=== PATIENT | female | born 1955 | race Two or more races ===

== ENCOUNTER 2019-08-20 03:25 | Emergency (ER) | payer MEDICARE, MEDICAID ==
[~2019-08-20] VITALS: Ht 162.6 cm; Wt 72.6 kg
[2019-08-20] MEDS ORDERED: ONDANSETRON HCL 4 MG/2 ML VIAL IV ONE ×2 (04:15→09:30)
[2019-08-20] MEDS ORDERED: MORPHINE SULFATE 4 MG/ML SYR/VIAL IV ONE ×3 (04:15→09:30)
[2019-08-20] MEDS ORDERED: SODIUM CHLORIDE 0.9% 1,000 ML IV ONE (04:15)
[2019-08-20 04:20] LABS: Basophils # (auto) 0.1 10 ^3/uL (0-0.2); Basophils % (auto) 0.5 % (0.0-2.0); Eosinophils # (auto) 0 10 ^3/uL (0-0.8); Eosinophils % (auto) 0.1 % (0.0-7.0); Hematocrit 42.6 % (36.0-46.0); Hemoglobin 14.3 g/dL (12.2-16.2); Lymphocytes # (auto) 0.2 10 ^3/uL (0.4-5.4); Lymphocytes % (auto) 1.5 % (10.0-50.0); Mean Corpuscular Hemoglobin 30.9 pg (28.0-32.0); Mean Corpuscular Hgb Conc. 33.7 g/dL (32.0-36.0); Mean Corpuscular Volume 91.7 fL (80.0-100.0); Monocytes # (auto) 0.8 10 ^3/uL (0-1.3); Monocytes % (auto) 5.8 % (0.0-12.0); Neutrophils # (auto) 13.1 10 ^3/uL (1.6-8.6); Neutrophils % (auto) 92.1 % (37.0-80.0); Platelet Count (auto) 524 10^3/uL (140-450); Red Blood Cells 4.64 10^6/uL (4.0-5.20); Red Cell Distribution Width 16.7 % (11.8-14.3); White Blood Cell 14.3 10^3/uL (4.4-10.8)
[2019-08-20 04:31] LABS: Albumin 3.9 g/dL (3.4-5.0); BUN/Creatinine Ratio 21.3; Calcium 9.4 mg/dL (8.5-10.1); Potassium 4.7 mmol/L (3.5-5.1)
[2019-08-20 04:33] LABS: Bilirubin, Total 1.1 mg/dL (0.2-1.0)
[2019-08-20] MEDS ORDERED: SODIUM CHLORIDE 0.9% 500 ML IVB ONE (06:19)
[2019-08-20] MEDS ORDERED: PANTOPRAZOLE 40 MG/10 ML VIAL INJ IV STA (06:19)
[2019-08-20] MEDS ORDERED: PIPERACILLIN-TAZOB 3.375GM 100 ML IV ONE (07:00)
[2019-08-20 08:47] VITALS: BP 183/82
[2019-08-20] MEDS ORDERED: MORPHINE SULFATE 4 MG/ML SYR/VIAL ONE (09:11)
[2019-08-20] MEDS ORDERED: ONDANSETRON HCL 4 MG/2 ML VIAL ONE (09:11)
== END 2019-08-20 09:34 | disposition short-term general hospital (02) ==
LOC: ER 03:32 → EDBD 03:32 → ER 09:34
DX: K56.609 Unspecified intestinal obstruction, unspecified as to partial versus complete obstruction (principal); E11.9 Type 2 diabetes mellitus without complications; E78.5 Hyperlipidemia, unspecified; I10 Essential (primary) hypertension; Z90.710 Acquired absence of both cervix and uterus
CPT/HCPCS: 36415; 71045; 74176; 80053; 82962; 83690; 85025; 96361; 96365; 96366; 96375; 96376; 99285; C9113; J2270; J2405; J2543

== ENCOUNTER 2023-02-13 10:36 | Inpatient (IN) | payer MEDICARE, MEDICAID ==
[~2023-02-13] VITALS: Ht 154.9 cm; Wt 78.8 kg
[2023-02-13 12:00] LABS: Basophils # (auto) 0 10 ^3/uL (0-0.2); Basophils % (auto) 0.6 % (0.0-2.0); Eosinophils # (auto) 0.1 10 ^3/uL (0-0.8); Eosinophils % (auto) 1.7 % (0.0-7.0); Hematocrit 36.4 % (36.0-46.0); Hemoglobin 11.6 g/dL (12.2-16.2); Lymphocytes # (auto) 0.8 10 ^3/uL (0.4-5.4); Lymphocytes % (auto) 14.1 % (10.0-50.0); Mean Corpuscular Hemoglobin 31.8 pg (28.0-32.0); Mean Corpuscular Volume 99.4 fL (80.0-100.0); Monocytes # (auto) 0.6 10 ^3/uL (0-1.3); Monocytes % (auto) 10.4 % (0.0-12.0); Neutrophils # (auto) 4.3 10 ^3/uL (1.6-8.6); Neutrophils % (auto) 73.2 % (37.0-80.0); Nucleated Red Blood Cells % 0.2 %; Red Blood Cells 3.66 10^6/uL (4.0-5.20); Red Cell Distribution Width 17.4 % (11.8-14.3); White Blood Cell 5.8 10^3/uL (4.4-10.8)
[2023-02-13] MEDS ORDERED: FUROSEMIDE 100 MG/10ML VIAL IV ONE (12:30)
[2023-02-13 12:32] LABS: Erythrocyte Sedimentation Rate 15 mm/hr (0-20)
[2023-02-13 12:43] LABS: Alanine Aminotransferase 50 U/L (7-40); Albumin 4.1 g/dL (3.2-4.8); Alkaline Phosphatase 82 U/L (46-116); Anion Gap 7 (5-15); Aspartate Aminotransferase 28 U/L (13-40); BUN/Creatinine Ratio 21.1 (10.0-20.0); Bilirubin, Total 0.8 mg/dL (0.2-1.0); Blood Urea Nitrogen 16 mg/dL (9-23); Calcium 8.9 mg/dL (8.5-10.1); Carbon Dioxide 32 mmol/L (20-30); Chloride 104 mmol/L (98-107); Glucose 79 mg/dL (74-106); Potassium 3.9 mmol/L (3.5-5.1); Sodium 143 mmol/L (136-145); Total Protein 6.6 g/dL (5.7-8.2)
[2023-02-13 12:51] LABS: CRP High Sensitivity 1.13 mg/dL (<1.0)
[2023-02-13 13:33] LABS: Urine Bacteria NONE SEEN /hpf (None Seen); Urine Blood Negative /uL (Negative); Urine Clarity Clear (Clear); Urine Color Yellow (Yellow); Urine Protein, UAD 1+ (Negative); Urine Specific Gravity 1.026 (1.001-1.035); Urine Urobilinogen Normal (Negative); Urine WBC 12 /hpf (0 - 5)
[2023-02-13 16:04] LABS: Base Excess 2.7 mmol/L (-2.0-2.0)
[2023-02-13] MEDS ORDERED: NITROGLYCERIN 0.4 MG SL TAB SL PRN (17:45)
[2023-02-13] MEDS ORDERED: MORPHINE SULFATE INJ 2 MG/ml SYRG IV PRN (17:45)
[2023-02-13] MEDS ORDERED: METH2.5T62 PO (17:48)
[2023-02-13] MEDS ORDERED: TRIA37.587 PO (17:48)
[2023-02-13] MEDS ORDERED: MET50T PO (17:48)
[2023-02-13] MEDS ORDERED: EMPA1TAB PO (17:48)
[2023-02-13] MEDS ORDERED: AMLO1TAB23 PO (17:48)
[2023-02-13] MEDS ORDERED: APIX5TAB PO (17:48)
[2023-02-13] MEDS ORDERED: LOSA100T58 PO (17:48)
[2023-02-13] MEDS ORDERED: GLIP10TA9 PO (17:48)
[2023-02-13] MEDS ORDERED: DRON400T PO (17:48)
[2023-02-13] MEDS ORDERED: METF-372 PO (17:48)
[2023-02-13] MEDS ORDERED: GAB100C PO (17:48)
[2023-02-13] MEDS ORDERED: METOCLOPRAMIDE HCL 5MG/ml INJ 2ml VIAL IV PRN (18:00)
[2023-02-13] MEDS ORDERED: cefTRIAXone 1GM/50ML D5W 50 ML IV ONE (18:00)
[2023-02-13] MEDS ORDERED: DEXTROSE (50%) 50ML SYRG IV PRN (18:00)
[2023-02-13] MEDS: FUROSEMIDE 20 MG/2 ML VIAL IV SCH (18:54)
[2023-02-13 19:35] VITALS: PULSE 98; RESP 22; O2SAT 95
[2023-02-13] MEDS: ACCU-CHEK COMFORT CURVE STRIP VI SCH (22:03)
[2023-02-13] MEDS: InsuLIN REG 1unit/0.01ml Soln (100units/ml) SC SCH (22:12)
[2023-02-13] MEDS: PRAVASTATIN SODIUM 20 MG TAB PO SCH (22:14)
[2023-02-13] MEDS: DRONEDARONE HCL 400 MG TAB PO SCH (22:16)
[2023-02-13] MEDS: APIXABAN 5 MG TAB PO SCH (22:16)
[2023-02-13] MEDS: DOCUSATE SOD 100 MG CAP PO SCH (22:16)
[2023-02-13 23:51] VITALS: BP 126/73; PULSE 120; RESP 16; TEMP 98.4; O2SAT 93
[2023-02-14] MEDS: ACETAMINOPHEN 325 MG TAB PO PRN (04:21)
[2023-02-14 05:00] VITALS: BP 135/87; PULSE 104; RESP 16; TEMP 98.3; O2SAT 97
[2023-02-14] MEDS: InsuLIN REG 1unit/0.01ml Soln (100units/ml) SC SCH ×4 (06:22→22:00)
[2023-02-14] MEDS: ACCU-CHEK COMFORT CURVE STRIP VI SCH ×4 (06:22→22:21)
[2023-02-14] MEDS: FUROSEMIDE 20 MG/2 ML VIAL IV SCH ×2 (06:23→17:58)
[2023-02-14 06:46] LABS: Basophils # (auto) 0 10 ^3/uL (0-0.2); Basophils % (auto) 0.4 % (0.0-2.0); Eosinophils # (auto) 0.1 10 ^3/uL (0-0.8); Eosinophils % (auto) 1.8 % (0.0-7.0); Hematocrit 34.8 % (36.0-46.0); Hemoglobin 11.3 g/dL (12.2-16.2); Lymphocytes # (auto) 0.7 10 ^3/uL (0.4-5.4); Mean Corpuscular Hemoglobin 31.9 pg (28.0-32.0); Mean Corpuscular Hgb Conc. 32.4 g/dL (32.0-36.0); Mean Corpuscular Volume 98.3 fL (80.0-100.0); Monocytes # (auto) 0.8 10 ^3/uL (0-1.3); Monocytes % (auto) 12.7 % (0.0-12.0); Neutrophils # (auto) 4.6 10 ^3/uL (1.6-8.6); Neutrophils % (auto) 74.1 % (37.0-80.0); Nucleated Red Blood Cells % 0.1 %; Red Blood Cells 3.54 10^6/uL (4.0-5.20); White Blood Cell 6.1 10^3/uL (4.4-10.8)
[2023-02-14 06:59] LABS: Alanine Aminotransferase 39 U/L (7-40); Albumin 3.9 g/dL (3.2-4.8); Alkaline Phosphatase 77 U/L (46-116); Anion Gap 7 (5-15); Aspartate Aminotransferase 18 U/L (13-40); BUN/Creatinine Ratio 16.5 (10.0-20.0); Bilirubin, Total 0.7 mg/dL (0.2-1.0); Blood Urea Nitrogen 13 mg/dL (9-23); Calcium 8.6 mg/dL (8.5-10.1); Carbon Dioxide 31 mmol/L (20-30); Chloride 103 mmol/L (98-107); Glucose 97 mg/dL (74-106); Potassium 3.2 mmol/L (3.5-5.1); Sodium 141 mmol/L (136-145); Total Protein 6.5 g/dL (5.7-8.2)
[2023-02-14 08:00] VITALS: BP 138/82; PULSE 91; PULSE 95; RESP 16; TEMP 98.9; O2SAT 93
[2023-02-14] MEDS: cefTRIAXone 1GM/50ML D5W 50 ML IV SCH (08:21)
[2023-02-14] MEDS ORDERED: PANTOPRAZOLE 40 MG/10 ML VIAL INJ IV SCH (10:00)
[2023-02-14] MEDS: METHOTREXATE 2.5 MG TAB PO SCH (10:00)
[2023-02-14] MEDS: DOCUSATE SOD 100 MG CAP PO SCH ×2 (10:55→22:19)
[2023-02-14] MEDS: LOSARTAN POTASSIUM 50 MG TAB PO SCH (10:57)
[2023-02-14] MEDS: APIXABAN 5 MG TAB PO SCH ×2 (10:57→22:19)
[2023-02-14] MEDS: GABAPENTIN 100 MG CAP PO SCH (10:58)
[2023-02-14] MEDS: METOPROLOL TARTRATE 50 MG TAB PO SCH (10:58)
[2023-02-14] MEDS: EMPAGLIFLOZIN 10 MG TAB PO SCH (10:58)
[2023-02-14] MEDS: DRONEDARONE HCL 400 MG TAB PO SCH ×2 (10:58→22:20)
[2023-02-14] MEDS: amLODIPine BESYLATE 5 MG TAB PO SCH (10:59)
[2023-02-14] MEDS: TRIAMTERENE/HCTZ 37.5/25 MG CAP/TAB PO SCH (11:42)
[2023-02-14 12:00] VITALS: BP 120/86; PULSE 109; RESP 16; TEMP 98.4; O2SAT 94
[2023-02-14 16:00] VITALS: BP 101/64; PULSE 83; RESP 16; TEMP 98.1; O2SAT 96
[2023-02-14 19:30] VITALS: PULSE 85; PULSE 86; RESP 19; O2SAT 96
[2023-02-14 22:00] VITALS: BP 122/78; PULSE 89; RESP 22; TEMP 98.9; O2SAT 99
[2023-02-14] MEDS: PRAVASTATIN SODIUM 20 MG TAB PO SCH (22:20)
[2023-02-15] VITALS (8 sets, daily range): BP systolic 115–158; BP diastolic 80–91; PULSE 58–102; RESP 18–22; TEMP 97.9–98.5; O2SAT 92–98
[2023-02-15] MEDS: ACCU-CHEK COMFORT CURVE STRIP VI SCH ×4 (05:31→22:36)
[2023-02-15] MEDS: InsuLIN REG 1unit/0.01ml Soln (100units/ml) SC SCH ×4 (05:31→22:42)
[2023-02-15] MEDS: FUROSEMIDE 20 MG/2 ML VIAL IV SCH ×2 (05:31→18:24)
[2023-02-15] MEDS: ACETAMINOPHEN 325 MG TAB PO PRN ×2 (05:32→22:31)
[2023-02-15] MEDS: EMPAGLIFLOZIN 10 MG TAB PO SCH (09:40)
[2023-02-15] MEDS: APIXABAN 5 MG TAB PO SCH ×2 (09:40→22:32)
[2023-02-15] MEDS: LOSARTAN POTASSIUM 50 MG TAB PO SCH (09:40)
[2023-02-15] MEDS: DRONEDARONE HCL 400 MG TAB PO SCH ×2 (09:40→22:32)
[2023-02-15] MEDS: METOPROLOL TARTRATE 50 MG TAB PO SCH (09:40)
[2023-02-15] MEDS: TRIAMTERENE/HCTZ 37.5/25 MG CAP/TAB PO SCH (09:40)
[2023-02-15] MEDS: cefTRIAXone 1GM/50ML D5W 50 ML IV SCH (09:40)
[2023-02-15] MEDS: DOCUSATE SOD 100 MG CAP PO SCH ×2 (09:41→22:32)
[2023-02-15] MEDS: GABAPENTIN 100 MG CAP PO SCH (09:41)
[2023-02-15] MEDS: amLODIPine BESYLATE 5 MG TAB PO SCH (09:41)
[2023-02-15] MEDS: METHOTREXATE 2.5 MG TAB PO SCH (09:45)
[2023-02-15] MEDS ORDERED: LACTULOSE 20Gm/30ML SOLN PO ONE (11:45)
[2023-02-15] MEDS ORDERED: METOPROLOL TARTRATE 1MG/1ML-5ML VIAL IV ONE (12:45)
[2023-02-15] MEDS: PRAVASTATIN SODIUM 20 MG TAB PO SCH (22:31)
[2023-02-16] VITALS (8 sets, daily range): BP systolic 120–131; BP diastolic 63–100; PULSE 54–136; RESP 16–20; TEMP 97.3–98.1; O2SAT 90–96
[2023-02-16] MEDS: FUROSEMIDE 20 MG/2 ML VIAL IV SCH ×2 (06:00→17:04)
[2023-02-16] MEDS: InsuLIN REG 1unit/0.01ml Soln (100units/ml) SC SCH ×4 (06:00→22:48)
[2023-02-16] MEDS: ACCU-CHEK COMFORT CURVE STRIP VI SCH ×4 (06:02→22:48)
[2023-02-16] MEDS ORDERED: METOPROLOL TARTRATE 1MG/1ML-5ML VIAL IV PRN (08:15)
[2023-02-16] MEDS: cefTRIAXone 1GM/50ML D5W 50 ML IV SCH (08:35)
[2023-02-16] MEDS: DRONEDARONE HCL 400 MG TAB PO SCH ×2 (08:36→22:44)
[2023-02-16] MEDS: TRIAMTERENE/HCTZ 37.5/25 MG CAP/TAB PO SCH (08:36)
[2023-02-16] MEDS: GABAPENTIN 100 MG CAP PO SCH (08:37)
[2023-02-16] MEDS: LOSARTAN POTASSIUM 50 MG TAB PO SCH (08:37)
[2023-02-16] MEDS: APIXABAN 5 MG TAB PO SCH ×2 (08:37→22:48)
[2023-02-16] MEDS: DOCUSATE SOD 100 MG CAP PO SCH ×2 (08:37→22:48)
[2023-02-16] MEDS: EMPAGLIFLOZIN 10 MG TAB PO SCH (08:37)
[2023-02-16] MEDS: METOPROLOL TARTRATE 25 MG TAB PO SCH ×2 (08:38→22:44)
[2023-02-16] MEDS: amLODIPine BESYLATE 5 MG TAB PO SCH (08:46)
[2023-02-16] MEDS ORDERED: FLEET ENEMA(ADULT) 135 ML PR ONE (12:30)
[2023-02-16] MEDS: ACETAMINOPHEN 325 MG TAB PO PRN (12:47)
[2023-02-16 16:27] LABS: Basophils # (auto) 0.1 10 ^3/uL (0-0.2); Basophils % (auto) 1.1 % (0.0-2.0); Eosinophils # (auto) 0.2 10 ^3/uL (0-0.8); Eosinophils % (auto) 3.3 % (0.0-7.0); Hematocrit 37.1 % (36.0-46.0); Hemoglobin 12.3 g/dL (12.2-16.2); Lymphocytes # (auto) 0.7 10 ^3/uL (0.4-5.4); Lymphocytes % (auto) 13.7 % (10.0-50.0); Mean Corpuscular Hemoglobin 32.3 pg (28.0-32.0); Mean Corpuscular Hgb Conc. 33.1 g/dL (32.0-36.0); Mean Corpuscular Volume 97.7 fL (80.0-100.0); Monocytes # (auto) 0.7 10 ^3/uL (0-1.3); Monocytes % (auto) 12.4 % (0.0-12.0); Neutrophils # (auto) 3.8 10 ^3/uL (1.6-8.6); Neutrophils % (auto) 69.5 % (37.0-80.0); Red Cell Distribution Width 16.5 % (11.8-14.3); White Blood Cell 5.5 10^3/uL (4.4-10.8)
[2023-02-16] MEDS: PRAVASTATIN SODIUM 20 MG TAB PO SCH (22:43)
[2023-02-17] VITALS (11 sets, daily range): BP systolic 111–138; BP diastolic 54–80; PULSE 74–115; RESP 12–19; TEMP 98.1–98.9; O2SAT 90–96
[2023-02-17] MEDS: FUROSEMIDE 20 MG/2 ML VIAL IV SCH ×2 (06:16→17:16)
[2023-02-17] MEDS: InsuLIN REG 1unit/0.01ml Soln (100units/ml) SC SCH ×4 (06:16→22:47)
[2023-02-17] MEDS: ACCU-CHEK COMFORT CURVE STRIP VI SCH ×4 (06:18→22:00)
[2023-02-17] MEDS ORDERED: fentaNYL CITRATE 100 MCG/2 ML VL IV ONE (08:15)
[2023-02-17] MEDS ORDERED: MIDAZOLAM HCL 2MG/2ML 2ml VIAL (1mg/ml) IV ONE (08:15)
[2023-02-17] MEDS ORDERED: LIDOCAINE VISCOUS 2% 15ML UD PO ONE (08:15)
[2023-02-17] MEDS ORDERED: NALOXONE HCL 0.4 MG/ML VIAL ONE (08:49)
[2023-02-17] MEDS ORDERED: FLUMAZENIL 0.1 MG/ML INJ 10ML MDV IV ONE (08:49)
[2023-02-17] MEDS ORDERED: AMIODARONE HCL 200 MG TAB PO ONE (10:30)
[2023-02-17] MEDS: amLODIPine BESYLATE 5 MG TAB PO SCH (10:49)
[2023-02-17] MEDS: GABAPENTIN 100 MG CAP PO SCH (10:49)
[2023-02-17] MEDS: TRIAMTERENE/HCTZ 37.5/25 MG CAP/TAB PO SCH (10:49)
[2023-02-17] MEDS: cefTRIAXone 1GM/50ML D5W 50 ML IV SCH (10:49)
[2023-02-17] MEDS: DOCUSATE SOD 100 MG CAP PO SCH ×2 (10:49→22:42)
[2023-02-17] MEDS: EMPAGLIFLOZIN 10 MG TAB PO SCH (10:50)
[2023-02-17] MEDS: AMOXICILLIN TRIHYDRATE 250 MG CAP PO SCH ×2 (14:52→22:43)
[2023-02-17] MEDS ORDERED: RIVAROXABAN 20 MG TAB PO SCH (18:00)
[2023-02-17] MEDS: PRAVASTATIN SODIUM 20 MG TAB PO SCH (22:40)
[2023-02-17] MEDS: CARVEDILOL 12.5 MG TAB PO SCH (22:42)
[2023-02-17] MEDS: AMIODARONE HCL 200 MG TAB PO SCH (22:43)
[2023-02-17] MEDS: SACUBITRIL-VALSARTAN 24mg/26mg TAB PO SCH (22:43)
[2023-02-18] VITALS (7 sets, daily range): BP systolic 97–116; BP diastolic 65–87; PULSE 51–137; RESP 17–18; TEMP 97.8–98.1; O2SAT 94–97
[2023-02-18] MEDS: AMOXICILLIN TRIHYDRATE 250 MG CAP PO SCH ×2 (06:00→13:29)
[2023-02-18] MEDS: FUROSEMIDE 20 MG/2 ML VIAL IV SCH (06:01)
[2023-02-18] MEDS: ACCU-CHEK COMFORT CURVE STRIP VI SCH ×2 (06:01→11:19)
[2023-02-18] MEDS: InsuLIN REG 1unit/0.01ml Soln (100units/ml) SC SCH ×2 (06:13→11:19)
[2023-02-18] MEDS: DOCUSATE SOD 100 MG CAP PO SCH (08:59)
[2023-02-18] MEDS: EMPAGLIFLOZIN 10 MG TAB PO SCH (08:59)
[2023-02-18] MEDS: AMIODARONE HCL 200 MG TAB PO SCH (09:00)
[2023-02-18] MEDS: TRIAMTERENE/HCTZ 37.5/25 MG CAP/TAB PO SCH (09:00)
[2023-02-18] MEDS: GABAPENTIN 100 MG CAP PO SCH (09:01)
[2023-02-18] MEDS: amLODIPine BESYLATE 5 MG TAB PO SCH (09:01)
[2023-02-18] MEDS: CARVEDILOL 12.5 MG TAB PO SCH (09:01)
[2023-02-18] MEDS: ACETAMINOPHEN 325 MG TAB PO PRN (09:05)
[2023-02-18] MEDS: SACUBITRIL-VALSARTAN 24mg/26mg TAB PO SCH (09:05)
[2023-02-18] MEDS ORDERED: AMIO200T33 PO (11:44)
[2023-02-18] MEDS ORDERED: SACU1TAB PO (11:44)
[2023-02-18] MEDS ORDERED: CAR125T PO (11:44)
[2023-02-18] MEDS ORDERED: RIVA20TA PO (11:44)
[2023-02-18] MEDS ORDERED: AMOX500C2 PO (11:47)
== END 2023-02-18 16:31 | disposition home or self-care (01) | DRG 291 ==
LOC: ER 10:36 → TELE-WESTW 17:38 → TELE 17:38 → TELE-WESTW 22:44
PROVIDERS: ADMIT Nurse Practitioner Family; ATTEND Family Medicine
PROC: B246ZZ4 Ultrasonography of Right and Left Heart, Transesophageal (ICD-10-PCS; principal; 2023-02-17)
DX: I11.0 Hypertensive heart disease with heart failure (principal); I50.43 Acute on chronic combined systolic (congestive) and diastolic (congestive) heart failure; J96.01 Acute respiratory failure with hypoxia; N30.00 Acute cystitis without hematuria; J90 Pleural effusion, not elsewhere classified; K59.00 Constipation, unspecified; E11.9 Type 2 diabetes mellitus without complications; E03.9 Hypothyroidism, unspecified; E78.00 Pure hypercholesterolemia, unspecified; I48.0 Paroxysmal atrial fibrillation; M06.9 Rheumatoid arthritis, unspecified; Z79.01 Long term (current) use of anticoagulants; Z79.899 Other long term (current) drug therapy; Z90.710 Acquired absence of both cervix and uterus
CPT/HCPCS: 36415; 36600; 71045; 74176; 80053; 81001; 82805; 82962; 83880; 84443; 84484; 85025; 85652; 86141; 87086; 87088; 87186; 93005; 93312; 96365; 96372; 96375; 96376; 99152; C9113; G0378; J0696; J1815; J2250

== ENCOUNTER 2023-10-22 10:21 | Emergency (ER) | payer MEDICARE, MEDICAID ==
[~2023-10-22] VITALS: Ht 157.5 cm; Wt 79.9 kg
[~2023-10-22 10:21] MED LIST: AMIO200T33 PO; AMLO1TAB23 PO; AMOX500C2 PO; APIX5TAB PO; CAR125T PO; DRON400T PO; EMPA1TAB PO; GAB100C PO; GLIP10TA9 PO; LOSA-535 PO; MET50T PO; METF-372 PO; METH2.5T62 PO; RIVA20TA PO; SACU1TAB PO; TRIA37.587 PO
[2023-10-22 11:41] VITALS: BP 176/76; PULSE 50; RESP 18; TEMP 97.9; O2SAT 92
== END 2023-10-22 14:22 | disposition home or self-care (01) ==
LOC: ER 10:21
DX: E04.9 Nontoxic goiter, unspecified (principal); I48.91 Unspecified atrial fibrillation; E11.9 Type 2 diabetes mellitus without complications; I10 Essential (primary) hypertension; E78.5 Hyperlipidemia, unspecified; Z90.710 Acquired absence of both cervix and uterus; Z79.899 Other long term (current) drug therapy
CPT/HCPCS: 76536; 82962; 93005

== ENCOUNTER 2023-12-09 01:38 | Inpatient (IN) | payer MEDICARE, MEDICAID ==
[2023-12-09] VITALS (8 sets, daily range): BP systolic 145–181; BP diastolic 59–81; PULSE 60–83; RESP 14–20; TEMP 98.3–99.8; O2SAT 19–97
[~2023-12-09] VITALS: Ht 157.5 cm; Wt 84.2 kg
[2023-12-09 02:35] LABS: Basophils # (auto) 0 10 ^3/uL (0-0.2); Basophils % (auto) 0.3 % (0.0-2.0); Eosinophils # (auto) 0 10 ^3/uL (0-0.8); Eosinophils % (auto) 0.2 % (0.0-7.0); Hemoglobin 15.9 g/dL (12.2-16.2); Lymphocytes # (auto) 0.8 10 ^3/uL (0.4-5.4); Lymphocytes % (auto) 7.5 % (10.0-50.0); Mean Corpuscular Hemoglobin 33.8 pg (28.0-32.0); Mean Corpuscular Hgb Conc. 33.8 g/dL (32.0-36.0); Monocytes # (auto) 0.5 10 ^3/uL (0-1.3); Monocytes % (auto) 5.1 % (0.0-12.0); Neutrophils # (auto) 8.9 10 ^3/uL (1.6-8.6); Neutrophils % (auto) 86.9 % (37.0-80.0); Platelet Count (auto) 290 10^3/uL (140-450); Red Cell Distribution Width 16.3 % (11.8-14.3); White Blood Cell 10.2 10^3/uL (4.4-10.8)
[2023-12-09 02:55] LABS: Alanine Aminotransferase 36 U/L (7-40); Alkaline Phosphatase 107 U/L (46-116)
[2023-12-09 02:56] LABS: Albumin 4.9 g/dL (3.2-4.8); Anion Gap 10 (5-15); Aspartate Aminotransferase 23 U/L (13-40); BUN/Creatinine Ratio 18.7 (10.0-20.0); Bilirubin, Total 0.7 mg/dL (0.2-1.0); Blood Urea Nitrogen 26 mg/dL (9-23); Calcium 10.6 mg/dL (8.7-10.4); Carbon Dioxide 29 mmol/L (20-30); Chloride 97 mmol/L (98-107); Glucose 331 mg/dL (74-106); Lipase 37 U/L (12-53); Potassium 4.4 mmol/L (3.5-5.1); Sodium 136 mmol/L (136-145); Total Protein 8.3 g/dL (5.7-8.2)
[2023-12-09] MEDS: ONDANSETRON HCL 4 MG/2 ML VIAL IV ONE (04:31)
[2023-12-09] MEDS: HYDROmorphone HCL 2 MG/ML VL/or syr IV ONE (04:33)
[2023-12-09] MEDS: SODIUM CHLORIDE 0.9% 2,000 ML IV ONE (04:40)
[2023-12-09] MEDS: PIPERACILLIN-TAZOB 3.375GM 100 ML IV ONE (04:40)
[2023-12-09] MEDS ORDERED: ONDANSETRON HCL 4 MG/2 ML VIAL IV PRN (07:30)
[2023-12-09] MEDS ORDERED: DEXTROSE (50%) 50ML SYRG IV PRN (07:30)
[2023-12-09] MEDS: SODIUM CHLORIDE 0.9% 1,000 ML IV SCH ×2 (08:21→22:00)
[2023-12-09 10:17] LABS: Urine Bacteria None Seen /hpf (None Seen)
[2023-12-09] MEDS ORDERED: GASTROGRAFIN 120 ML SOL ONE (10:27)
[2023-12-09 10:32] LABS: Urine Blood Negative /uL (Negative); Urine Clarity Clear (Clear); Urine Color Light-Yellow (Yellow); Urine Protein, UAD 1+ (Negative); Urine Specific Gravity 1.032 (1.001-1.035); Urine Urobilinogen Normal (Negative); Urine WBC 27 /hpf (0 - 5)
[2023-12-09] MEDS: ACCU-CHEK COMFORT CURVE STRIP VI SCH (12:00)
[2023-12-09] MEDS: InsuLIN REG 1unit/0.01ml Soln (100units/ml) SC SCH (12:00)
[2023-12-09] MEDS: hydrALAZINE HCL 20 MG/ML VL IV PRN (13:23)
[2023-12-09] MEDS: MORPHINE SULFATE INJ 2 MG/ml SYRG IV PRN (13:23)
[2023-12-09 16:34] LABS: Basophils # (auto) 0 10 ^3/uL (0-0.2); Basophils % (auto) 0.2 % (0.0-2.0); Eosinophils # (auto) 0 10 ^3/uL (0-0.8); Eosinophils % (auto) 0.7 % (0.0-7.0); Hemoglobin 14.1 g/dL (12.2-16.2); Lymphocytes # (auto) 0.6 10 ^3/uL (0.4-5.4); Lymphocytes % (auto) 8.8 % (10.0-50.0); Mean Corpuscular Hgb Conc. 33.5 g/dL (32.0-36.0); Mean Corpuscular Volume 98.6 fL (80.0-100.0); Monocytes # (auto) 0.5 10 ^3/uL (0-1.3); Monocytes % (auto) 7.6 % (0.0-12.0); Neutrophils # (auto) 5.9 10 ^3/uL (1.6-8.6); Neutrophils % (auto) 82.7 % (37.0-80.0); Platelet Count (auto) 267 10^3/uL (140-450); Red Blood Cells 4.26 10^6/uL (4.0-5.20); Red Cell Distribution Width 16.3 % (11.8-14.3); White Blood Cell 7.1 10^3/uL (4.4-10.8)
[2023-12-10] VITALS (13 sets, daily range): BP systolic 125–177; BP diastolic 55–77; PULSE 53–94; RESP 15–20; TEMP 97.7–99.4; O2SAT 93–98
[2023-12-10 00:20] LABS: Base Excess 1.2 mmol/L (-2.0-3.0)
[2023-12-10 00:58] LABS: Basophils # (auto) 0 10 ^3/uL (0-0.2); Basophils % (auto) 0.3 % (0.0-2.0); Eosinophils # (auto) 0 10 ^3/uL (0-0.8); Eosinophils % (auto) 0.6 % (0.0-7.0); Hematocrit 39.1 % (36.0-46.0); Hemoglobin 13.2 g/dL (12.2-16.2); Lymphocytes # (auto) 0.7 10 ^3/uL (0.4-5.4); Mean Corpuscular Hemoglobin 33.6 pg (28.0-32.0); Mean Corpuscular Hgb Conc. 33.7 g/dL (32.0-36.0); Mean Corpuscular Volume 99.6 fL (80.0-100.0); Monocytes # (auto) 0.4 10 ^3/uL (0-1.3); Monocytes % (auto) 6.5 % (0.0-12.0); Neutrophils # (auto) 5.3 10 ^3/uL (1.6-8.6); Neutrophils % (auto) 81.6 % (37.0-80.0); Nucleated Red Blood Cells % 0.1 %; Platelet Count (auto) 237 10^3/uL (140-450); Red Blood Cells 3.93 10^6/uL (4.0-5.20); Red Cell Distribution Width 16.1 % (11.8-14.3); White Blood Cell 6.5 10^3/uL (4.4-10.8)
[2023-12-10 01:16] LABS: COVID19 ANTIGEN SOFIA FIA NEGATIVE (NEGATIVE)
[2023-12-10 01:19] LABS: Alanine Aminotransferase 26 U/L (7-40); Albumin 4.2 g/dL (3.2-4.8); Alkaline Phosphatase 81 U/L (46-116); Anion Gap 5 (5-15); Aspartate Aminotransferase 21 U/L (13-40); BUN/Creatinine Ratio 23.7 (10.0-20.0); Blood Urea Nitrogen 18 mg/dL (9-23); Calcium 8.8 mg/dL (8.7-10.4); Carbon Dioxide 30 mmol/L (20-30); Glucose 171 mg/dL (74-106)
[2023-12-10 01:20] LABS: Bilirubin, Total 0.4 mg/dL (0.2-1.0); Total Protein 7.1 g/dL (5.7-8.2)
[2023-12-10 01:26] LABS: Chloride 111 mmol/L (98-107); Sodium 146 mmol/L (136-145)
[2023-12-10] MEDS: SACUBITRIL-VALSARTAN 24mg/26mg TAB PO SCH (10:03)
[2023-12-10] MEDS: CARVEDILOL 12.5 MG TAB PO SCH (10:05)
[2023-12-10] MEDS: METOPROLOL TARTRATE 50 MG TAB PO SCH (10:05)
[2023-12-11] VITALS (9 sets, daily range): BP systolic 114–144; BP diastolic 35–79; PULSE 46–89; RESP 16–19; TEMP 97.8–98.4; O2SAT 90–96
== END 2023-12-11 19:25 | disposition home or self-care (01) | DRG 388 ==
LOC: ER 01:38 → OVERFLOW 07:23 → WEST WING 10:26
PROVIDERS: ADMIT Nurse Practitioner; ATTEND Nurse Practitioner Acute Care
PROC: 0D9670Z Drainage of Stomach with Drainage Device, Via Natural or Artificial Opening (ICD-10-PCS; principal; 2023-12-09)
DX: K56.609 Unspecified intestinal obstruction, unspecified as to partial versus complete obstruction (principal); N17.0 Acute kidney failure with tubular necrosis; E66.9 Obesity, unspecified; I10 Essential (primary) hypertension; E78.5 Hyperlipidemia, unspecified; I48.91 Unspecified atrial fibrillation; E11.65 Type 2 diabetes mellitus with hyperglycemia; Z90.710 Acquired absence of both cervix and uterus; Z79.899 Other long term (current) drug therapy; Z79.2 Long term (current) use of antibiotics; Z68.34 Body mass index [BMI] 34.0-34.9, adult
CPT/HCPCS: 36415; 36600; 71045; 74176; 74250; 80053; 81001; 82805; 82962; 83036; 83690; 84484; 85025; 85379; 87426; 96361; 96365; 96375; 99291; G0378; J1815; J2405; J2543

== ENCOUNTER 2024-09-10 11:15 | Inpatient (IN) | payer MEDICARE, MEDICAID ==
[~2024-09-10] VITALS: Ht 157.5 cm; Wt 79.9 kg
--- NOTE | 2024-09-10 12:41 | DVH ---
EXAM: XY CHEST TWO VIEWS ROUTINE HISTORY: sob COMPARISON: Chest x-ray dated 02/13/2023. Chest x-ray and CT scan of the abdomen dated 12/09/2023 wer e not made available in the PACS system for viewing. TECHNIQUE: Frontal and lateral views of the chest were performed. FINDINGS: There is stable scarring in the right lung base with blunting of the right lateral and posterior cost ophrenic angles. There is new opacity along the left lung base lateral chest wall on the frontal view . There is mild interstitial prominence, greatest centrally. No pneumothorax. The heart is enlarged . No fractures are identified about the bony thorax. IMPRESSION: 1. New opacity along the left lateral chest wall may be due to scarring, pneumonia, or mass. Recommen d follow-up CT scan of the chest for better characterization. 2. Stable right lung base scarring. 3. Cardiomegaly.
--- NOTE | 2024-09-10 12:54 | ECG ---
[facility] Test Date: 2024-09-10 Test Time: 11:53:08 Pat Name: ERIC LINDA Department: ER Room: 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
[2024-09-10 13:19] LABS: Basophils # (auto) 0 10 ^3/uL (0-0.2); Basophils % (auto) 0.9 % (0.0-2.0); Eosinophils # (auto) 0.1 10 ^3/uL (0-0.8); Eosinophils % (auto) 2.6 % (0.0-7.0); Hematocrit 36.4 % (36.0-46.0); Lymphocytes # (auto) 0.6 10 ^3/uL (0.4-5.4); Mean Corpuscular Hemoglobin 31.3 pg (28.0-32.0); Mean Corpuscular Volume 94.8 fL (80.0-100.0); Monocytes # (auto) 0.5 10 ^3/uL (0-1.3); Monocytes % (auto) 10.1 % (0.0-12.0); Neutrophils # (auto) 3.5 10 ^3/uL (1.6-8.6); Neutrophils % (auto) 73.4 % (37.0-80.0); Platelet Count (auto) 222 10^3/uL (140-450); Red Blood Cells 3.84 10^6/uL (4.0-5.20); Red Cell Distribution Width 16.1 % (11.8-14.3); White Blood Cell 4.7 10^3/uL (4.4-10.8)
[2024-09-10 13:28] LABS: Sodium 144 mmol/L (136-145)
[2024-09-10 13:29] LABS: Anion Gap 5 (5-15); Calcium 9.6 mg/dL (8.7-10.4); Carbon Dioxide 30 mmol/L (20-31)
[2024-09-10 13:33] LABS: Chloride 109 mmol/L (98-107)
[2024-09-10 13:34] LABS: BUN/Creatinine Ratio 26.6 (10.0-20.0); Blood Urea Nitrogen 21 mg/dL (9-23)
[2024-09-10 13:43] LABS: Glucose 164 mg/dL (74-106)
[2024-09-10 16:15] LABS: Urine Bacteria None Seen /hpf (None Seen)
[2024-09-10] MEDS: FUROSEMIDE 40 MG/4 ML VIAL IV ONE ×2 (16:33→22:15)
[2024-09-10 16:54] LABS: Urine Blood Negative /uL (Negative); Urine Clarity Clear (Clear); Urine Color Light-Yellow (Yellow); Urine Protein, UAD 1+ (Negative); Urine Specific Gravity 1.026 (1.001-1.035); Urine Squamous Epithelial Cell None Seen /hpf (<5); Urine Urobilinogen 2 mg/dL (Negative); Urine WBC 2 /HPF (0-5)
--- NOTE | 2024-09-10 18:49 | ED.PDOC ---
History of Present Illness HPI Comments 69-year-old female who comes in with chief complaint of shortness for breath with some epigastric pain. The patient was also been having a headache for the past two days. The patient was also stating that she has been having some leg swelling x1 day. Chief Complaint: Shortness of Breath Time Seen by MD: 11:19 Primary Care Provider: ? Reviewed Notes: Nurses Notes, Medications, Allergies (No allergies to medications) Allergies: Coded Allergies: NO KNOWN ALLERGIES (Unverified , 08/20/19) Home Meds Active Scripts Amoxicillin Trihydrate (Amoxicillin) 500 Mg Cap, 1 CAP PO TID, #30 CAP Prov:LENA PATTERSON MD 02/18/23 Sacubitril-Valsartan (Entresto 24-26 mg) 1 Tab Tab, 2 TAB PO BID, #180 TAB Prov:LENA PATTERSON MD 02/18/23 Carvedilol (Coreg) 12.5 Mg Tab, 1 TAB PO BID, #180 TAB 1 Refill Prov:LENA PATTERSON MD 02/18/23 Rivaroxaban (XARELTO) 20 Mg Tab, 1 TAB PO DAILY, #90 TAB 3 Refills Prov:LENA PATTERSON MD 02/18/23 Amiodarone Hcl (Amiodarone Hcl) 200 Mg Tab, 1 TAB PO BID, #180 TAB 5 Refills Prov:LENA PATTERSON MD 02/18/23 Reported Medications Gabapentin (Gabapentin) 100 Mg Cap, 1 CAP PO DAILY 02/13/23 Hydrochlorothiazide W/Triamter (Dyazide 37.5/25MG) 1 Cap Cp, 1 CAP PO DAILY 02/13/23 Amlodipine Besylate (Amlodipine Besylate) 10 Mg Tab, 0.5 TAB PO DAILY 02/13/23 Metoprolol Tartrate (LOPRESSOR TABLET) 50 Mg Tb, 1 TAB PO DAILY 02/13/23 Methotrexate (Methotrexate Sodium) 2.5 Mg Tab, 2.5 MG PO DAILY 02/13/23 Metformin Hydrochloride (Metformin Hcl) 1,000 Mg Tab, 1 TAB PO BID 02/13/23 Losartan Potassium (Losartan Potassium) 100 Mg Tab, 1 TAB PO DAILY 02/13/23 Glipizide (Glipizide) 10 Mg Tab, 1 TAB PO BID 02/13/23 Dronedarone Hydrochloride (Multaq) 400 Mg Tab, 1 TAB PO BID 02/13/23 Empagliflozin (Jardiance) 10 Mg Tab, 1 TAB PO DAILY 02/13/23 Apixaban Base (ELIQUIS) 5 Mg Tab, 1 TAB PO BID 02/13/23 Mode of Arrival: Ambulatory Past Medical History PAST MEDICAL HISTORY: AFIB, DM, High Lipids, HTN, PR (PR two weeks ago) Past Medical History (Other): Glaucoma Surgical History: Cholecystectomy, , Hernia Repair, Hysterectomy FOREST EXAMINER History: No Pertinent FOREST EXAMINER History Family History Family History: Family hx of heart zion Social History Smoker: Non-Smoker Alcohol: Denies ETOH Use Drugs: Denies Drug Use Lives In: Home Constitutional: denies: chills, diaphoresis, fatigue, fever, malaise, sweats, weakness, others EENTM: denies: blurred vision, double vision, ear bleeding, ear discharge, ear drainage, ear pain, ear ringing, eye pain, eye redness, hearing loss, mouth pain, mouth swelling, nasal discharge, nose bleeding, nose congestion, nose pain, photophobia, tearing, throat pain, throat swelling, voice changes, others Respiratory: reports: shortness of breath; denies: cough, hemoptysis, o rthopnea, SOB at rest, SOB with excertion, stridor, wheezing, others Cardiovascular: denies: chest pain, dizzy spells, diaphoresis, Dyspnea on exertion, edema, irregular heart beat, left arm pain, lightheadedness, palpitations, PND, syncope, others Gastrointestinal: reports: abdominal pain; denies: abdomen distended, blood streaked bowels, constipated, diarrhea, dysphagia, difficulty swallowing, hematemesis, melena, nausea, poor appetite, poor fluid intake, rectal bleeding, rectal pain, vomiting, others Genitourinary: denies: abnormal vagina bleeding, burning, dyspareunia, dysuria, flank pain, frequency, hematuria, incontinence, pain, , vagina discharge, urgency, others Neurological: reports: headache; denies: dizziness, fainting, left sided numbne ss, left sided weakness, numbness, paresthesia, pre-existing deficit, right sided numbness, right sided weakness, seizure, speech problems, tingling, tremors, weakness, others Musculoskeletal: denies: back pain, gout, joint pain, joint swelling, muscle pain, muscle stiffness, neck pain, others Integumetry: reports: others (Bilateral leg swelling); denies: bruises, change in color, change in hair/nails, dryness, laceration, lesions, lumps, rash, wounds Allergic/Immunocompromised: denies: Difficulty Healing, Frequent Infections, Hives, Itching, others Hematologic/Lymphatic: denies: anemia, blood clots, easy bleeding, easy bruising, swollen glands, others Endocrine: denies: excessive hunger, excessive sweating, excessive thirst, excessive urination, flushing, intolerance to cold, intolerance to heat, unexplained weight gain, unexplained weight loss, others Psychiatric: denies: anxiety, bipolar disorder, depression, hopeless, panic disorder, schizophrenia, sleepless, suicidal, others Physical Exam General Appearance: Moderate Distress HEENT: Normal ENT Inspection, Pharynx Normal, TMs Normal Neck: Full Range of Motion, Non-Tender, Normal, Normal Inspection Respiratory: Chest Non-Tender, Lungs Clear, No Accessory Muscle Use, No Respiratory Distress, Normal Breath Sounds Cardiovascular: Irregular, No Edema, No JVD, No Murmur, No Gallop Breast Exam: Deferred Gastrointestinal: No Organomegaly, Non Tender, No Pulsatile Mass, Normal Bowel Sounds, Soft Genitalia: Deferred Pelvic: Deferred Rectal: Deferred Extremities: No calf tenderness, Normal capillary refill, Normal inspection, Normal range of motion, Non-tender, No pedal edema Musculoskeletal : Apperance: Normal Neurologic: Alert, bingo manager II-XII nml as Tested, No Motor Deficits, Normal Affect, Normal Mood, No Sensory Deficits Cerebellar Function: Normal Reflexes: Normal Skin: Dry, Normal Color, Warm Lymphatic: No Adenopathy Was a procedure done? Was a procedure done?: No EKG EKG : Pulse Rate (adult): 101 [place]: Normal Cardiac Rhythm: Afib Differential Dx Considerations may include: Generalized weakness, electrolyte imbalance, ACS, PR, dehydration X-Ray, Labs, Meds, VS Vital Signs Date Time Temp Pulse Resp B/P (MAP) Pulse Ox O2 Delivery O2 Flow Rate FiO2 09/10/24 19:58 98.1 90 18 138/85 (102) 94 98.1 09/10/24 16:34 94 18 140/82 (101) 92 09/10/24 16:33 140/82 09/10/24 15:53 97.9 105 18 134/92 (106) 94 97.9 09/10/24 13:33 97.9 101 16 129/80 (96) 94 97.9 09/10/24 11:53 101 09/10/24 11:49 97.8 91 18 118/62 (80) 95 97.8 Lab Test 09/10/24 16:02 09/10/24 15:52 09/10/24 13:48 09/10/24 12:55 Range/Units Urine Color Light-yellow Yellow Urine Clarity Clear Clear Urine pH 6.0 5.0-9.0 Urine Specific [place] 1.026 1.001-1.035 Urine Protein 1+ H Negative Urine Ketones Negative Negative Urine Blood Negative Negative /uL Urine Nitrite Negative Negative Urine Bilirubin Negative Negative Urine Urobilinogen 2 H Negative mg/dL Urine Leukocyte Esterase Negative Negative /uL Urine RBC 2 0 - 4 /hpf Urine Microscopic WBC 2 0-5 /HPF Urine Squamous Epithelial Cells None seen <5 /hpf Urine Bacteria None seen None Seen /hpf Urine Glucose 4+ H Normal mg/dL Troponin I High Sensitivity 19 22 20 </=34 ng/L White Blood Count 4.7 4.4-10.8 10^3/uL Red Blood Count 3.84 L 4.0-5.20 10^6/uL Hemoglobin 12.0 L 12.2-16.2 g/dL Hematocrit 36.4 36.0-46.0 % Mean Corpuscular Volume 94.8 80.0-100.0 fL Mean Corpuscular Hemoglobin 31.3 28.0-32.0 pg Mean Corpuscular Hemoglobin Concent 33.0 32.0-36.0 g/dL Red Cell Distribution Width 16.1 H 11.8-14.3 % Platelet Count 222 140-450 10^3/uL Mean Platelet Volume 7.2 6.9-10.8 fL Neutrophils (%) (Auto) 73.4 37.0-80.0 % Lymphocytes (%) (Auto) 13.0 10.0-50.0 % Monocytes (%) (Auto) 10.1 0.0-12.0 % Eosinophils (%) (Auto) 2.6 0.0-7.0 % Basophils (%) (Auto) 0.9 0.0-2.0 % Neutrophils # (Auto) 3.5 1.6-8.6 10 ^3/uL Lymphocytes # (Auto) 0.6 0.4-5.4 10 ^3/uL Monocytes # (Auto) 0.5 0-1.3 10 ^3/uL Eosinophils # (Auto) 0.1 0-0.8 10 ^3/uL Basophils # (Auto) 0 0-0.2 10 ^3/uL Nucleated Red Blood Cells 0.0 % Sodium Level 144 136-145 mmol/L Potassium Level 5.0 3.5-5.1 mmol/L Chloride Level 109 H 98-107 mmol/L Carbon Dioxide Level 30 20-31 mmol/L Anion Gap 5 5-15 Blood Urea Nitrogen 21 9-23 mg/dL Creatinine 0.79 0.550-1.02 mg/dL Glomerular Filtration Rate Calc 80 >90 mL/min BUN/Creatinine Ratio 26.6 H 10.0-20.0 Serum Glucose 164 H 74-106 mg/dL Calcium Level 9.6 8.7-10.4 mg/dL B-Type Natriuretic Peptide 1597.05 0-100 pg/mL Test 09/10/24 11:55 Range/Units POC Glucose 188 H 70-106 mg/dl Current Medications Medications (Trade) Dose Ordered Sig/Norberto Route Start Time Stop Time Status Last Admin Furosemide (Lasix Injection) 40 mg ONCE ONCE IV 09/10/24 12:15 09/10/24 12:17 DC 09/10/24 16:33 IV Hep-Lock was established The chest x-ray shows: IMPRESSION: 1. New opacity along the left lateral chest wall may be due to scarring, pneumonia, or mass. Recommend follow-up CT scan of the chest for better characterization. 2. Stable right lung base scarring. 3. Cardiomegaly. The patient was given Lasix 40 mg IV push At this time the CBC is within normal limits The chemistry panel is within normal limits The BNP is 1597.05 At this time, the patient was urine test is negative for infection At this time, the patient was being Images Reviewed?: Images reviewed and evaluated by me Time of 1ST Reevaluation: 20:51 Reevaluation 1ST: Unchanged Patient Education/Counseling: Diagnosis, Treatment, Prognosis Family Education/Counseling: No Family Present Departure 1 Departure Time of Disposition: 20:52 Impression: Primary Impression: Acute coronary syndrome Disposition: 09 ADMITTED INPATIENT Admit to: [facility]: Fair Critical Care Note Critical Care Time?: Yes (45 min-critical care time only) Stability Stability form required: Yes Unstable for transfer: Telemetry monitoring (Telemetry monitoring required), ED Physician Assesment (Clinical assesment) Heart Score Heart Score: Heart Score Response (Comments) Value History Moderate Suspicious 1 EKG Normal 0 Age >65 2 Risk Factors >3 or Hx ASHD 2 Troponin Normal limit 0 Total 5 FRANKO CHAVEZ MD September 10, 2024 18:49
[2024-09-10] MEDS ORDERED: NITROGLYCERIN 0.4 MG SL TAB SL PRN (22:00)
[2024-09-10] MEDS ORDERED: DOCUSATE SOD 100 MG CAP PO PRN (22:00)
[2024-09-10] MEDS ORDERED: ACETAMINOPHEN 325 MG TAB PO PRN (22:00)
[2024-09-10] MEDS ORDERED: DEXTROSE (50%) 50ML SYRG IV PRN (22:15)
[2024-09-10 22:42] LABS: Albumin 4.4 g/dL (3.2-4.8); Bilirubin, Direct 0.1 mg/dL (<0.3); Bilirubin, Total 0.3 mg/dL (0.2-1.0); Magnesium 1.9 mg/dL (1.6-2.6); Total Protein 7.7 g/dL (5.7-8.2)
[2024-09-11] VITALS (9 sets, daily range): BP systolic 112–171; BP diastolic 55–105; PULSE 74–100; RESP 16–20; TEMP 97–98.3; O2SAT 92–100
[2024-09-11 00:08] LABS: COVID19 ANTIGEN SOFIA FIA NEGATIVE (NEGATIVE); Rapid Influenza A Negative (Negative); Rapid Influenza B Negative (Negative)
--- NOTE | 2024-09-11 00:41 | DVHHP2 ---
History of Present Illness History of Present Illness Patient is 69 years old male with past medical history of hypertension, diabetes mellitus, atrial fibrillation, hyperlipidemia, coronary artery disease-MO came with a complaint of shortness of breaths. As per patient she has been having shortness of breath today worsening with exertion, associated with the orthopnea. Patient also reported leg swelling for 1 day. As per patient she has been also having chest pain for 1 week, pressure-like, intermittent, increased with the exertion. On further inquiry patient also reported palpitation and stomach bloating. As per patient and her daughter patient had MO 2 weeks before and went to [facility] and got treated and patient was put on cardiac vest. As per family patient's echo was done and EF was 20% at [facility]. Initial lab workup revealed BNP 1597. HGB A1c 9.4. CXR revealed-1. New opacity along the left lateral chest wall may be due to scarring, pneumonia, or mass. Recommend follow-up CT scan of the chest for better characterization. Stable right lung base scarring.3. Cardiomegaly. Negative for COVID-19 or influenza type a or B, urinalysis negative for UTI. CT chest revealed1- No evidence of pulmonary consolidation or mass, Small to moderate pericardial effusion and small bilateral pleural effusions with loculated fluid along the left lung creating pseudo mass. Cardiomegaly with severe coronary artery calcifications. Past Medical History hypertension, diabetes mellitus, atrial fibrillation, hyperlipidemia, coronary artery disease-MO Past Surgical History Cholecystectomy, hysterectomy, hernia repair Family History Mom had diabetes mellitus Past Social History Lives with son, denies smoking/alcoholism/drug abuse Review of Systems Review of Systems Allergy- NKDA Patient was seen today at the bedside Gastrointestinal- denies any rectal bleeding, nausea or vomiting Musculoskeletal-denies acute joint swelling or tenderness or redness Neurological- denies acute dysarthria, dysphagia, change in vision Psychiatry- denies depression or SI or HI Skin- denies acute rash or purpura Allergies: Coded Allergies: NO KNOWN ALLERGIES (Unverified , 08/20/19) Medications Current Medications Medications Dose Ordered Sig/Norberto Route Start Time Stop Time Status Last Admin Dose Admin Sodium Chloride 10 ml Q8HR IV 09/10/24 22:00 Docusate Sodium 100 mg BIDPRN PRN PO 09/10/24 22:00 Enoxaparin Sodium 40 mg DAILY SC 09/11/24 10:00 Acetaminophen 650 mg Q6HP PRN PO 09/10/24 22:00 Nitroglycerin 0.4 mg Q5MINP PRN SL 09/10/24 22:00 Furosemide 40 mg BIDD IV 09/11/24 06:00 Amiodarone HCl 200 mg BID PO 09/11/24 10:00 Empaglifozin 10 mg DAILY PO 09/11/24 10:00 Rivaroxaban 20 mg DAILY PO 09/11/24 10:00 UNV Sacubitril/ Valsartan 2 tab BID PO 09/11/24 10:00 Amlodipine Besylate 5 mg DAILY PO 09/11/24 10:00 Pantoprazole Sodium 40 mg DAILY@0600 PO 09/11/24 06:00 Diagnostic Test (Pha) 1 strip ACHS 09/11/24 07:00 Insulin Human Regular ACHS SC 09/11/24 07:00 Dextrose 50 ml UD PRN IV 09/10/24 22:15 Atorvastatin Calcium 80 mg HS PO 09/11/24 22:00 Carvedilol 12.5 mg Q12HR PO 09/11/24 10:00 Exam Vital Signs Vital Signs Date Time Temp Pulse Resp B/P (MAP) Pulse Ox O2 Delivery O2 Flow Rate FiO2 09/10/24 23:01 98.5 96 20 135/92 (106) 98.5 09/10/24 20:00 96 Exam General examination- awake, alert, oriented HEENT- PEERLA, no acute nasal discharge Cardiovascular- S1-S2 audible, rate and rhythm regular, no murmur Respiratory-bilateral lung crackles+ Gastrointestinal-nontender, bowel sound+. Nondistended Musculoskeletal-no acute joint swelling or tenderness or redness Lower extremity- bilateral leg edema+++ Neurological- cranial nerves intact, no acute dysarthria or dysphagia Psychiatry- denies depression or SI or HI Skin- no acute rash or purpura Labs/Xrays Labs Test 09/10/24 23:21 09/10/24 16:02 09/10/24 15:52 09/10/24 13:48 Range/Units Influenza Type A Antigen Negative Negative Influenza Type B Antigen Negative Negative SARS-CoV-2 Antigen (Rapid) Negative NEGATIVE Urine Color Light-yellow Yellow Urine Clarity Clear Clear Urine pH 6.0 5.0-9.0 Urine Specific [place] 1.026 1.001-1.035 Urine Protein 1+ H Negative Urine Ketones Negative Negative Urine Blood Negative Negative /uL Urine Nitrite Negative Negative Urine Bilirubin Negative Negative Urine Urobilinogen 2 H Negative mg/dL Urine Leukocyte Esterase Negative Negative /uL Urine RBC 2 0 - 4 /hpf Urine Microscopic WBC 2 0-5 /HPF Urine Squamous Epithelial Cells None seen <5 /hpf Urine Bacteria None seen None Seen /hpf Urine Glucose 4+ H Normal mg/dL Magnesium Level 1.9 1.6-2.6 mg/dL Total Bilirubin 0.3 0.2-1.0 mg/dL Direct Bilirubin 0.1 <0.3 mg/dL Aspartate Amino Transferase (AST) 23 13-40 U/L Alanine Aminotransferase (ALT) 29 7-40 U/L Alkaline Phosphatase 91 46-116 U/L Troponin I High Sensitivity 19 </=34 ng/L Total Protein 7.7 5.7-8.2 g/dL Albumin 4.4 3.2-4.8 g/dL Thyroid Stimulating Hormone (TSH) 0.97 0.55-4.78 uIU/mL Test 09/10/24 12:55 09/10/24 11:55 Range/Units White Blood Count 4.7 4.4-10.8 10^3/uL Red Blood Count 3.84 L 4.0-5.20 10^6/uL Hemoglobin 12.0 L 12.2-16.2 g/dL Hematocrit 36.4 36.0-46.0 % Mean Corpuscular Volume 94.8 80.0-100.0 fL Mean Corpuscular Hemoglobin 31.3 28.0-32.0 pg Mean Corpuscular Hemoglobin Concent 33.0 32.0-36.0 g/dL Red Cell Distribution Width 16.1 H 11.8-14.3 % Platelet Count 222 140-450 10^3/uL Mean Platelet Volume 7.2 6.9-10.8 fL Neutrophils (%) (Auto) 73.4 37.0-80.0 % Lymphocytes (%) (Auto) 13.0 10.0-50.0 % Monocytes (%) (Auto) 10.1 0.0-12.0 % Eosinophils (%) (Auto) 2.6 0.0-7.0 % Basophils (%) (Auto) 0.9 0.0-2.0 % Neutrophils # (Auto) 3.5 1.6-8.6 10 ^3/uL Lymphocytes # (Auto) 0.6 0.4-5.4 10 ^3/uL Monocytes # (Auto) 0.5 0-1.3 10 ^3/uL Eosinophils # (Auto) 0.1 0-0.8 10 ^3/uL Basophils # (Auto) 0 0-0.2 10 ^3/uL Nucleated Red Blood Cells 0.0 % Sodium Level 144 136-145 mmol/L Potassium Level 5.0 3.5-5.1 mmol/L Chloride Level 109 H 98-107 mmol/L Carbon Dioxide Level 30 20-31 mmol/L Anion Gap 5 5-15 Blood Urea Nitrogen 21 9-23 mg/dL Creatinine 0.79 0.550-1.02 mg/dL Glomerular Filtration Rate Calc 80 >90 mL/min BUN/Creatinine Ratio 26.6 H 10.0-20.0 Serum Glucose 164 H 74-106 mg/dL Calcium Level 9.6 8.7-10.4 mg/dL B-Type Natriuretic Peptide 1597.05 0-100 pg/mL POC Glucose 188 H 70-106 mg/dl Assessment/Plan Assessment/Plan Assessment and plan Acute hypoxic respiratory failure likely due to acute on chronic HFrEF Acute on chronic HFrEF Bilateral leg edema likely due to acute on chronic HFrEF Atrial fibrillation rate controlled Small to moderate pericardial effusion small bilateral pleural effusions with loculated fluid along the left lung creating pseudo mass. Cardiomegaly with severe coronary artery calcifications. Hypertension Diabetes mellitus type 2, uncontrolled, HGB A1c 9.4 CAD, MO recent onset CT chest revealed- No evidence of pulmonary consolidation or mass, Small to moderate pericardial effusion and small bilateral pleural effusions with loculated fluid along the left lung creating pseudo mass. Cardiomegaly with severe coronary artery calcifications. Negative for influenza and COVID-[address] chest without contrast Ordered echo 2D Ordered TSH, COVID-19, influenza Ordered Lasix 40 mg IV b.i.d. Ordered carvedilol 12.5 mg p.o. b.i.d. Ordered insulin sliding scale Resume home medication amiodarone, Jardiance, Xarelto, amlodipine, Entresto, atorvastatin Ordered cardiology consult for further evaluation and care Goals of care, Code status ; discussed with >15 minutes PUD prophylaxis: Pantoprazole DVT prophylaxis: Xarelto Plan discussed with Dr. Vee , nursing staff, Total time spent on patient evaluation, chart review, assessment and plan, discussion discussion >35 minutes Plan discussed with: Patient, Daughter, Other My Orders Orders - JOE PAGE RESIDENT Procedure Category Date Status Time Admit ADMIT 09/10/24 Transmitted 21:47 Code Status CODE 09/10/24 Transmitted 21:47 Sodium Chloride Lock PHA 09/10/24 In Process (Saline Lock Ns) 22:00 Docusate Sodium PHA 09/10/24 In Process Capsule (Colace 22:00 Enoxaparin Sodium PHA 09/11/24 In Process (Lovenox) 10:00 Complete Blood Count LAB 09/11/24 Logged 04:00 Comprehensive LAB 09/11/24 Logged Metabolic Panel 04:00 Echo 2d Mode Cardiac US 09/10/24 Logged DOP 21:47 Acetaminophen Tablet PHA 09/10/24 In Process (Tylenol Tablet) 22:00 Nitroglycerin PHA 09/10/24 In Process Sublingual (Ntrostat 22:00 Notify Of Changes MARINO 09/10/24 In Process From Base 21:47 Telecommunication Tower Technician For MARINO 09/10/24 In Process 24 Hours 21:47 Consistent DIET 09/11/24 Transmitted Carb(Ccho)Diabetes Breakfast Furosemide Injection PHA 09/11/24 In Process (Lasix Injection) 06:00 Amiodarone Tablet PHA 09/11/24 In Process (Cordarone Tablet) 10:00 Empagliflozin PHA 09/11/24 In Process (Jardiance) 10:00 Rivaroxaban Tablet PHA 09/11/24 Pending (Xarelto Tablet) 10:00 Sacubitril-Valsartan PHA 09/11/24 In Process (Entresto 24-26 Mg 10:00 Amlodipine Tablet PHA 09/11/24 In Process (Norvasc Tablet) 10:00 Pantoprazole Tablet PHA 09/11/24 In Process (Protonix Tablet) 06:00 * Cardiology Consult CONS 09/10/24 Transmitted 22:08 Glucose Blood PHA 09/11/24 In Process (Accu-Chek Comfort 07:00 Insulin R (Human) PHA 09/11/24 In Process (Insulin R) 07:00 Dextrose 50% Syringe PHA 09/10/24 In Process 22:15 Atorvastatin (Lipitor) PHA 09/11/24 In Process 22:[address] 09/10/24 Taken 23:23 Electrocardigram EKG 09/10/24 Logged 23:24 Carvedilol Tablet PHA 09/11/24 In Process (Coreg Tablet) 10:00 Date of Service: September 10, 2024 Billing Provider: JIM VEE MD Common Visit Codes: 01269-[id number] INP/OBS CARE (HIGH) Secondary Visit Codes: 02076-[id number] CARE PLAN 30 MINUTES JOE PAGE RESIDENT September 11, 2024 00:41
[2024-09-11] MEDS: CARVEDILOL 12.5 MG TAB PO ONE (03:04)
[2024-09-11] MEDS: PANTOPRAZOLE 40 MG TAB PO ONE (03:05)
[2024-09-11] MEDS: SODIUM CHLOR 0.9% PF (SALINE LOCK) 10ML VIAL/SYR IV SCH (03:06)
[2024-09-11] MEDS: MAGNESIUM SULFATE 1GM/100ML 100 ML IV ONE (04:22)
[2024-09-11] MEDS: ATORVASTATIN 20 MG TAB PO ONE (04:22)
--- NOTE | 2024-09-11 04:33 | DVH ---
Procedure: CT CHEST WITHOUT CONTRAST Reason for study/Clinical History: RULE OUT PNEUMONIA OR MALIGNANCY Comparison Study: None Exam Date: 09/10/2024 11:41 PM TECHNIQUE: Multidetector CT of the chest was performed from the lung apices to the upper abdomen with out the use of intravenous contract. Axial, coronal and sagittal multiplanar reformats were performed . Radiation optimization: All CT scans at this facility use at least one of these dose optimization t echniques: automated exposure control mA and/or kV adjustment per patient size (includes targeted ex ams where dose is matched to clinical indication) or iterative reconstruction. Radiation Dose Information: CT Dose: CTDI volume is 20.9 mGy. Dose-length product is 869.3 mGy*cm The dose indicators for CT are the volume Computed Tomography (CT) Dose Index (CTDIvol) and the Dose Length Product (DLP), and are measured in units of mGy and mGy-cm, respectively. These indicators are not patient dose, but values generated from the CT scanner acquisition factors. The report includes radiation exposure data for exposures received during this examination. FINDINGS: Thyroid gland is enlarged with coarse calcifications and multiple nodules. The heart appears enlarged with coronary artery calcifications. There is a small to moderate pericardial effusion. Small bilate ral pleural effusions, right greater than left. No significant mediastinal or hilar adenopathy. Promi nent 1.1 cm cardiophrenic lymph node. Left pseudo mass along the anterior pleura likely represents lo culated fluid. There is pulmonary vascular congestion without focal consolidation or mass. The airway appears patent. Visualized portions of the upper abdomen demonstrate mildly nodular appearance of the right adrenal g land. There has been prior cholecystectomy. No suspicious osseous lesion. IMPRESSION: 1. No evidence of pulmonary consolidation or mass 2. Small to moderate pericardial effusion and small bilateral pleural effusions with loculated fluid along the left lung creating pseudo mass. 3. Cardiomegaly with severe coronary artery calcifications.
[2024-09-11 05:46] LABS: Basophils # (auto) 0 10 ^3/uL (0-0.2); Basophils % (auto) 0.7 % (0.0-2.0); Eosinophils # (auto) 0.1 10 ^3/uL (0-0.8); Eosinophils % (auto) 2.6 % (0.0-7.0); Hematocrit 37.5 % (36.0-46.0); Hemoglobin 12.2 g/dL (12.2-16.2); Lymphocytes # (auto) 0.6 10 ^3/uL (0.4-5.4); Lymphocytes % (auto) 12.7 % (10.0-50.0); Mean Corpuscular Hemoglobin 30.9 pg (28.0-32.0); Mean Corpuscular Hgb Conc. 32.6 g/dL (32.0-36.0); Mean Corpuscular Volume 94.8 fL (80.0-100.0); Monocytes # (auto) 0.5 10 ^3/uL (0-1.3); Monocytes % (auto) 11.1 % (0.0-12.0); Neutrophils # (auto) 3.3 10 ^3/uL (1.6-8.6); Neutrophils % (auto) 72.9 % (37.0-80.0); Nucleated Red Blood Cells % 0.1 %; Platelet Count (auto) 214 10^3/uL (140-450); Red Blood Cells 3.95 10^6/uL (4.0-5.20); Red Cell Distribution Width 16.6 % (11.8-14.3); White Blood Cell 4.5 10^3/uL (4.4-10.8)
[2024-09-11 06:02] LABS: Alanine Aminotransferase 29 U/L (7-40); Albumin 3.9 g/dL (3.2-4.8); Alkaline Phosphatase 87 U/L (46-116); Anion Gap 8 (5-15); Aspartate Aminotransferase 32 U/L (13-40); BUN/Creatinine Ratio 22.8 (10.0-20.0); Bilirubin, Total 0.3 mg/dL (0.2-1.0); Blood Urea Nitrogen 18 mg/dL (9-23); Calcium 9.2 mg/dL (8.7-10.4); Carbon Dioxide 29 mmol/L (20-31); Chloride 106 mmol/L (98-107); Potassium 3.7 mmol/L (3.5-5.1); Sodium 143 mmol/L (136-145); Total Protein 6.8 g/dL (5.7-8.2)
[2024-09-11 06:05] LABS: Glucose 208 mg/dL (74-106)
[2024-09-11] MEDS: FUROSEMIDE 40 MG/4 ML VIAL IV SCH (06:20)
[2024-09-11] MEDS: PANTOPRAZOLE 40 MG TAB PO SCH (06:21)
[2024-09-11] MEDS: ACCU-CHEK COMFORT CURVE STRIP VI SCH (06:21)
[2024-09-11] MEDS: InsuLIN REG 1unit/0.01ml Soln (100units/ml) SC SCH (06:22)
[2024-09-11 06:28] LABS: Lipase 34 U/L (12-53)
[2024-09-11] MEDS: RIVAROXABAN 20 MG TAB PO SCH (09:28)
[2024-09-11] MEDS: SACUBITRIL-VALSARTAN 24mg/26mg TAB PO SCH (09:29)
[2024-09-11] MEDS: amLODIPine BESYLATE 5 MG TAB PO SCH (09:29)
[2024-09-11] MEDS: EMPAGLIFLOZIN 10 MG TAB PO SCH (09:29)
[2024-09-11] MEDS: CARVEDILOL 12.5 MG TAB PO SCH (09:30)
[2024-09-11] MEDS: AMIODARONE HCL 200 MG TAB PO SCH (09:30)
[2024-09-11] MEDS ORDERED: METOPROLOL TARTRATE 50 MG TAB PO SCH (10:00)
[2024-09-11] MEDS ORDERED: ENOXAPARIN SOD 40 MG/0.4 ML SYRINGE SC SCH (10:00)
[2024-09-11] MEDS ORDERED: AZITHROMYCIN 250 MG TAB PO ONE (12:00)
--- NOTE | 2024-09-11 12:07 | DVHPN2 ---
Reviewed: Care Plan, H&P, Labs, Medications, Previous Orders, Radiology Changes from previous H/P or p: No Changes Objective Vitals Vital Signs Date Time Temp Pulse Resp B/P (MAP) Pulse Ox O2 Delivery O2 Flow Rate FiO2 09/11/24 09:30 79 112/69 09/11/24 09:26 98.3 20 93 98.3 09/11/24 05:35 Room Air* 0 21 Intake/Output Intake and Output 09/11/24 07:00 Intake Total 100 ml Balance 100 ml Intake IV Total 100 ml Medications Current Medications Medications Dose Ordered Sig/Norberto Route Start Time Stop Time Status Last Admin Dose Admin Sodium Chloride 10 ml Q8HR IV 09/10/24 22:00 09/11/24 06:20 10 ML Docusate Sodium 100 mg BIDPRN PRN PO 09/10/24 22:00 Acetaminophen 650 mg Q6HP PRN PO 09/10/24 22:00 Nitroglycerin 0.4 mg Q5MINP PRN SL 09/10/24 22:00 Furosemide 40 mg BIDD IV 09/11/24 06:00 09/11/24 06:20 40 MG Amiodarone HCl 200 mg BID PO 09/11/24 10:00 09/11/24 09:30 200 MG Empaglifozin 10 mg DAILY PO 09/11/24 10:00 09/11/24 09:29 10 MG Rivaroxaban 20 mg DAILY PO 09/11/24 10:00 09/11/24 09:28 20 MG Sacubitril/ Valsartan 2 tab BID PO 09/11/24 10:00 09/11/24 09:29 2 TAB Amlodipine Besylate 5 mg DAILY PO 09/11/24 10:00 09/11/24 09:29 5 MG Pantoprazole Sodium 40 mg DAILY@0600 PO 09/11/24 06:00 09/11/24 06:21 40 MG Diagnostic Test (Pha) 1 strip ACHS 09/11/24 07:00 09/11/24 06:21 1 STRIP Insulin Human Regular ACHS SC 09/11/24 07:00 09/11/24 06:22 4 UNITS Dextrose 50 ml UD PRN IV 09/10/24 22:15 Atorvastatin Calcium 80 mg HS PO 09/11/24 22:00 Carvedilol 12.5 mg Q12HR PO 09/11/24 10:00 09/11/24 09:30 12.5 MG Laboratory Results Laboratory Tests 09/11/24 05:26 Chemistry Test 09/10/24 12:55 09/10/24 15:52 09/11/24 05:26 Calcium Level 9.6 mg/dL (8.7-10.4) 9.2 mg/dL (8.7-10.4) Albumin 4.4 g/dL (3.2-4.8) 3.9 g/dL (3.2-4.8) Magnesium Level 1.9 mg/dL (1.6-2.6) 2.0 mg/dL (1.6-2.6) Total Protein 7.7 g/dL (5.7-8.2) 6.8 g/dL (5.7-8.2) Lipid panel Test 09/11/24 05:26 Lipase 34 U/L (12-53) Cardiac Markers Test 09/10/24 12:55 B-Type Natriuretic Peptide 1597.05 pg/mL (0-100) LFT Test 09/10/24 15:52 09/11/24 05:26 Alanine Aminotransferase (ALT) 29 U/L (7-40) 29 U/L (7-40) Alkaline Phosphatase 91 U/L (46-116) 87 U/L (46-116) Aspartate Amino Transferase (AST) 23 U/L (13-40) 32 U/L (13-40) Direct Bilirubin 0.1 mg/dL (<0.3) Total Bilirubin 0.3 mg/dL (0.2-1.0) 0.3 mg/dL (0.2-1.0) HgA1c, TSH Test 09/10/24 13:48 09/11/24 05:26 Thyroid Stimulating Hormone (TSH) 0.97 uIU/mL (0.55-4.78) Hemoglobin A1c 9.4 % A1C (<5.7) H Urinalysis Test 09/10/24 16:02 Urine Color Light-yellow (Yellow) Urine Clarity Clear (Clear) Urine pH 6.0 (5.0-9.0) Urine Specific [place] 1.026 (1.001-1.035) Urine Protein 1+ (Negative) H Urine Ketones Negative (Negative) Urine Blood Negative /uL (Negative) Urine Nitrite Negative (Negative) Urine Bilirubin Negative (Negative) Urine Urobilinogen 2 mg/dL (Negative) H Urine Leukocyte Esterase Negative /uL (Negative) Urine RBC 2 /hpf (0 - 4) Urine Microscopic WBC 2 /HPF (0-5) Urine Squamous Epithelial Cells None seen /hpf (<5) Urine Bacteria None seen /hpf (None Seen) Urine Glucose 4+ mg/dL (Normal) H Labs and/or images reviewed: Labs reviewed by me, Image(s) reviewed by me Assessment/Plan Assessment/Plan Acute hypoxic respiratory failure likely due to acute on chronic HFrEF Acute on chronic HFrEF: BNP 1540, Consult for Dr. Valdez Bilateral leg edema likely due to acute on chronic HFrEF Atrial fibrillation rate controlled Possible community-acquired pneumonia: Rocephin azithromycin Small to moderate pericardial effusion Small bilateral pleural effusions with loculated fluid along the left lung creating pseudo mass. Cardiomegaly with severe coronary artery calcifications. Hypertension Diabetes mellitus type 2, uncontrolled, HGB A1c 9.4 CAD, [place] recent onset Patient lives with her son Nabil [phone] Time spent 70 minutes Patient is full code Advanced care planning time 20 mts Plan discussed with: Patient Date of Service: September 11, 2024 Billing Provider: LENA PATTERSON MD Common Visit Codes: [id number] CARE 30-74 MIN LENA PATTERSON MD September 11, 2024 12:07
[2024-09-11] MEDS ORDERED: ASPI1TAB20 PO (12:43)
[2024-09-11] MEDS ORDERED: ATOR-47 PO (12:47)
[2024-09-11] MEDS ORDERED: CLOP75TA70 PO (12:47)
[2024-09-11] MEDS ORDERED: FOLITAB22 PO (12:47)
[2024-09-11] MEDS ORDERED: SERT25TA28 PO (12:47)
--- NOTE | 2024-09-11 14:19 | DVHSR ---
APPROVED REPORT EXAM: Two-dimensional and M-mode echocardiogram with Doppler and color Doppler. INDICATION Heart Failure RISK FACTORS Obesity: Height: 5'2, Weight: 178 DIMENSIONS LVDd4.9 (3.8-5.7cm)LA (2D)5.4 (1.9-4.0cm)Aortic Root3.3 (2.0-3.7cm) LVDs3.8 (2.5-4.0cm)LA (MM) (1.9-4.0cm)Aortic Cusp Exc1.5 (1.5-2.0cm) EF (%) 46.0 (55-70%)Rt. Atrium4.9 (1.9-4.0cm)Asc. Aorta cm IVSd1.0 (0.7-1.1cm)RV (D)4.3 (1.8-2.4cm) PWd1.2 (0.7-1.1cm) Mitral Valve MitralMitral Stenosis E wave1.10m/sMV Mean GR.2mmHg A wavem/sMV Peak GR.103mmHg E/A ratio0.02D MVAcm2 DECEL [id number] 1/2 [place] Aortic Valve Aortic ValveAortic Stenosis V10.71m/Blaine Mean GR.3mmHg V21.02m/Blaine Peak GR.4mmHg LVOT Diameter2.1 (1.8-2.4cm)Doppler AVA2.41cm2 Pulmonic Valve V20.76m/s Tricuspid Valve TR Velocity2.72m/s [id number] Conclusion LVEF 25-30% by viual estimate DILATED LV moderate LVH RV dysfunction biatrial enlargement severe MAC, mild mitral stenosis mild mitral regurg trivial to small pericardial effusion noted
[2024-09-11] MEDS: DOXYCYCLINE 100MG/100ML 100 ML IV SCH (14:51)
[2024-09-11] MEDS: cefTRIAXone 1GM/50ML D5W 50 ML IV ONE (14:51)
[2024-09-11] MEDS: ATORVASTATIN 20 MG TAB PO SCH (21:55)
[2024-09-12] VITALS (9 sets, daily range): BP systolic 110–150; BP diastolic 72–94; PULSE 68–101; RESP 17–19; TEMP 96.7–98.3; O2SAT 91–96
[2024-09-12] MEDS: cefTRIAXone 1GM/50ML D5W 50 ML IV SCH (09:06)
[2024-09-12] MEDS ORDERED: AZITHROMYCIN 250 MG TAB PO SCH (10:00)
--- NOTE | 2024-09-12 10:53 | DVHPN2 ---
Reviewed: Care Plan, H&P, Labs, Medications, Previous Orders, Radiology Changes from previous H/P or p: No Changes Objective Vitals Vital Signs Date Time Temp Pulse Resp B/P (MAP) Pulse Ox O2 Delivery O2 Flow Rate FiO2 09/12/24 09:06 99 135/84 09/12/24 09:00 98.3 18 94 98.3 09/12/24 08:00 Room Air* 0 21 Intake/Output Intake and Output 09/12/24 07:00 Intake Total 1900 ml Balance 1900 ml Intake Oral 1700 ml IV Total 200 ml # Voids 4 Medications Current Medications Medications Dose Ordered Sig/Norberto Route Start Time Stop Time Status Last Admin Dose Admin Sodium Chloride 10 ml Q8HR IV 09/10/24 22:00 09/12/24 05:59 10 ML Docusate Sodium 100 mg BIDPRN PRN PO 09/10/24 22:00 Acetaminophen 650 mg Q6HP PRN PO 09/10/24 22:00 Nitroglycerin 0.4 mg Q5MINP PRN SL 09/10/24 22:00 Furosemide 40 mg BIDD IV 09/11/24 06:00 09/12/24 05:58 40 MG Amiodarone HCl 200 mg BID PO 09/11/24 10:00 09/12/24 09:04 200 MG Empaglifozin 10 mg DAILY PO 09/11/24 10:00 09/12/24 09:05 10 MG Rivaroxaban 20 mg DAILY PO 09/11/24 10:00 09/12/24 09:06 20 MG Sacubitril/ Valsartan 2 tab BID PO 09/11/24 10:00 09/12/24 09:04 2 TAB Amlodipine Besylate 5 mg DAILY PO 09/11/24 10:00 09/12/24 09:05 5 MG Pantoprazole Sodium 40 mg DAILY@0600 PO 09/11/24 06:00 09/12/24 05:59 40 MG Diagnostic Test (Pha) 1 strip ACHS 09/11/24 07:00 09/12/24 05:59 1 STRIP Insulin Human Regular ACHS SC 09/11/24 07:00 09/12/24 06:04 2 UNITS Dextrose 50 ml UD PRN IV 09/10/24 22:15 Atorvastatin Calcium 80 mg HS PO 09/11/24 22:00 09/11/24 21:55 80 MG Carvedilol 12.5 mg Q12HR PO 09/11/24 10:00 09/12/24 09:06 12.5 MG Ceftriaxone Sodium 50 ml @ 100 mls/hr DAILY@09 IV 09/12/24 09:00 09/12/24 09:06 100 MLS/HR Doxycycline Hyclate 100 ml @ 50 mls/hr Q12H IV 09/12/24 16:00 Laboratory Results Laboratory Tests 09/11/24 05:26 Urinalysis Test 09/10/24 16:02 Urine Color Light-yellow (Yellow) Urine Clarity Clear (Clear) Urine pH 6.0 (5.0-9.0) Urine Specific [place] 1.026 (1.001-1.035) Urine Protein 1+ (Negative) H Urine Ketones Negative (Negative) Urine Blood Negative /uL (Negative) Urine Nitrite Negative (Negative) Urine Bilirubin Negative (Negative) Urine Urobilinogen 2 mg/dL (Negative) H Urine Leukocyte Esterase Negative /uL (Negative) Urine RBC 2 /hpf (0 - 4) Urine Microscopic WBC 2 /HPF (0-5) Urine Squamous Epithelial Cells None seen /hpf (<5) Urine Bacteria None seen /hpf (None Seen) Urine Glucose 4+ mg/dL (Normal) H Labs and/or images reviewed: Labs reviewed by me, Image(s) reviewed by me Assessment/Plan Assessment/Plan Acute hypoxic respiratory failure likely due to acute on chronic HFrEF Acute on chronic HFrEF: BNP 1540, Consult for Dr. Valdez appreciated, ejection fraction 25 % Bilateral leg edema likely due to acute on chronic HFrEF Atrial fibrillation rate controlled Possible community-acquired pneumonia: Rocephin azithromycin Small to moderate pericardial effusion Small bilateral pleural effusions with loculated fluid along the left lung creating pseudo mass. Cardiomegaly with severe coronary artery calcifications. Hypertension Diabetes mellitus type 2, uncontrolled, HGB A1c 9.4 CAD, [place] recent onset Patient lives with her son Nabil [phone] Time spent 70 minutes Patient is full code Advanced care planning time 20 mts Plan discussed with: Patient My Orders Orders - LENA PATTERSON MD Procedure Category Date Status Time Ceftriaxone 1gm/50ml PHA 09/12/24 In Process D5w (Rocephin) 09:00 Doxycycline PHA 09/12/24 In Process 100mg/100ml 16:00 Date of Service: Sep 12, 2024 Billing Provider: LENA PATTERSON MD Common Visit Codes: [id number] INP/OBS CARE(HIGH) LENA PATTERSON MD Sep 12, 2024 10:53
[2024-09-12] MEDS: DOXYCYCLINE 100MG/100ML 100 ML IV SCH (16:00)
[2024-09-13] VITALS (8 sets, daily range): BP systolic 108–158; BP diastolic 61–128; PULSE 65–111; RESP 16–18; TEMP 96.9–98.4; O2SAT 90–96
[2024-09-13 10:39] LABS: Folate (Folic Acid) 21.33 ng/mL (>5.38)
--- NOTE | 2024-09-13 11:47 | DVHPN2 ---
Reviewed: Care Plan, H&P, Labs, Medications, Previous Orders, Radiology Changes from previous H/P or p: No Changes Objective Vitals Vital Signs Date Time Temp Pulse Resp B/P (MAP) Pulse Ox O2 Delivery O2 Flow Rate FiO2 09/13/24 09:24 65 105/61 09/13/24 08:30 98.1 18 90 98.1 09/12/24 20:00 Room Air* 0 21 Intake/Output Intake and Output 09/13/24 07:00 Intake Total 1960 ml Output Total 90 ml Balance 1870 ml Intake Oral 1800 ml IV Total 160 ml Output Urine Total 90 ml Stool Total 0 ml # Voids 6 Medications Current Medications Medications Dose Ordered Sig/Norberto Route Start Time Stop Time Status Last Admin Dose Admin Sodium Chloride 10 ml Q8HR IV 09/10/24 22:00 09/13/24 06:13 10 ML Docusate Sodium 100 mg BIDPRN PRN PO 09/10/24 22:00 Acetaminophen 650 mg Q6HP PRN PO 09/10/24 22:00 Nitroglycerin 0.4 mg Q5MINP PRN SL 09/10/24 22:00 Furosemide 40 mg BIDD IV 09/11/24 06:00 09/13/24 06:12 40 MG Amiodarone HCl 200 mg BID PO 09/11/24 10:00 09/13/24 09:27 200 MG Empaglifozin 10 mg DAILY PO 09/11/24 10:00 09/13/24 09:27 10 MG Rivaroxaban 20 mg DAILY PO 09/11/24 10:00 09/13/24 09:27 20 MG Sacubitril/ Valsartan 2 tab BID PO 09/11/24 10:00 09/13/24 09:27 2 TAB Amlodipine Besylate 5 mg DAILY PO 09/11/24 10:00 09/12/24 09:05 5 MG Pantoprazole Sodium 40 mg DAILY@0600 PO 09/11/24 06:00 09/13/24 06:12 40 MG Diagnostic Test (Pha) 1 strip ACHS 09/11/24 07:00 09/13/24 06:13 1 STRIP Insulin Human Regular ACHS SC 09/11/24 07:00 09/13/24 06:13 2 UNITS Dextrose 50 ml UD PRN IV 09/10/24 22:15 Atorvastatin Calcium 80 mg HS PO 09/11/24 22:00 09/12/24 22:17 80 MG Carvedilol 12.5 mg Q12HR PO 09/11/24 10:00 09/12/24 22:18 12.5 MG Ceftriaxone Sodium 50 ml @ 100 mls/hr DAILY@09 IV 09/12/24 09:00 09/13/24 09:27 100 MLS/HR Doxycycline Hyclate 100 ml @ 50 mls/hr Q12H IV 09/12/24 16:00 09/13/24 04:04 50 MLS/HR Laboratory Results Laboratory Tests 09/11/24 05:26 Urinalysis Test 09/10/24 16:02 Urine Color Light-yellow (Yellow) Urine Clarity Clear (Clear) Urine pH 6.0 (5.0-9.0) Urine Specific [place] 1.026 (1.001-1.035) Urine Protein 1+ (Negative) H Urine Ketones Negative (Negative) Urine Blood Negative /uL (Negative) Urine Nitrite Negative (Negative) Urine Bilirubin Negative (Negative) Urine Urobilinogen 2 mg/dL (Negative) H Urine Leukocyte Esterase Negative /uL (Negative) Urine RBC 2 /hpf (0 - 4) Urine Microscopic WBC 2 /HPF (0-5) Urine Squamous Epithelial Cells None seen /hpf (<5) Urine Bacteria None seen /hpf (None Seen) Urine Glucose 4+ mg/dL (Normal) H Labs and/or images reviewed: Labs reviewed by me, Image(s) reviewed by me Assessment/Plan Assessment/Plan Acute hypoxic respiratory failure likely due to CHF exacerbation Acute on chronic HFrEF: BNP 1540, Consult for patient's finger waver , ejection fraction 25 % Bilateral leg edema likely due to CHF Cardiomyopathy ejection fraction 25 percent, patient has LifeVest given at [facility] Atrial fibrillation rate controlled Possible community-acquired pneumonia: Rocephin azithromycin Small to moderate pericardial effusion Small bilateral pleural effusions with loculated fluid along the left lung Cardiomegaly with severe coronary artery calcifications. Hypertension Diabetes mellitus type 2, uncontrolled, HGB A1c 9.4 History of DC 08/22/2024 treated at [facility], ? stents Patient lives with her son Nabil [phone] Time spent 70 minutes Son Nabil [phone] and [id number] and caregiver Haley [phone] bedside Medical Records requested from [facility] Plan discussed with: Patient Date of Service: Sep 13, 2024 Billing Provider: LENA PATTERSON MD Common Visit Codes: [id number] CARE 30-74 MIN LENA PATTERSON MD Sep 13, 2024 11:47
--- NOTE | 2024-09-13 15:05 | DVHINCON2 ---
Date of service: Sep 13, 2024 History of Present Illness HPI Patient is a 69-year-old female who presented on September 10, 2024 for chest discomfort. On September 13, 2024, I was called for cardiology consultation. Patient's pain started the day of presentation and improved on the day of presentation. She did have some shortness of breath and orthopnea accompanied by epigastric discomfort also. She also had been experiencing leg swellings. Patient is known to our practice from outside and before. It is of note that in early August 2024, the patient presented to [facility] for chest pain/inferior wall STEMI. At that time, other thermal spray operator (Dr. Baird) performed cardiac catheterization for her. At that point, PCI (balloon angioplasty) of LCX/OM, followed by thrombectomy of the same vessels was performed. During the same procedure, patient had thrombus moving into LAD. At that point, thrombectomy of the LAD was also performed. It is of note that the patient had been noncompliant with her outside medications prior to that visit (including Xarelto for atrial fibrillation) and that presentation could have been secondary to emboli into coronaries. It is of note that in February 2023 during [facility], the patient was found to have left atrial appendage thrombus. Cardiology is involved for cardiac aspects of care. At the day of evaluation, the patient denies any chest discomfort or shortness of breath. Home Meds Active Scripts Amoxicillin Trihydrate (Amoxicillin) 500 Mg Cap, 1 CAP PO TID, #30 CAP Prov:LENA PATTERSON MD 02/18/23 Sacubitril-Valsartan (Entresto 24-26 mg) 1 Tab Tab, 2 TAB PO BID, #180 TAB Prov:LENA PATTERSON MD 02/18/23 Carvedilol (Coreg) 12.5 Mg Tab, 1 TAB PO BID, #180 TAB 1 Refill Prov:LENA PATTERSON MD 02/18/23 Rivaroxaban (XARELTO) 20 Mg Tab, 1 TAB PO DAILY, #90 TAB 3 Refills Prov:LENA PATTERSON MD 02/18/23 Amiodarone Hcl (Amiodarone Hcl) 200 Mg Tab, 1 TAB PO BID, #180 TAB 5 Refills Prov:LENA PATTERSON MD 02/18/23 Reported Medications Sertraline Hcl (Sertraline Hcl) 25 Mg Tab, 1 TAB PO DAILY, #30 TAB 2 Refills 09/11/24 Folic Yuhc-Mkcbosclbo-Qpujtlrx (Folbic) Tab, 1 TAB PO DAILY, #90 TAB 1 Refill 09/11/24 Clopidogrel Bisulfate (CLOPIDOGREL) 75 Mg Tab, 1 TAB PO DAILY, #90 TAB 1 Refill 09/11/24 Atorvastatin Calcium (ATORVASTATIN CALCIUM) 80 Mg Tab, 1 TAB PO DAILY, #30 TAB 5 Refills 09/11/24 Aspirin (Aspir-81) 81 Mg Tab, 1 TAB PO DAILY, #30 TAB 5 Refills 09/11/24 Gabapentin (Gabapentin) 100 Mg Cap, 1 CAP PO DAILY 02/13/23 Hydrochlorothiazide W/Triamter (Dyazide 37.5/25MG) 1 Cap Cp, 1 CAP PO DAILY 02/13/23 Amlodipine Besylate (Amlodipine Besylate) 10 Mg Tab, 0.5 TAB PO DAILY 02/13/23 Metoprolol Tartrate (LOPRESSOR TABLET) 50 Mg Tb, 1 TAB PO DAILY 02/13/23 Methotrexate (Methotrexate Sodium) 2.5 Mg Tab, 2.5 MG PO DAILY 02/13/23 Metformin Hydrochloride (Metformin Hcl) 1,000 Mg Tab, 1 TAB PO BID 02/13/23 Losartan Potassium (Losartan Potassium) 100 Mg Tab, 1 TAB PO DAILY 02/13/23 Glipizide (Glipizide) 10 Mg Tab, 1 TAB PO BID 02/13/23 Dronedarone Hydrochloride (Multaq) 400 Mg Tab, 1 TAB PO BID 02/13/23 Empagliflozin (Jardiance) 10 Mg Tab, 1 TAB PO DAILY 02/13/23 Apixaban Base (ELIQUIS) 5 Mg Tab, 1 TAB PO BID 02/13/23 Past Medical History Others Past medical history includes diabetes mellitus, hypertension, hyperlipidemia, persistent AFib (should be on long-term anticoagulation, Xarelto), neuropathy, morbid obesity, hypothyroidism, nonalcoholic fatty liver disease, old history of ventral hernia, and old history of cholecystectomy//hernia repair and hysterectomy. 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 In February 2023, [facility] had revealed left atrial appendage thrombus. She did have OR/STEMI (inferior wall) on August 21, 2024. Does have history of noncompliance secondary to poor memory (as per daughter). Family History: No pertinent Hx Patient Family History: Patient reports no known family medical history. Smoker: No Hx (Negative) Alocohol: None Lives with: With family Review of Systems Constitutional: No symptom reported Ears, Nose, & Throat: No symptom reported Pulmonary/Respiratory: Dyspnea, Pleuritic Chest Pain, Orthopnea Cardiovascular: Chest Pain All Other Systems Fourteen point review of system was performed. Relevant findings as per above and as per HPI. Otherwise negative. H&P Exam Vital Signs Vital Signs Date Time Temp Pulse Resp B/P (MAP) Pulse Ox O2 Delivery O2 Flow Rate FiO2 09/13/24 12:30 98.4 74 18 136/79 (98) 92 98.4 09/12/24 20:00 Room Air* 0 21 General Appeara: Well developed, Obese Head Exam: Normal inspection Neck Exam: Normal inspection Eye Exam: bilateral eye PERRL Mouth: Normal Inspection Pulmonary/Respiratory: Lungs clear Cardiovascular/Chest: Normal inspection, Systolic murmur, Irregularly irregular Peripheral Pulses: 2+ carotid (R), 2+ carotid (L), 2+ femoral (R), 2+ femoral (L), 2+ dorsalis pedis (R), 2+ dorsalis pedis (L), 2+ Radial (R), 2+ Radial (L) Abdominal Exam: Normal bowel sounds, Soft Neuro/Mental St: Alert, Oriented Appearance: Appropriate appearance Eye contact/ Speech: Cooperative Labs/Xrays Labs Test 09/13/24 11:32 09/11/24 05:26 09/10/24 23:21 09/10/24 16:02 Range/Units POC Glucose 272 H 70-106 mg/dl White Blood Count 4.5 4.4-10.8 10^3/uL Red Blood Count 3.95 L 4.0-5.20 10^6/uL Hemoglobin 12.2 12.2-16.2 g/dL Hematocrit 37.5 36.0-46.0 % Mean Corpuscular Volume 94.8 80.0-100.0 fL Mean Corpuscular Hemoglobin 30.9 28.0-32.0 pg Mean Corpuscular Hemoglobin Concent 32.6 32.0-36.0 g/dL Red Cell Distribution Width 16.6 H 11.8-14.3 % Platelet Count 214 140-450 10^3/uL Mean Platelet Volume 7.3 6.9-10.8 fL Neutrophils (%) (Auto) 72.9 37.0-80.0 % Lymphocytes (%) (Auto) 12.7 10.0-50.0 % Monocytes (%) (Auto) 11.1 0.0-12.0 % Eosinophils (%) (Auto) 2.6 0.0-7.0 % Basophils (%) (Auto) 0.7 0.0-2.0 % Neutrophils # (Auto) 3.3 1.6-8.6 10 ^3/uL Lymphocytes # (Auto) 0.6 0.4-5.4 10 ^3/uL Monocytes # (Auto) 0.5 0-1.3 10 ^3/uL Eosinophils # (Auto) 0.1 0-0.8 10 ^3/uL Basophils # (Auto) 0 0-0.2 10 ^3/uL Nucleated Red Blood Cells 0.1 % Sodium Level 143 136-145 mmol/L Potassium Level 3.7 3.5-5.1 mmol/L Chloride Level 106 98-107 mmol/L Carbon Dioxide Level 29 20-31 mmol/L Anion Gap 8 5-15 Blood Urea Nitrogen 18 9-23 mg/dL Creatinine 0.79 0.550-1.02 mg/dL Glomerular Filtration Rate Calc 80 >90 mL/min BUN/Creatinine Ratio 22.8 H 10.0-20.0 Serum Glucose 208 H 74-106 mg/dL Hemoglobin A1c 9.4 H <5.7 % A1C Calcium Level 9.2 8.7-10.4 mg/dL Magnesium Level 2.0 1.6-2.6 mg/dL Total Bilirubin 0.3 0.2-1.0 mg/dL Aspartate Amino Transferase (AST) 32 13-40 U/L Alanine Aminotransferase (ALT) 29 7-40 U/L Alkaline Phosphatase 87 46-116 U/L Total Protein 6.8 5.7-8.2 g/dL Albumin 3.9 3.2-4.8 g/dL Lipase 34 12-53 U/L Vitamin B12 Level 393 211-911 pg/mL Vitamin D 25-Hydroxy 36.6 30.0-100 ng/mL Folic Acid 21.33 >5.38 ng/mL Influenza Type A Antigen Negative Negative Influenza Type B Antigen Negative Negative SARS-CoV-2 Antigen (Rapid) Negative NEGATIVE Urine Color Light-yellow Yellow Urine Clarity Clear Clear Urine pH 6.0 5.0-9.0 Urine Specific [place] 1.026 1.001-1.035 Urine Protein 1+ H Negative Urine Ketones Negative Negative Urine Blood Negative Negative /uL Urine Nitrite Negative Negative Urine Bilirubin Negative Negative Urine Urobilinogen 2 H Negative mg/dL Urine Leukocyte Esterase Negative Negative /uL Urine RBC 2 0 - 4 /hpf Urine Microscopic WBC 2 0-5 /HPF Urine Squamous Epithelial Cells None seen <5 /hpf Urine Bacteria None seen None Seen /hpf Urine Glucose 4+ H Normal mg/dL Test 09/10/24 15:52 09/10/24 13:48 09/10/24 12:55 Range/Units Direct Bilirubin 0.1 <0.3 mg/dL Troponin I High Sensitivity 19 </=34 ng/L Thyroid Stimulating Hormone (TSH) 0.97 0.55-4.78 uIU/mL B-Type Natriuretic Peptide 1597.05 0-100 pg/mL Assessment/Plan Plan Patient is a 69-year-old female who presented on September 10, 2024 for chest discomfort. On September 13, 2024, I was called for cardiology consultation. Patient's pain started the day of presentation and improved on the day of presentation. She did have some shortness of breath and orthopnea accompanied by epigastric discomfort also. She also had been experiencing leg swellings. Patient is known to our practice from outside and before. It is of note that in early August 2024, the patient presented to [facility] for chest pain/inferior wall STEMI. At that time, other thermal spray operator (Dr. Baird) performed cardiac catheterization for her. At that point, PCI (balloon angioplasty) of LCX/OM, followed by thrombectomy of the same vessels was performed. During the same procedure, patient had thrombus moving into LAD. At that point, thrombectomy of the LAD was also performed. It is of note that the patient had been noncompliant with her outside medications prior to that visit (including Xarelto for atrial fibrillation) and that presentation could have been secondary to emboli into coronaries. It is of note that in February 2023 during [facility], the patient was found to have left atrial appendage thrombus. Cardiology is involved for cardiac aspects of care. At the day of evaluation, the patient denies any chest discomfort or shortness of breath. Not in acute distress. Not using accessory muscles of breathing. Mucosa is pink and wet. No carotid bruit. No goiter. Lungs are clear to auscultation. Cardiac: Irregular, no thrill. S3 gallop is heard. 3+ systolic murmur in the apex is heard. Abdomen is soft. There is no gross mass. There is no hepatomegaly. Extremities reveal 1+ edema bilaterally. Past medical history includes diabetes mellitus, hypertension, hyperlipidemia, persistent AFib (should be on long-term anticoagulation, Xarelto), neuropathy, morbid obesity, hypothyroidism, nonalcoholic fatty liver disease, old history of ventral hernia, and old history of cholecystectomy//hernia repair and hysterectomy. 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 In February 2023, [facility] had revealed left atrial appendage thrombus. She did have OR/STEMI (inferior wall) on August 21, 2024. Does have history of noncompliance secondary to poor memory (as per daughter). Echocardiogram of January 2023 (performed in the office) revealed ejection fraction of 30% Echocardiogram of June 23, 2024 (performed in the office) revealed ejection fraction of 60-65%, mild biatrial enlargement, trace TR/MR Echocardiogram of August 23, 2024 (performed in [facility]) reported ejection fraction of 25-30%, severe left atrial enlargement, moderate right atrial enlargement, [id number] mitral regurgitation, right ventricular systolic pressure 46 mm Hg Cardiac catheterization (status post STEMI) of August 21, 2024 (performed in [facility]): Status post PCI/balloon angioplasty of LCX/OM, followed by thrombectomy of the same vessels. During the same procedure thrombus went inside LAD and thrombectomy of LAD thrombus was also performed. Patient was started on Plavix/Xarelto at that point. Creatinine: 0.79 - 0.79 Potassium: 5.0 - 3.7 TSH: 0.97 Troponin (high sensitive): 20 - 22 - 19 BNP: 1597.05 Chest x-ray reported: 1. New opacity along the left lateral chest wall may be due to scarring, pneumonia, or mass. Recommend follow-up CT scan of the chest for better characterization. 2. Stable right lung base scarring. 3. C ardiomegaly. CT of the chest (no contrast) reported: IMPRESSION: 1. No evidence of pulmonary consolidation or mass 2. Small to moderate pericardial effusion and small bilateral pleural effusions with loculated fluid along the left lung creating pseudo mass. 3. Cardiomegaly with severe coronary artery calcifications. No EKG on arrival was available to review. EKG of September 13, 2024 revealed atrial fibrillation with moderate ventricular response, poor R-wave progression and nonspecific ST-T changes. Tele reveals atrial fibrillation with moderate ventricular response Echocardiogram reported: LVEF 25-30% by viual estimate DILATED LV moderate LVH RV dysfunction biatrial enlargement severe MAC, mild mitral stenosis mild mitral regurg trivial to small pericardial effusion noted Patient is a 69-year-old obese, Marshallese-speaking female who presented with chest discomfort. Acute coronary syndrome/OR was ruled out (negative serial high sensitive troponin). It is of note that the patient does have history of inferior wall STEMI on August 21, 2024. At that point, the patient needed balloon angioplasty/thrombectomy of the vessels (coronaries). It is of note that the patient had been noncompliant with her medications prior to that presentation and was not taking her usual anticoagulation (Xarelto). It is possible that the presentation at that point was secondary to emboli to coronary vessels (likely). Patient is found to have acute systolic heart failure. Previously, EF had impr bisi but then again after the last presentation to [facility], EF has dropped. Patient was on LifeVest/Kestra since her presentation to [facility] in August 2024. Atypical chest pain Epigastric pain Acute on chronic systolic heart failure Ischemic cardiomyopathy Rule out pneumonia (community-acquired) Diabetes mellitus Atrial fibrillation, moderate ventricular response History of noncompliance Cardiac suggestion for management: Managed on telemetry IV diuresis Follow-up electrolytes and kidney function tests and correct abnormalities. Keep potassium above 4 and magnesium above 2 Guideline directed medical therapy for systolic heart failure (on Entresto/carvedilol/Jardiance) Long-term full anticoagulation Continue Xarelto (20 mg daily) Add Plavix/Clopidogrel (75 mg daily) Decrease amiodarone to 200 mg HS Patient/daughter (at bedside) were counseled to be compliant with medication and followups Continuation of LifeVest is suggested (patient has Kestra vest). Evaluation and management of epigastric pain/headache as per primary team Evaluation and management of pneumonia as per primary team Further evaluation and management depends on the above and clinical course Thank you for consultation A total of 75 minutes was spent reviewing the patient record, examining the patient, making a diagnostic and therapeutic plan, discussing this plan with medical personnel, following up on diagnostic studies and following the patient for clinical stability excluding any and all procedures. At least 50% of this time was spent in direct, [id number] contact. Thank you for allowing me to participate in this patient's care. Further recommendations will depend on patient's clinical course. Please do not hesitate to contact me if you have any questions or concerns. This medical document was created using electronic medical record system with [employer] computerized dictation system. Although this document has been carefully reviewed, there may still be some phonetic and typographical errors. These areas are purely typographical due to the imperfection of the software programs, and do not reflect any compromise in the patient's medical care Plan discussed with: Patient, Daughter (at bedside), Other MAXIMINO KIRK MD Sep 13, 2024 15:05
[2024-09-13] MEDS: CLOPIDOGREL BISULFATE 75 MG TAB PO ONE (16:31)
[2024-09-14 05:00] VITALS: BP 155/80; PULSE 71; RESP 16; TEMP 98.1; O2SAT 93
--- NOTE | 2024-09-14 06:56 | DVHPN2 ---
Progress Note - Dictate Date Seen: Sep 14, 2024 Medical Necessity Reason Pt with a Central, PICC or Fol: No vital signs Vital Sign Date Time Temp Pulse Resp B/P (MAP) Pulse Ox O2 Delivery O2 Flow Rate FiO2 09/14/24 05:58 155/80 09/14/24 05:00 98.1 71 16 93 98.1 09/13/24 20:00 Room Air* 0 21 Total Intake and Output 09/13/24 09/13/24 09/14/24 15:00 23:00 07:00 Intake Total 50 ml 650 ml 500 ml Output Total 775 ml Balance 50 ml 650 ml -275 ml medications Current Medications Medications Dose Ordered Sig/Norberto Route Start Time Stop Time Status Last Admin Dose Admin Sodium Chloride 10 ml Q8HR IV 09/10/24 22:00 09/14/24 05:11 10 ML Docusate Sodium 100 mg BIDPRN PRN PO 09/10/24 22:00 Acetaminophen 650 mg Q6HP PRN PO 09/10/24 22:00 Nitroglycerin 0.4 mg Q5MINP PRN SL 09/10/24 22:00 Furosemide 40 mg BIDD IV 09/11/24 06:00 09/14/24 05:58 40 MG Empaglifozin 10 mg DAILY PO 09/11/24 10:00 09/13/24 09:27 10 MG Rivaroxaban 20 mg DAILY PO 09/11/24 10:00 09/13/24 09:27 20 MG Sacubitril/ Valsartan 2 tab BID PO 09/11/24 10:00 09/13/24 21:48 2 TAB Amlodipine Besylate 5 mg DAILY PO 09/11/24 10:00 09/12/24 09:05 5 MG Pantoprazole Sodium 40 mg DAILY@0600 PO 09/11/24 06:00 09/14/24 06:00 40 MG Diagnostic Test (Pha) 1 strip ACHS 09/11/24 07:00 09/14/24 06:01 1 STRIP Insulin Human Regular ACHS SC 09/11/24 07:00 09/14/24 06:08 8 UNITS Dextrose 50 ml UD PRN IV 09/10/24 22:15 Atorvastatin Calcium 80 mg HS PO 09/11/24 22:00 09/13/24 21:49 80 MG Carvedilol 12.5 mg Q12HR PO 09/11/24 10:00 09/13/24 21:49 12.5 MG Ceftriaxone Sodium 50 ml @ 100 mls/hr DAILY@09 IV 09/12/24 09:00 09/13/24 09:27 100 MLS/HR Doxycycline Hyclate 100 ml @ 50 mls/hr Q12H IV 09/12/24 16:00 09/14/24 05:09 50 MLS/HR Amiodarone HCl 200 mg HS PO 09/14/24 22:00 Clopidogrel Bisulfate 75 mg DAILY PO 09/14/24 10:00 laboratory and microbiology Laboratory Tests 09/11/24 05:26 Test 09/11/24 05:26 Range/Units Serum Glucose 208 H 74-106 mg/dL Assessment/Plan Patient is a 69-year-old female who presented on September 10, 2024 for chest discomfort. On September 13, 2024, I was called for cardiology consultation. Patient's pain started the day of presentation and improved on the day of presentation. She did have some shortness of breath and orthopnea accompanied by epigastric discomfort also. She also had been experiencing leg swellings. Patient is known to our practice from outside and before. It is of note that in early August 2024, the patient presented to [facility] for chest pain/inferior wall STEMI. At that time, other chart calculator (Dr. Baird) performed cardiac catheterization for her. At that point, PCI (balloon angioplasty) of LCX/OM, followed by thrombectomy of the same vessels was performed. During the same procedure, patient had thrombus moving into LAD. At that point, thrombectomy of the LAD was also performed. It is of note that the patient had been noncompliant with her outside medications (as per daughter) prior to that visit (including Xarelto for atrial fibrillation) and that presentation could have been secondary to emboli into coronaries. It is of note that in February 2023 during [facility], the patient was found to have left atrial appendage thrombus. Cardiology is involved for cardiac aspects of care. At the day of evaluation, the patient denies any chest discomfort or shortness of breath. Not in acute distress. Not using accessory muscles of breathing. Mucosa is pink and wet. No carotid bruit. No goiter. Lungs are clear to auscultation. Cardiac: Irregular, no thrill. S3 gallop is heard. 3+ systolic murmur in the apex is heard. Abdomen is soft. There is no gross mass. There is no hepatomegaly. Extremities reveal 1+ edema bilaterally. Past medical history includes diabetes mellitus, hypertension, hyperlipidemia, persistent AFib (should be on long-term anticoagulation, Xarelto), neuropathy, morbid obesity, hypothyroidism, nonalcoholic fatty liver disease, old history of ventral hernia, and old history of cholecystectomy//hernia repair and hysterectomy. 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 In February 2023, [facility]IO had revealed left atrial appendage thrombus. She did have NV/STEMI (inferior wall) on August 21, 2024. Does have history of noncompliance secondary to poor memory (as per daughter). Echocardiogram of January 2023 (performed in the office) revealed ejection fraction of 30% Echocardiogram of June 23, 2024 (performed in the office) revealed ejection fraction of 60-65%, mild biatrial enlargement, trace TR/MR Echocardiogram of August 23, 2024 (performed in [facility]) reported ejection fraction of 25-30%, severe left atrial enlargement, moderate right atrial enlargement, [id number] mitral regurgitation, right ventricular systolic pressure 46 mm Hg Cardiac catheterization (status post STEMI) of August 21, 2024 (performed in [facility]): Status post PCI/balloon angioplasty of LCX/OM, followed by thrombectomy of the same vessels. During the same procedure thrombus went inside LAD and thrombectomy of LAD thrombus was also performed. Patient was started on Plavix/Xarelto at that point. Creatinine: 0.79 - 0.79 Potassium: 5.0 - 3.7 TSH: 0.97 Troponin (high sensitive): 20 - 22 - 19 BNP: 1597.05 Chest x-ray reported: 1. New opacity along the left lateral chest wall may be due to scarring, pneumonia, or mass. Recommend follow-up CT scan of the chest for better characterization. 2. Stable right lung base scarring. 3. Cardiomegaly. CT of the chest (no contrast) reported: IMPRESSION: 1. No evidence of pulmonary consolidation or mass 2. Small to moderate pericardial effusion and small bilateral pleural effusions with loculated fluid along the left lung creating pseudo mass. 3. Cardiomegaly with severe coronary artery calcifications. No EKG on arrival was available to review. EKG of September 13, 2024 revealed atrial fibrillation with moderate ventricular response, poor R-wave progression and nonspecific ST-T changes. Tele reveals atrial fibrillation with moderate ventricular response Echocardiogram reported: LVEF 25-30% by viual estimate DILATED LV moderate LVH RV dysfunction biatrial enlargement severe MAC, mild mitral stenosis mild mitral regurg trivial to small pericardial effusion noted Patient is a 69-year-old obese, [place]-speaking female who presented with chest discomfort. Acute coronary syndrome/NV was ruled out (negative serial high sensitive troponin). It is of note that the patient does have history of inferior wall STEMI on August 21, 2024. At that point, the patient needed balloon angioplasty/thrombectomy of the vessels (coronaries). It is of note that the patient had been noncompliant with her medications prior to that presentation and was not taking her usual anticoagulation (Xarelto). It is possible that the presentation at that point was secondary to emboli to coronary vessels (likely). Patient is found to have acute systolic heart failure. Previously, EF had improved but then again after the last presentation to [facility], EF has dropped. Patient was on LifeVest/Kestra since her presentation to [facility] in August 2024. Atypical chest pain Epigastric pain Acute on chronic systolic heart failure Ischemic cardiomyopathy Rule out pneumonia (community-acquired) Diabetes mellitus Atrial fibrillation, moderate ventricular response History of noncompliance Cardiac suggestion for management: Manage on telemetry IV diuresis Follow-up electrolytes and kidney function tests and correct abnormalities. Keep potassium above 4 and magnesium above 2 Guideline directed medical therapy for systolic heart failure (on Entresto/carvedilol/Jardiance) Long-term full anticoagulation Continue Xarelto / Clopidogrel Amiodarone: 200 mg HS Patient/daughter (at bedside) were counseled to be compliant with medication and followups Continuation of LifeVest is suggested (patient has Kestra vest). Evaluation and management of epigastric pain/headache as per primary team Evaluation and management of pneumonia as per primary team Further evaluation and management depends on the above and clinical course A total of 55 minutes was spent reviewing the patient record, examining the patient, making a diagnostic and therapeutic plan, discussing this plan with medical personnel, following up on diagnostic studies and following the patient for clinical stability excluding any and all procedures. At least 50% of this time was spent in direct, [id number] contact. Thank you for allowing me to participate in this patient's care. Further recommendations will depend on patient's clinical course. Please do not hesitate to contact me if you have any questions or concerns. This medical document was created using electronic medical record system with [employer]fish computerized dictation system. Although this document has been carefully reviewed, there may still be some phonetic and typographical errors. These areas are purely typographical due to the imperfection of the software programs, and do not reflect any compromise in the patient's medical care Plan discussed with: Patient, Other (nurse) MAXIMINO KIRK MD Sep 14, 2024 06:56
[2024-09-14 08:00] VITALS: PULSE 112
[2024-09-14 08:54] VITALS: BP 118/70; PULSE 121; RESP 19; TEMP 97.6; O2SAT 93
[2024-09-14] MEDS: CLOPIDOGREL BISULFATE 75 MG TAB PO SCH (09:23)
--- NOTE | 2024-09-14 11:31 | DVHPN2 ---
Reviewed: Care Plan, H&P, Labs, Medications, Previous Orders, Radiology Changes from previous H/P or p: No Changes Objective Vitals Vital Signs Date Time Temp Pulse Resp B/P (MAP) Pulse Ox O2 Delivery O2 Flow Rate FiO2 09/14/24 09:24 118/70 09/14/24 09:23 121 09/14/24 08:54 97.6 19 93 97.6 09/13/24 20:00 Room Air* 0 21 Intake/Output Intake and Output 09/14/24 07:00 Intake Total 1200 ml Output Total 775 ml Balance 425 ml Intake Oral 1150 ml IV Total 50 ml Output Urine Total 775 ml # Voids 2 # Bowel Movements 1 Medications Current Medications Medications Dose Ordered Sig/Norberto Route Start Time Stop Time Status Last Admin Dose Admin Sodium Chloride 10 ml Q8HR IV 09/10/24 22:00 09/14/24 05:11 10 ML Docusate Sodium 100 mg BIDPRN PRN PO 09/10/24 22:00 Acetaminophen 650 mg Q6HP PRN PO 09/10/24 22:00 Nitroglycerin 0.4 mg Q5MINP PRN SL 09/10/24 22:00 Furosemide 40 mg BIDD IV 09/11/24 06:00 09/14/24 05:58 40 MG Empaglifozin 10 mg DAILY PO 09/11/24 10:00 09/14/24 09:22 10 MG Rivaroxaban 20 mg DAILY PO 09/11/24 10:00 09/14/24 09:23 20 MG Sacubitril/ Valsartan 2 tab BID PO 09/11/24 10:00 09/14/24 09:22 2 TAB Amlodipine Besylate 5 mg DAILY PO 09/11/24 10:00 09/14/24 09:24 5 MG Pantoprazole Sodium 40 mg DAILY@0600 PO 09/11/24 06:00 09/14/24 06:00 40 MG Diagnostic Test (Pha) 1 strip ACHS 09/11/24 07:00 09/14/24 11:12 1 STRIP Insulin Human Regular ACHS SC 09/11/24 07:00 09/14/24 06:08 8 UNITS Dextrose 50 ml UD PRN IV 09/10/24 22:15 Atorvastatin Calcium 80 mg HS PO 09/11/24 22:00 09/13/24 21:49 80 MG Carvedilol 12.5 mg Q12HR PO 09/11/24 10:00 09/14/24 09:23 12.5 MG Ceftriaxone Sodium 50 ml @ 100 mls/hr DAILY@09 IV 09/12/24 09:00 09/14/24 09:22 100 MLS/HR Doxycycline Hyclate 100 ml @ 50 mls/hr Q12H IV 09/12/24 16:00 09/14/24 05:09 50 MLS/HR Amiodarone HCl 200 mg HS PO 09/14/24 22:00 Clopidogrel Bisulfate 75 mg DAILY PO 09/14/24 10:00 09/14/24 09:23 75 MG Laboratory Results Laboratory Tests 09/11/24 05:26 Urinalysis Test 09/10/24 16:02 Urine Color Light-yellow (Yellow) Urine Clarity Clear (Clear) Urine pH 6.0 (5.0-9.0) Urine Specific [place] 1.026 (1.001-1.035) Urine Protein 1+ (Negative) H Urine Ketones Negative (Negative) Urine Blood Negative /uL (Negative) Urine Nitrite Negative (Negative) Urine Bilirubin Negative (Negative) Urine Urobilinogen 2 mg/dL (Negative) H Urine Leukocyte Esterase Negative /uL (Negative) Urine RBC 2 /hpf (0 - 4) Urine Microscopic WBC 2 /HPF (0-5) Urine Squamous Epithelial Cells None seen /hpf (<5) Urine Bacteria None seen /hpf (None Seen) Urine Glucose 4+ mg/dL (Normal) H Labs and/or images reviewed: Labs reviewed by me, Image(s) reviewed by me Assessment/Plan Assessment/Plan Acute hypoxic respiratory failure likely due to CHF exacerbation Acute on chronic HFrEF: BNP 1540, Consult for patient's complaint evaluation officer , ejection fraction 25 % Bilateral leg edema likely due to CHF Cardiomyopathy ejection fraction 25 %, patient has LifeVest given at [facility] Atrial fibrillation rate controlled Possible community-acquired pneumonia: Rocephin azithromycin Small to moderate pericardial effusion Small bilateral pleural effusions with loculated fluid along the left lung Cardiomegaly with severe coronary artery calcifications. Hypertension Diabetes mellitus type 2, uncontrolled, HGB A1c 9.4 History of [place] 08/22/2024 with thrombus in the obtuse marginal of circumflex , treated at [facility], stents continue Xarelto and Plavix Patient lives with her son Nabil [phone] Time spent 55 minutes Son Nabil [phone] and [id number] and caregiver Haley [phone] bedside Reviewed medical records from [facility] Plan discussed with: Patient My Orders Orders - LENA PATTERSON MD Procedure Category Date Status Time * Cardiology Consult CONS 09/13/24 Transmitted 11:54 Date of Service: Sep 14, 2024 Billing Provider: LENA PATTERSON MD Common Visit Codes: [id number] INP/OBS CARE(HIGH) LENA PATTERSON MD Sep 14, 2024 11:31
[2024-09-14] MEDS ORDERED: METO1TAB9 PO (11:54)
[2024-09-14] MEDS ORDERED: INSU1INJ19 SC (12:06)
[2024-09-14] MEDS ORDERED: METH2.5T SC (12:06)
[2024-09-14] MEDS ORDERED: LATA0.008 EACHEYE (12:08)
[2024-09-14 12:51] VITALS: BP 144/78; PULSE 95; RESP 19; TEMP 97.6; O2SAT 96
--- NOTE | 2024-09-14 13:50 | DVHDS2 ---
Discharge Summary Date of Admission September 10, 2024 at 21:47 Date of Discharge: Sep 14, 2024 Admitting Diagnosis Shortness of breath Wounds: None Labs/Diagnostic Data: Laboratory Results Test 09/14/24 11:01 09/11/24 05:26 09/10/24 23:21 09/10/24 16:02 POC Glucose 274 mg/dl (70-106) White Blood Count 4.5 10^3/uL (4.4-10.8) Red Blood Count 3.95 10^6/uL (4.0-5.20) Hemoglobin 12.2 g/dL (12.2-16.2) Hematocrit 37.5 % (36.0-46.0) Mean Corpuscular Volume 94.8 fL (80.0-100.0) Mean Corpuscular Hemoglobin 30.9 pg (28.0-32.0) Mean Corpuscular Hemoglobin Concent 32.6 g/dL (32.0-36.0) Red Cell Distribution Width 16.6 % (11.8-14.3) Platelet Count 214 10^3/uL (140-450) Mean Platelet Volume 7.3 fL (6.9-10.8) Neutrophils (%) (Auto) 72.9 % (37.0-80.0) Lymphocytes (%) (Auto) 12.7 % (10.0-50.0) Monocytes (%) (Auto) 11.1 % (0.0-12.0) Eosinophils (%) (Auto) 2.6 % (0.0-7.0) Basophils (%) (Auto) 0.7 % (0.0-2.0) Neutrophils # (Auto) 3.3 10 ^3/uL (1.6-8.6) Lymphocytes # (Auto) 0.6 10 ^3/uL (0.4-5.4) Monocytes # (Auto) 0.5 10 ^3/uL (0-1.3) Eosinophils # (Auto) 0.1 10 ^3/uL (0-0.8) Basophils # (Auto) 0 10 ^3/uL (0-0.2) Nucleated Red Blood Cells 0.1 % Sodium Level 143 mmol/L (136-145) Potassium Level 3.7 mmol/L (3.5-5.1) Chloride Level 106 mmol/L (98-107) Carbon Dioxide Level 29 mmol/L (20-31) Anion Gap 8 (5-15) Blood Urea Nitrogen 18 mg/dL (9-23) Creatinine 0.79 mg/dL (0.550-1.02) Glomerular Filtration Rate Calc 80 mL/min (>90) BUN/Creatinine Ratio 22.8 (10.0-20.0) Serum Glucose 208 mg/dL (74-106) Hemoglobin A1c 9.4 % A1C (<5.7) Calcium Level 9.2 mg/dL (8.7-10.4) Magnesium Level 2.0 mg/dL (1.6-2.6) Total Bilirubin 0.3 mg/dL (0.2-1.0) Aspartate Amino Transferase (AST) 32 U/L (13-40) Alanine Aminotransferase (ALT) 29 U/L (7-40) Alkaline Phosphatase 87 U/L (46-116) Total Protein 6.8 g/dL (5.7-8.2) Albumin 3.9 g/dL (3.2-4.8) Lipase 34 U/L (12-53) Vitamin B12 Level 393 pg/mL (211-911) Vitamin D 25-Hydroxy 36.6 ng/mL (30.0-100) Folic Acid 21.33 ng/mL (>5.38) Influenza Type A Antigen Negative (Negative) Influenza Type B Antigen Negative (Negative) SARS-CoV-2 Antigen (Rapid) Negative (NEGATIVE) Urine Color Light-yellow (Yellow) Urine Clarity Clear (Clear) Urine pH 6.0 (5.0-9.0) Urine Specific [place] 1.026 (1.001-1.035) Urine Protein 1+ (Negative) Urine Ketones Negative (Negative) Urine Blood Negative /uL (Negative) Urine Nitrite Negative (Negative) Urine Bilirubin Negative (Negative) Urine Urobilinogen 2 mg/dL (Negative) Urine Leukocyte Esterase Negative /uL (Negative) Urine RBC 2 /hpf (0 - 4) Urine Microscopic WBC 2 /HPF (0-5) Urine Squamous Epithelial Cells None seen /hpf (<5) Urine Bacteria None seen /hpf (None Seen) Urine Glucose 4+ mg/dL (Normal) Test 09/10/24 15:52 09/10/24 13:48 09/10/24 12:55 Direct Bilirubin 0.1 mg/dL (<0.3) Troponin I High Sensitivity 19 ng/L (</=34) Thyroid Stimulating Hormone (TSH) 0.97 uIU/mL (0.55-4.78) B-Type Natriuretic Peptide 1597.05 pg/mL (0-100) Other Laboratory Tests 09/11/24 05:26 Brief Hx & Hospital Course: 69-year-old female had [place] underwent stenting for the obtuse marginal of circumflex at [facility] on 08/22/2024 went home and brought back by family for shortness of breaths found to be in acute hypoxic respiratory failure due to CHF exacerbation BNP [address] Monet treated with Lasix ejection fraction 25 percent patient also has bilateral lower extremity edema secondary to CHF patient has cardiomyopathy ejection fraction 25 percent patient was having lipase given at [facility] also AFib with the rate controlled with the amiodarone possible community-acquired pneumonia treated with Rocephin azithromycin comorbid conditions hypertension type 2 diabetes treated appropriately A1c 9.4 discharged to long term facility rehab. The plan is acceptable to the son and [id number] at bedside Consults/Reason for consult Cardiology Dr. 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 Hypertension Diabetes mellitus type 2, uncontrolled, HGB A1c 9.4 History of [place] 08/22/2024 with thrombus in the obtuse marginal of circumflex , treated at [facility], stents continue Xarelto and Plavix Discharge Disposition: Detention Facility Discharge Instruct/Medications Diet: Cardiac 2g Na,low cholest Activity: Light activity Follow Up/Referral: [facility] up with [facility] [place] [facility] Medications: see list 39 (Time taken for discharge summary 39 minutes) Discharge Statement: "Patient was advised to return to the ER or call 911 if any headaches, dizziness, shortness of breath, chest pain, abdominal pain, bleeding, fevers, or worsening of medical condition. Patient was counseled about treatment plan, medications, possible side effects, patientverbalized understanding. All questions were answered to the best of my ability. This discharge took greater then 30 minutes in planning, reviewing documentation, counseling the patient, and discussing with other team members." ASSESSMENT ASSESSMENT Hospital Course Improved marginally Assessment Acute hypoxic respiratory failure likely due to CHF exacerbation Acute on chronic HFrEF: BNP 1540, Consult for patient's welding manager , ejection fraction 25 % Bilateral leg edema likely due to CHF Cardiomyopathy ejection fraction 25 %, patient has LifeVest given at [facility] Atrial fibrillation rate controlled Possible community-acquired pneumonia: Rocephin azithromycin Small to moderate pericardial effusion Small bilateral pleural effusions with loculated fluid along the left lung Cardiomegaly with severe coronary artery calcifications. Hypertension Diabetes mellitus type 2, uncontrolled, HGB A1c 9.4 History of [place] 08/22/2024 with thrombus in the obtuse marginal of circumflex , treated at [facility], stents continue Xarelto and Plavix Date of Service: Sep 14, 2024 Billing Provider: LENA PATTERSON MD Common Visit Codes: 82346-HCI/OBS DISCH DAY >30min LENA PATTERSON MD Sep 14, 2024 13:50
[2024-09-14 16:47] VITALS: BP 144/78; PULSE 95; RESP 19; TEMP 97.6; O2SAT 96
[2024-09-14 17:00] VITALS: BP 112/65; PULSE 79; RESP 22; TEMP 97.7; O2SAT 93
[2024-09-14] MEDS ORDERED: AMIODARONE HCL 200 MG TAB PO SCH (22:00)
--- NOTE | 2024-09-15 10:26 | ECG ---
[facility] Test Date: 2024-09-13 Test Time: 14:25:57 Pat Name: ERIC LINDA Department: Room: [facility]3T A Gender: F Development Team Lead: SAM : 1955 Requested By: JOE PAGE Order Number: [id number] Reading MD: Ramana Martins Measurements Intervals [place] Rate: 99 P: 0 [place]: 0 QRS: -54 QRSD: 106 T: 147 QT: 467 QTc: 600 Interpretive Statements Atrial flutter LAD, consider left anterior fascicular block Abnormal R-wave progression, late transition LVH with secondary repolarization abnormality Prolonged QT interval Electronically Signed On 09-15-2024 14:40:22 PDT by Ramana Martins Please click the below link to view image of tracing.
--- NOTE | 2024-09-16 11:06 | ECG ---
[facility] Test Date: 2024-09-13 Test Time: 14:26:42 Pat Name: ERIC LINDA Department: Room: [facility]3T A Gender: F Dump Grader: SAM : 1955 Requested By: MAXIMINO KIRK Order Number: [id number] Reading MD: Ramana Martins Measurements Intervals [place] Rate: 95 P: 0 [place]: 0 QRS: -58 QRSD: 112 T: 160 QT: 410 QTc: 516 Interpretive Statements Atrial fibrillation LAD, consider left anterior fascicular block Abnormal R-wave progression, late transition Nonspecific T abnrm, anterolateral leads Borderline prolonged QT interval Electronically Signed On 09-17-2024 12:38:47 PDT by Ramana Martins Please click the below link to view image of tracing.
== END 2024-09-14 18:30 | DRG 177 ==
LOC: ER 11:30 → OVERFLOW 21:47 → TELE-WESTW 09-11 03:56
PROVIDERS: ADMIT Family Medicine; ATTEND Family Medicine
DX: J15.69 Pneumonia due to other Gram-negative bacteria (principal); I50.23 Acute on chronic systolic (congestive) heart failure; J96.01 Acute respiratory failure with hypoxia; I31.39 Other pericardial effusion (noninflammatory); I48.19 Other persistent atrial fibrillation; I11.0 Hypertensive heart disease with heart failure; J15.9 Unspecified bacterial pneumonia; E11.65 Type 2 diabetes mellitus with hyperglycemia; E78.5 Hyperlipidemia, unspecified; Z20.822 Contact with and (suspected) exposure to COVID-19; I25.10 Atherosclerotic heart disease of native coronary artery without angina pectoris; I34.0 Nonrheumatic mitral (valve) insufficiency; I25.5 Ischemic cardiomyopathy; E66.01 Morbid (severe) obesity due to excess calories; Z79.2 Long term (current) use of antibiotics; Z79.899 Other long term (current) drug therapy; Z79.84 Long term (current) use of oral hypoglycemic drugs; Z79.01 Long term (current) use of anticoagulants; Z90.710 Acquired absence of both cervix and uterus; Z90.49 Acquired absence of other specified parts of digestive tract; Z83.3 Family history of diabetes mellitus; I25.2 Old myocardial infarction; Z79.02 Long term (current) use of antithrombotics/antiplatelets; Z79.82 Long term (current) use of aspirin; Z91.148 Patient's other noncompliance with medication regimen for other reason; Z68.32 Body mass index [BMI] 32.0-32.9, adult; Z98.61 Coronary angioplasty status
CPT/HCPCS: 36415; 71046; 71250; 80048; 80053; 80076; 81001; 82306; 82607; 82746; 82962; 83036; 83690; 83735; 83880; 84443; 84484; 85025; 87426; 87804; 93005; 93306; 96374; 97163; 99291; G0378; J1815

== ENCOUNTER 2024-09-24 10:09 | Emergency (ER) | payer MEDICARE, MEDICAID ==
[~2024-09-24] VITALS: Ht 165.1 cm; Wt 75.3 kg
[~2024-09-24 10:09] MED LIST changes: +ASPI1TAB20 PO; +ATOR-47 PO; +CLOP75TA70 PO; +FOLITAB22 PO; +INSU1INJ19 SC; +LATA0.008 EACHEYE; +METH2.5T SC; +METO1TAB9 PO; +SERT25TA28 PO
--- NOTE | 2024-09-24 10:49 | ECG ---
[facility] Test Date: 2024-09-24 Test Time: 10:44:25 Pat Name: ERIC LINDA Department: ER Room: Gender: F Supervisor Title: SAM : 1955 Requested By: ANGLE KEMP Order Number: [id number] Reading MD: Ramana Martins Measurements Intervals [place] Rate: 93 P: 0 [place]: 0 QRS: -61 QRSD: 113 T: 157 QT: 388 QTc: 483 Interpretive Statements Atrial fibrillation LAD, consider left anterior fascicular block Abnormal R-wave progression, late transition Abnormal T, consider ischemia, lateral leads Electronically Signed On 09-26-2024 16:40:21 PDT by Ramana Martins Please click the below link to view image of tracing.
--- NOTE | 2024-09-24 10:55 | ED.PDOC ---
Musculoskeletal HPI Comments This is a 69 year old female brought in by daughter presenting to the ED with chief complaint of left arm swelling, pain, and bruising s/p fall. Daughter reports that on Friday the patient was going down some steps and missed one, causing her to fall onto her left side, injuring her left arm and face. Daughter relays that the patient's left arm has been swollen, painful, and bruising heavily since onset along with a noted abrasion to her left cheek. Patient is currently on blood thinners for A-Fib. Patient denies any head injury, LOC, dizziness, N/V, numbness, or weakness of extremities. Chief Complaint: Fall Injury Time Seen by MD: 10:50 Primary Care Provider: ? Reviewed Notes: Nurses Notes, Medications, Allergies Allergies: Coded Allergies: NO KNOWN ALLERGIES (Unverified , 08/20/19) Home Meds Active Scripts Amoxicillin Trihydrate (Amoxicillin) 500 Mg Cap, 1 CAP PO TID, #30 CAP Prov:LENA PATTERSON MD 02/18/23 Sacubitril-Valsartan (Entresto 24-26 mg) 1 Tab Tab, 2 TAB PO BID, #180 TAB Prov:LENA PATTERSON MD 02/18/23 Carvedilol (Coreg) 12.5 Mg Tab, 1 TAB PO BID, #180 TAB 1 Refill Prov:LENA PATTERSON MD 02/18/23 Rivaroxaban (XARELTO) 20 Mg Tab, 1 TAB PO DAILY, #90 TAB 3 Refills Prov:LENA PATTERSON MD 02/18/23 Amiodarone Hcl (Amiodarone Hcl) 200 Mg Tab, 1 TAB PO BID, #180 TAB 5 Refills Prov:LENA PATTERSON MD 02/18/23 Reported Medications Latanoprost (LATANOPROST) 0.005 % Ryanne, 1 DROP EACHEYE QPM, #7.5 ML 3 Refills 09/14/24 Methotrexate (Methotrexate) 2.5 Mg Tab, 50 MG SC, MG 09/14/24 Insulin Glargine (Basaglar Kwikpen) 100 Unit/Ml Inj, 100 UNIT SC, INJ 09/14/24 Metoprolol Succinate (Metoprolol Succinate Er) 100 Mg Tab, 1 TAB PO DAILY 09/14/24 Sertraline Hcl (Sertraline Hcl) 25 Mg Tab, 1 TAB PO DAILY, #30 TAB 2 Refills 09/11/24 Folic Xsfu-Esirtmxxej-Jvtgxbkm (Folbic) Tab, 1 TAB PO DAILY, #90 TAB 1 Refill 09/11/24 Clopidogrel Bisulfate (CLOPIDOGREL) 75 Mg Tab, 1 TAB PO DAILY, #90 TAB 1 Refill 09/11/24 Atorvastatin Calcium (ATORVASTATIN CALCIUM) 80 Mg Tab, 1 TAB PO DAILY, #30 TAB 5 Refills 09/11/24 Aspirin (Aspir-81) 81 Mg Tab, 1 TAB PO DAILY, #30 TAB 5 Refills 09/11/24 Gabapentin (Gabapentin) 100 Mg Cap, 1 CAP PO DAILY 02/13/23 Hydrochlorothiazide W/Triamter (Dyazide 37.5/25MG) 1 Cap Cp, 1 CAP PO DAILY 02/13/23 Amlodipine Besylate (Amlodipine Besylate) 10 Mg Tab, 0.5 TAB PO DAILY 02/13/23 Metoprolol Tartrate (LOPRESSOR TABLET) 50 Mg Tb, 1 TAB PO DAILY 02/13/23 Methotrexate (Methotrexate Sodium) 2.5 Mg Tab, 2.5 MG PO DAILY 02/13/23 Metformin Hydrochloride (Metformin Hcl) 1,000 Mg Tab, 1 TAB PO BID 02/13/23 Losartan Potassium (Losartan Potassium) 100 Mg Tab, 1 TAB PO DAILY 02/13/23 Glipizide (Glipizide) 10 Mg Tab, 1 TAB PO BID 02/13/23 Dronedarone Hydrochloride (Multaq) 400 Mg Tab, 1 TAB PO BID 02/13/23 Empagliflozin (Jardiance) 10 Mg Tab, 1 TAB PO DAILY 02/13/23 Apixaban Base (ELIQUIS) 5 Mg Tab, 1 TAB PO BID 02/13/23 Information Source: Patient, Relative (Child) Mode of Arrival: Ambulatory Location: Left Extremity Location: Arm, Other (Face) Timing: Days Prehospital treatment: None Severity: Moderate Able to Move Extremity: Yes Bear Weight: Fully Pain: Moderate Mechanism: Spontaneous Circumstances: Fall Onset of Symptoms: After Trauma Symptoms: Swelling, Pain DVT Risk Factors: CHF Last Tetanus: Unknown Past Medical History PAST MEDICAL HISTORY: AFIB, CHF, DM, High Lipids, HTN, [place] Surgical History: Cholecystectomy, , Hernia Repair, Hysterectomy ELECTRONIC COMPONENT PROCESSOR History: No Pertinent ELECTRONIC COMPONENT PROCESSOR History Family History Family History: Family hx of heart zion Social History Smoker: Non-Smoker Alcohol: Denies ETOH Use Drugs: Denies Drug Use Lives In: Home Constitutional: denies: chills, diaphoresis, fatigue, fever, malaise, sweats, weakness, others EENTM: denies: blurred vision, double vision, ear bleeding, ear discharge, ear drainage, ear pain, ear ringing, eye pain, eye redness, hearing loss, mouth pain, mouth swelling, nasal discharge, nose bleeding, nose congestion, nose pain, photophobia, tearing, throat pain, throat swelling, voice changes, others Respiratory: denies: cough, hemoptysis, orthopnea, SOB at rest, shortness of breath, SOB with excertion, stridor, wheezing, others Cardiovascular: denies: chest pain, dizzy spells, diaphoresis, Dyspnea on exertion, edema, irregular heart beat, left arm pain, lightheadedness, palpitations, PND, syncope, others Gastrointestinal: denies: abdomen distended, abdominal pain, blood streaked bowels, constipated, diarrhea, dysphagia, difficulty swallowing, hematemesis, melena, nausea, poor appetite, poor fluid intake, rectal bleeding, rectal pain, vomiting, others Genitourinary: denies: abnormal vagina bleeding, burning, dyspareunia, dysuria, flank pain, frequency, hematuria, incontinence, pain, , vagina discharge , urgency, others Neurological: denies: dizziness, fainting, headache, left sided numbness, left sided weakness, numbness, paresthesia, pre-existing deficit, right sided numbness, right sided weakness, seizure, speech problems, tingling, tremors, weakness, others Musculoskeletal: reports: others (Left arm pain and swelling); denies: back pain, gout, joint pain, joint swelling, muscle pain, muscle stiffness, neck pain Integumetry: reports: others (Abrasion to face); denies: bruises, change in color, change in hair/nails, dryness, laceration, lesions, lumps, rash, wounds Allergic/Immunocompromised: denies: Difficulty Healing, Frequent Infections, Hives, Itching, others Hematologic/Lymphatic: denies: anemia, blood clots, easy bleeding, easy bruising, swollen glands, others Endocrine: denies: excessive hunger, excessive sweating, excessive thirst, excessive urination, flushing, intolerance to cold, intolerance to heat, unexplained weight gain, unexplained weight loss, others Psychiatric: denies: anxiety, bipolar disorder, depression, hopeless, panic disorder, schizophrenia, sleepless, suicidal, others All Other Systems: Reviewed and Negative Physical Exam General Appearance: No Apparent Distress, Normal HEENT: Normal ENT Inspection, PERRL/EOMI Neck: Full Range of Motion, Non-Tender, Normal, Normal Inspection Respiratory: Chest Non-Tender, Lungs Clear, No Accessory Muscle Use, No Respiratory Distress, Normal Breath Sounds Cardiovascular: No Edema, No JVD, No Murmur, No Gallop, Normal Peripheral Pulses, Regular Rate/Rhythm Breast Exam: Deferred Gastrointestinal: No Organomegaly, Non Tender, No Pulsatile Mass, Normal Bowel Sounds, Soft Genitalia: Deferred Pelvic: Deferred Rectal: Deferred Extremities: No calf tenderness, Normal capillary refill, Normal inspection, Normal range of motion, Non-tender, No pedal edema, Other (Moves all fingers with no limited ROM.) Musculoskeletal : Apperance: Normal Neurologic: Alert, weigher and crusher II-XII nml as Tested, No Motor Deficits, Normal Affect, Normal Mood, No Sensory Deficits Cerebellar Function: Normal Reflexes: Normal Skin: Bruises (Abrasion to left cheek, bruising and swelling to left forearm and wrist.), Dry, Normal Color Lymphatic: No Adenopathy Was a procedure done? Was a procedure done?: No Differential Diagnosis EXT Differential Diagnosis: Fracture, Sprain X-Ray, Labs, Meds, VS Vital Signs Date Time Temp Pulse Resp B/P (MAP) Pulse Ox O2 Delivery O2 Flow Rate FiO2 09/24/24 11:33 98.2 09/24/24 11:25 98.2 92 18 116/82 (93) 97 98.2 09/24/24 11:25 92 18 97 Room Air 09/24/24 10:44 93 09/24/24 10:09 98.3 94 18 127/68 (87) 96 98.3 Lab Test 09/24/24 10:39 Range/Units POC Glucose 222 H 70-106 mg/dl Current Medications Medications (Trade) Dose Ordered Sig/Norberto Route Start Time Stop Time Status Last Admin Acetaminophen (Tylenol Tablet) 650 mg ONCE ONCE PO 09/24/24 11:00 09/24/24 11:01 DC 09/24/24 11:33 Time of 1ST Reevaluation: 11:50 Reevaluation 1ST: Unchanged Patient Education/Counseling: Diagnosis, Treatment Family Education/Counseling: No Family Present Departure 1 Departure Time of Disposition: 12:26 (Patient's workup is benign. Patient likely has worsening bruising and hematoma from follow up blood thinners however no acute fracture. We will discharge patient home with outpatient follow up) Impression: Primary Impression: Fall Qualified Codes: W19.XXXA - Unspecified fall, initial encounter Additional Impression: Hematoma of left upper extremity Disposition: HOME / SELF CARE / HOMELESS Condition: Stable Additional Instructions: Your workup today was benign. You have no fractures on x-ray. For pain you can take the followinam: Ibuprofen 400mg with food Noon: Acetaminophen 1000mg 4pm: Ibuprofen 400mg with food 8pm: Acetaminophen 1000mg You should follow up with your regular doctor within one week to ensure you are doing better. If your symptoms worsen or you have any other concerns then please return to the ER. Discharged With: Storage Battery Charger Critical Care Note Critical Care Time?: No Stability Stability form required: No Heart Score Heart Score: Heart Score Response (Comments) Value History N/A 0 EKG N/A 0 Age N/A 0 Risk Factors N/A 0 Troponin N/A 0 Total 0 I personally scribed for ANGLE KEMP MD ([email or web address]) on 09/24/24 at 10:55. Electronically submitted by Jean Paul Aj ([email or web address]). ANGLE KEMP MD Sep 24, 2024 10:55
--- NOTE | 2024-09-24 11:25 | DVH ---
CT HEAD WITHOUT CONTRAST INDICATION: fall EXAM DATE: 09/24/2024 10:51 AM COMPARISON: None RADIATION DOSE: CTDIvol: 57.23 mGy, DLP: 1012.97 mGy*cm PROCEDURE: CT scans of the head were obtained from the vertex to the skull base. Sagittal and coronal reconstructions were provided. All CT scans at this medical facility are performed using dose modulation techniques as appropriate t o a performed exam including the following: Automated exposure control was utilized; adjustment of th e MA and/or KV according to patient size; and use of iterative reconstruction technique. 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 There is sulcal a nd ventricular prominence. The brainshows normal morphology and esquivel-white matter differentiation, wi thout intracranial hemorrhage, extra-axial fluid collection, mass effect or acute large vessel infarc t. The ventricles are normal in size. The basal cisterns are patent. The skull and visible facial bon es are intact. The paranasal sinuses, mastoid air cells and middle ear cavities are well-aerated. The soft tissues of the scalp are unremarkable. 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
--- NOTE | 2024-09-24 11:32 | DVH ---
EXAM: XY L ELBOW 3 VIEW XRAY HISTORY: fall COMPARISON: None TECHNIQUE: Three views of the left elbow were performed. FINDINGS: No acute fracture or effusion are identified about the left elbow. No significant degenerative change s. There is a tiny triceps insertion enthesophyte on the olecranon process. IMPRESSION: No fracture or significant degenerative changes of the left elbow.
[2024-09-24] MEDS: ACETAMINOPHEN 325 MG TAB PO ONE (11:33)
--- NOTE | 2024-09-24 11:33 | DVH ---
EXAM: XY L WRIST 3+ VIEW XRAY HISTORY: fall COMPARISON: None TECHNIQUE: 3 views of the left wrist were performed. FINDINGS: No acute fracture or dislocation are identified about the left wrist. There may be an old healed frac ture of the base of the 5th metacarpal bone. There is mild osteoarthritis of the DRUJ, triscaphe join t, and 1st CMC joint. There are atherosclerotic calcifications of the radial artery. IMPRESSION: 1. No acute fracture of the left wrist. 2. Osteoarthritis. 3. Atherosclerotic vascular disease.
[2024-09-24 12:30] VITALS: BP 133/73; PULSE 95; RESP 18; TEMP 97.9; O2SAT 95
== END 2024-09-24 12:35 | disposition home or self-care (01) ==
LOC: ER 10:09
DX: S40.022A Contusion of left upper arm, initial encounter (principal); I11.0 Hypertensive heart disease with heart failure; I50.9 Heart failure, unspecified; E11.9 Type 2 diabetes mellitus without complications; I48.91 Unspecified atrial fibrillation; R42 Dizziness and giddiness; Z98.890 Other specified postprocedural states; Z90.49 Acquired absence of other specified parts of digestive tract; Z90.710 Acquired absence of both cervix and uterus; Z79.899 Other long term (current) drug therapy; W10.9XXA Fall (on) (from) unspecified stairs and steps, initial encounter; Y93.89 Activity, other specified; Y92.89 Other specified places as the place of occurrence of the external cause; Y99.8 Other external cause status
CPT/HCPCS: 70450; 73080; 73110; 82947; 82962; 93005

== ENCOUNTER 2024-09-30 22:43 | Inpatient (IN) | payer MEDICARE, MEDICAID ==
[~2024-09-30] VITALS: Ht 157.5 cm; Wt 81.0 kg
[2024-09-30] MEDS: FUROSEMIDE 40 MG/4 ML VIAL IV ONE (23:00)
[2024-09-30 23:03] LABS: Basophils # (auto) 0 10 ^3/uL (0-0.2); Basophils % (auto) 0.5 % (0.0-2.0); Eosinophils # (auto) 0 10 ^3/uL (0-0.8); Eosinophils % (auto) 0.5 % (0.0-7.0); Hematocrit 37.2 % (36.0-46.0); Hemoglobin 12.2 g/dL (12.2-16.2); Lymphocytes # (auto) 1.1 10 ^3/uL (0.4-5.4); Lymphocytes % (auto) 14.8 % (10.0-50.0); Mean Corpuscular Hemoglobin 30.9 pg (28.0-32.0); Mean Corpuscular Hgb Conc. 32.9 g/dL (32.0-36.0); Mean Corpuscular Volume 93.7 fL (80.0-100.0); Monocytes # (auto) 0.6 10 ^3/uL (0-1.3); Monocytes % (auto) 8.5 % (0.0-12.0); Neutrophils # (auto) 5.6 10 ^3/uL (1.6-8.6); Neutrophils % (auto) 75.7 % (37.0-80.0); Nucleated Red Blood Cells % 0.2 %; Platelet Count (auto) 251 10^3/uL (140-450); Red Blood Cells 3.97 10^6/uL (4.0-5.20); Red Cell Distribution Width 16.7 % (11.8-14.3); White Blood Cell 7.5 10^3/uL (4.4-10.8)
--- NOTE | 2024-09-30 23:04 | ED.PDOC ---
HPI Comments 69-year-old female came to your due to chest pains. Patient was discharged your 2 weeks ago, diagnosed with 1. Acute hypoxic respiratory failure likely due to CHF exacerbation, 2. Bilateral leg edema likely due to CHF, 3. Cardiomyopathy ejection fraction 25 %, patient has LifeVest, 4. Atrial fibrillation rate controlled, 5. Possible community-acquired pneumonia, 6. Small to moderate pericardial effusion , 7. Small bilateral pleural effusions with loculated fluid along the left lung , 8. Cardiomegaly with severe coronary artery calcifications., 9. Hypertension, 10. Diabetes mellitus type 2, uncontrolled, 11. 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 Patient was having epigastric pain and nausea has since last night, until few hours ago she started having midsternal chest pains, pressure, constant, associated with shortness a breath. Noted to be saturating 72% on room air upon arrival Chief Complaint: Chest Pain Time Seen by MD: 23:01 Primary Care Provider: ? Reviewed Notes: Nurses Notes Allergies: Coded Allergies: NO KNOWN ALLERGIES (Unverified , 08/20/19) Home Meds Active Scripts Amoxicillin Trihydrate (Amoxicillin) 500 Mg Cap, 1 CAP PO TID, #30 CAP Prov:LENA PATTERSON MD 02/18/23 Sacubitril-Valsartan (Entresto 24-26 mg) 1 Tab Tab, 2 TAB PO BID, #180 TAB Prov:LENA PATTERSON MD 02/18/23 Carvedilol (Coreg) 12.5 Mg Tab, 1 TAB PO BID, #180 TAB 1 Refill Prov:LENA PATTERSON MD 02/18/23 Rivaroxaban (XARELTO) 20 Mg Tab, 1 TAB PO DAILY, #90 TAB 3 Refills Prov:LENA PATTERSON MD 02/18/23 Amiodarone Hcl (Amiodarone Hcl) 200 Mg Tab, 1 TAB PO BID, #180 TAB 5 Refills Prov:LENA PATTERSON MD 02/18/23 Reported Medications Latanoprost (LATANOPROST) 0.005 % Ryanne, 1 DROP EACHEYE QPM, #7.5 ML 3 Refills 09/14/24 Methotrexate (Methotrexate) 2.5 Mg Tab, 50 MG SC, MG 09/14/24 Insulin Glargine (Basaglar Kwikpen) 100 Unit/Ml Inj, 100 UNIT SC, INJ 09/14/24 Metoprolol Succinate (Metoprolol Succinate Er) 100 Mg Tab, 1 TAB PO DAILY 09/14/24 Sertraline Hcl (Sertraline Hcl) 25 Mg Tab, 1 TAB PO DAILY, #30 TAB 2 Refills 09/11/24 Folic Mixg-Ccpdwvgyci-Ymewrtsi (Folbic) Tab, 1 TAB PO DAILY, #90 TAB 1 Refill 09/11/24 Clopidogrel Bisulfate (CLOPIDOGREL) 75 Mg Tab, 1 TAB PO DAILY, #90 TAB 1 Refill 09/11/24 Atorvastatin Calcium (ATORVASTATIN CALCIUM) 80 Mg Tab, 1 TAB PO DAILY, #30 TAB 5 Refills 09/11/24 Aspirin (Aspir-81) 81 Mg Tab, 1 TAB PO DAILY, #30 TAB 5 Refills 09/11/24 Gabapentin (Gabapentin) 100 Mg Cap, 1 CAP PO DAILY 02/13/23 Hydrochlorothiazide W/Triamter (Dyazide 37.5/25MG) 1 Cap Cp, 1 CAP PO DAILY 02/13/23 Amlodipine Besylate (Amlodipine Besylate) 10 Mg Tab, 0.5 TAB PO DAILY 02/13/23 Metoprolol Tartrate (LOPRESSOR TABLET) 50 Mg Tb, 1 TAB PO DAILY 02/13/23 Methotrexate (Methotrexate Sodium) 2.5 Mg Tab, 2.5 MG PO DAILY 02/13/23 Metformin Hydrochloride (Metformin Hcl) 1,000 Mg Tab, 1 TAB PO BID 02/13/23 Losartan Potassium (Losartan Potassium) 100 Mg Tab, 1 TAB PO DAILY 02/13/23 Glipizide (Glipizide) 10 Mg Tab, 1 TAB PO BID 02/13/23 Dronedarone Hydrochloride (Multaq) 400 Mg Tab, 1 TAB PO BID 02/13/23 Empagliflozin (Jardiance) 10 Mg Tab, 1 TAB PO DAILY 02/13/23 Apixaban Base (ELIQUIS) 5 Mg Tab, 1 TAB PO BID 02/13/23 Information Source: Patient, Relative Mode of Arrival: Ambulatory Severity: Moderate Timing: Hours Duration: Since onset Location: Substernal Radiation: No Radiation Quality: Pressure Onset: At Rest, With Light Exertion Cardiac Risk Factors: HTN, Diabetes History of: Similar pain in past Associated Signs and Symptoms: SOB, N/V Review of Systems REVIEW OF SYSTEMS: No fever, no chills, or fatigue HEENT: No sore throat, no earache, no congestion, no neck pain. Cardiac: (+) chest pain. No palpitations. Lungs: (+) shortness of breath, no cough. GI: (+) nausea, no vomiting, no diarrhea, no constipation, (+) abdominal pain : No dysuria, frequency, or urgency. No hematuria. Musculoskeletal: No joint pain , no joint swelling, no extremity edema. Skin: No rash, no itching. Neuro: No headache, no dizziness, no weakness Vital Signs Vital Signs Date Time Temp Pulse Resp B/P (MAP) Pulse Ox O2 Delivery O2 Flow Rate FiO2 10/01/24 00:00 69 09/30/24 23:18 Facial BiPAP Mask 35 09/30/24 23:00 158/80 09/30/24 22:49 97.9 27 74 97.9 Physical Exam General: Awake, alert and oriented. No acute distress. Skin: Skin in warm, dry and intact. Appropriate color for ethnicity. Nailbeds pink with no cyanosis. HEENT: The head is normocephalic and atraumatic. Conjunctivae are clear without exudates or hemorrhage. Sclera is non-icteric. EOM are intact. No signs of nystagmus. Eyelids are normal in appearance without swelling or lesions. Oral mucosa is pink and moist Cardiac: Heart rate and rhythm are normal. No murmurs, gallops, or rubs are auscultated. Respiratory: Patient is tachypneic in mild respiratory distress. There are rales at the bilateral bases. Abdominal: Abdomen is soft, non-tender without distention. Bowel sounds are present and normoactive in all four quadrants. Extremities: Bilateral lower extremity edema Neurological: The patient is awake, alert and oriented to person, place, and time with normal speech. Speech is clear. There is no facial asymmetry. Psychiatric: Appropriate mood and affect. Good judgement and insight. No visual or auditory hallucinations. Past Medical History PAST MEDICAL HISTORY: AFIB, CAD, CHF, DM, High Lipids, HTN, [place] Surgical History: Cholecystectomy, , Hernia Repair, Hysterectomy, PTCA MORNING NANNY History: No Pertinent MORNING NANNY History Family History Family History: Family hx of heart zion Social History Smoker: Non-Smoker Alcohol: Denies ETOH Use Drugs: Denies Drug Use Lives In: Home EKG EKG : Pulse Rate (adult): 82 Cardiac Rhythm: NSR ST: Inf, Infarct Comments Prolonged MO interval, left posterior fascicular block Was a procedure done? Was a procedure done?: No CP Differential Dx Differential Diagnosis: A-fib, Angina, Anxiety / Panic Attack, Electrolyte Disorder Differential Diagnosis: Angina, Chest Wall Pain, Costochondritis, Esophageal reflux/spasm, Gastritis, Pneumonia, Other X-Ray, Labs, Meds, VS Vital Signs Date Time Temp Pulse Resp B/P (MAP) Pulse Ox O2 Delivery O2 Flow Rate FiO2 10/01/24 00:00 69 09/30/24 23:51 71 09/30/24 23:18 74 Facial BiPAP Mask 35 09/30/24 23:07 82 09/30/24 23:04 82 09/30/24 23:00 158/80 09/30/24 22:49 97.9 78 27 157/72 (100) 74 97.9 Lab Test 10/01/24 00:35 09/30/24 23:42 09/30/24 22:47 Range/Units Blood Gas Specimen Type Arterial Blood Gas Sample Site Right radial Blood Gas Patient Temperature 37.0 Arterial Blood Date Drawn [id number] Arterial Blood pH 7.441 7.350-7.450 Arterial Blood Partial Pressure CO2 33.8 32.0-45.0 mmHg Arterial Blood Partial Pressure O2 79.9 L 83.0-108.0 mmHg Arterial Blood HCO3 22.5 21.0-28.0 mmol/L Arterial Blood Oxygen Saturation 95.9 94.0-98.0 % Arterial Blood Base Excess -1.1 -2.0-3.0 mmol/L Arterial Blood Oxyhemoglobin 93.9 L 94.0-98.0 % Arterial Blood Carboxyhemoglobin 1.8 H 0.5-1.5 % Arterial Blood Methemoglobin 0.3 0.0-1.5 % Donell Test Modified Blood Gas Total Hemoglobin 12.20 12.0-16.0 g/dL Blood Gas Set Respiration Rate 12.0 Blood Gas Modality Mask - bipap Blood Gas Spontaneous Rate 26 FiO2 % 35.0 Blood Gas EPAP 5 Blood Gas IPAP 12 Blood Gas Comments Troponin I High Sensitivity 31 31 </=34 ng/L White Blood Count 7.5 4.4-10.8 10^3/uL Red Blood Count 3.97 L 4.0-5.20 10^6/uL Hemoglobin 12.2 12.2-16.2 g/dL Hematocrit 37.2 36.0-46.0 % Mean Corpuscular Volume 93.7 80.0-100.0 fL Mean Corpuscular Hemoglobin 30.9 28.0-32.0 pg Mean Corpuscular Hemoglobin Concent 32.9 32.0-36.0 g/dL Red Cell Distribution Width 16.7 H 11.8-14.3 % Platelet Count 251 140-450 10^3/uL Mean Platelet Volume 7.1 6.9-10.8 fL Neutrophils (%) (Auto) 75.7 37.0-80.0 % Lymphocytes (%) (Auto) 14.8 10.0-50.0 % Monocytes (%) (Auto) 8.5 0.0-12.0 % Eosinophils (%) (Auto) 0.5 0.0-7.0 % Basophils (%) (Auto) 0.5 0.0-2.0 % Neutrophils # (Auto) 5.6 1.6-8.6 10 ^3/uL Lymphocytes # (Auto) 1.1 0.4-5.4 10 ^3/uL Monocytes # (Auto) 0.6 0-1.3 10 ^3/uL Eosinophils # (Auto) 0 0-0.8 10 ^3/uL Basophils # (Auto) 0 0-0.2 10 ^3/uL Nucleated Red Blood Cells 0.2 % Sodium Level 141 136-145 mmol/L Potassium Level 3.8 3.5-5.1 mmol/L Chloride Level 104 98-107 mmol/L Carbon Dioxide Level 25 20-31 mmol/L Anion Gap 12 5-15 Blood Urea Nitrogen 19 9-23 mg/dL Creatinine 0.70 0.550-1.02 mg/dL Glomerular Filtration Rate Calc 93 >90 mL/min BUN/Creatinine Ratio 27.1 H 10.0-20.0 Serum Glucose 168 H 74-106 mg/dL Calcium Level 9.5 8.7-10.4 mg/dL B-Type Natriuretic Peptide 1724.36 0-100 pg/mL Current Medications Medications (Trade) Dose Ordered Sig/Norberto Route Start Time Stop Time Status Last Admin Furosemide (Lasix Injection) 60 mg ONCE ONCE IV 09/30/24 23:00 09/30/24 23:01 DC 09/30/24 23:00 CHEST RADIOGRAPH Indication: cp Technique: Single frontal view of the chest was obtained Comparison: XY CHEST PORTABLE on DOS: 12/09/23, XY CHEST PORTABLE on DOS: 02/13/23, CHEST XRAY 1 VIEW on DOS: 08/20/19 FINDINGS/IMPRESSION: There is enlargement of the cardiomediastinal silhouette. There are diffusely increased interstitial markings, likely at least partially referable to pulmonary vascular congestion. No definite pleural effusion or pneumothorax. No acute osseous abnormality. Time of 1ST Reevaluation: 23:02 Reevaluation 1ST: Unchanged Patient Education/Counseling: Prognosis Family Education/Counseling: Prognosis SEPSIS Sepsis Screen Physician Orders Electrocardigram (09/30/24 22:48) Electrocardigram (09/30/24 23:48) Electrocardigram (10/01/24 01:48) Vital Signs Q1HR (09/30/24 22:48) Chest Xray 1 View (09/30/24 22:48) Saline Lock (09/30/24 22:48) Quail Farmer (09/30/24 ) Abg W/ Co-Ox (10/01/24 00:20) BIPAP (09/30/24 23:57) Vital Signs Date Time Temp Pulse Resp B/P (MAP) Pulse Ox O2 Delivery O2 Flow Rate FiO2 10/01/24 00:00 69 09/30/24 23:51 71 09/30/24 23:18 74 Facial BiPAP Mask 35 09/30/24 23:07 82 09/30/24 23:04 82 09/30/24 23:00 158/80 09/30/24 22:49 97.9 78 27 157/72 (100) 74 97.9 Laboratory Tests Test 09/30/24 22:47 White Blood Count 7.5 10^3/uL (4.4-10.8) Medications Medications Dose Ordered Sig/Norberto Route Start Time Stop Time Status Last Admin Dose Admin Furosemide 60 mg ONCE ONCE IV 09/30/24 23:00 09/30/24 23:01 DC 09/30/24 23:00 Departure 1 Departure Time of Disposition: 00:10 Impression: Primary Impression: CHF exacerbation Additional Impression: Hypoxic respiratory failure Disposition: 09 ADMITTED INPATIENT Condition: Stable Comments 69-year-old female who presents with respiratory distress and CHF exacerbation. Patient's history of CHF with LifeVest in most recent ejection fraction 25% Patient was placed on BiPAP slowly after arrival to the emergency department. Her respiratory status improved. IV Lasix administered in the ED. Patient admitted to hospitalist service for further treatment, evaluation and monitoring. Extensive evaluation was performed in attempt to identify or rule out: (See differential diagnosis section) The following tests were ordered, and results were reviewed by me and discussed with patient: (See diagnostic results section) The following test were independently interpreted by me: EKG I reviewed and agreed with the following test results read by other providers: N/A I reviewed the following notes from the pt's past medical encounters: Encounter August 2024 Additional information was gathered from interviewing the following independent historians: Patient's daughter at bedside Discussion of management or test interpretation with external physician/other qualified health health care specialist: N/A Addressed an acute or chronic illness that poses a threat to life or bodily function: CHF exacerbation, hypoxia, hypoxic respiratory failure Decision regarding hospitalization or escalation of hospital level of care: Risk and benefits of admission for further treatment of patient's condition was considered. Due to patient's current clinical condition, high risk of decline and poor outcome if discharged and need for further inpatient management and monitoring, patient will be admitted to the hospital. Discussed with patient. Drug therapy requiring intensive monitoring for toxicity: IV furosemide Parenteral controlled substances: N/A Decision regarding elective major surgery with identified patient or procedure risk factors: N/A Decision regarding emergency major surgery: N/A Decision not to resuscitate or to de-escalate care because of poor prognosis: N/A Diagnosis or treatment significantly limited by social determinants of health: N/A Critical Care Note Critical Care Time?: Yes (35 min-critical care time only) Critical care comment: Due to a high probability of clinically significant, life threatening deterioration, the patient required my highest level of preparedness to intervene emergently and I personally spent this critical care time directly and personally managing the patient. This critical care time included obtaining a history; examining the patient; pulse oximetry; ordering and review of studies; arranging urgent treatment with development of a management plan; evaluation of patient's response to treatment; frequent reassessment; and, discussions with other providers. This critical care time was performed to assess and manage the high probability of imminent, life-threatening deterioration that could result in multi-organ failure. It was exclusive of separately billable procedures and treating other patients and teaching time. Please see my other sections and the rest of the note for further information on patient assessment and treatment. Stability Stability form required: No Heart Score Heart Score: Heart Score Response (Comments) Value History Moderate Suspicious 1 EKG Repolarization Disturb 1 Age >65 2 Risk Factors >3 or Hx ASHD 2 Troponin Normal limit 0 Total 6 I personally scribed for PASCUAL PINEDO MD ([email or web address]) on 09/30/24 at 23:04. Electronically submitted by Dash Ramirez ([email or web address]). I personally scribed for PASCUAL PINEDO MD ([email or web address]) on 10/01/24 at 01:24. Electronically submitted by Dash Ramirez ([employer]). PASCUAL PINEDO MD Sep 30, 2024 23:04
[2024-09-30 23:18] LABS: Chloride 104 mmol/L (98-107); Potassium 3.8 mmol/L (3.5-5.1); Sodium 141 mmol/L (136-145)
[2024-09-30 23:19] LABS: Anion Gap 12 (5-15); Carbon Dioxide 25 mmol/L (20-31)
[2024-09-30 23:20] LABS: Calcium 9.5 mg/dL (8.7-10.4)
[2024-09-30 23:25] LABS: BUN/Creatinine Ratio 27.1 (10.0-20.0); Blood Urea Nitrogen 19 mg/dL (9-23)
[2024-09-30 23:26] LABS: Glucose 168 mg/dL (74-106)
[2024-09-30 23:55] VITALS: PULSE 69; RESP 20; O2SAT 94
--- NOTE | 2024-10-01 00:28 | DVH ---
CHEST RADIOGRAPH Indication: cp Technique: Single frontal view of the chest was obtained Comparison: XY CHEST PORTABLE on DOS: 12/09/23, XY CHEST PORTABLE on DOS: 02/13/23, CHEST XRAY 1 VIEW o n DOS: 08/20/19 FINDINGS/IMPRESSION: There is enlargement of the cardiomediastinal silhouette. There are diffusely in creased interstitial markings, likely at least partially referable to pulmonary vascular congestion. No definite pleural effusion or pneumothorax. No acute osseous abnormality.
[2024-10-01 00:46] LABS: Base Excess -1.1 mmol/L (-2.0-3.0)
[2024-10-01] MEDS ORDERED: NITROGLYCERIN 0.4 MG SL TAB SL PRN (01:15)
[2024-10-01] MEDS ORDERED: ONDANSETRON HCL 4 MG/2 ML VIAL IV PRN (01:15)
[2024-10-01] MEDS ORDERED: HYDROcodone-ACET 5/325MG TAB PO PRN (01:15)
[2024-10-01] MEDS ORDERED: cloNIDine HCL 0.1 MG TAB PO PRN (01:15)
[2024-10-01] MEDS ORDERED: DOCUSATE SOD 100 MG CAP PO PRN (01:15)
[2024-10-01] MEDS ORDERED: MORPHINE SULFATE INJ 2 MG/ml SYRG IV PRN (01:15)
[2024-10-01] MEDS ORDERED: DEXTROSE (50%) 50ML SYRG IV PRN (01:15)
--- NOTE | 2024-10-01 01:18 | DVHHP2 ---
History of Present Illness Reason for Visit: Acute exacerbation of congestive heart failure History of Present Illness The patient is a 69-year-old female with past medical history of AFib, Coronary artery disease, CHF, DM, hyperlipidemia, [place], thrombus in the obtuse marginal of circumflex, treated at [facility], stents inserted, and hypertension who presented to [facility] with complaint of chest pain. Patient reports symptoms progressively get worse with midsternal chest pain, pressure- like, constant, epigastric abdominal pain, nausea, associated with shortness of breaths, desaturating on room at 72%, and was placed on oxygen 2 L/min via nasal cannula and O2 sat improved to 96%. Patient was seen and evaluated in the ED, laboratory data shows WBC 7.5, platelets 251, sodium 141, potassium 3.8, BUN 19, creatinine 0.70, GFR 93, glucose 168, calcium 9.5, troponin 31, BNP 1724.36, blood pressure 152/72, heart rate 82, temperature 97.9 F, O2 saturation 97% on oxygen. Patient was started on IV Lasix, please see medication orders section in the computer. On my assessment, patient denied chest pain, no headache, no dizziness, no diaphoresis, currently on oxygen, no nausea, no vomiting, no fever, no chills. Patient was admitted for further evaluation and medical management. Past Medical History AFIB, CAD, CHF, DM, High Lipids, HTN, [place] Past Surgical History Cholecystectomy, , Hernia Repair, Hysterectomy, PTCA Family History Reviewed, noncontributory to the management of this case. Past Social History The patient lives at home, denies smoking, alcohol or illicit drugs abuse. Review of Systems Constitutional: Yes: Weakness; No: Fever, Chills, Sweats, Malaise, Other Eyes: No: Pain, Vision change, Conjunctivae inflammation, Eyelid inflammation, Other, Redness ENT: No: Ear pain, Ear discharge, Nose pain, Nose discharge, Nose congestion, Mouth pain, Mouth swelling, Throat pain, Throat swelling, Other Respiratory: Shortness of breath, Other (SOB at rest); No: Cough, Dry, SOB with excertion, Wheezing, Hemoptysis, Pleuritic Pain, Sputum, Wheezing Cardiovascular: No: Chest Pain, Palpitations, Orthopnea, Paroxysmal Noc. Dyspnea, Edema, Lt Headedness, Other Gastrointestinal: No: Nausea, Vomiting, Abdominal Pain, Diarrhea, Constipation, Melena, Hematochezia, Other Genitourinary: No Dysuria, No Frequency, No Incontinence, No Hematuria, No Retention, No Other Musculoskeletal: No: other, neck pain, shoulder pain, arm pain, back pain, hand pain, leg pain, foot pain Skin: No: Rash, Lesions, Jaundice, Bruising, Other Neurological: No: Weakness, Numbness, Incoordination, Change in speech, Confusion, Seizures, Other Allergies: Coded Allergies: NO KNOWN ALLERGIES (Unverified , 08/20/19) Exam Vital Signs Vital Signs Date Time Temp Pulse Resp B/P (MAP) Pulse Ox O2 Delivery O2 Flow Rate FiO2 10/01/24 00:00 69 09/30/24 23:18 Facial BiPAP Mask 35 09/30/24 23:00 158/80 09/30/24 22:49 97.9 27 74 97.9 General Appearance: Alert, Oriented X3, Cooperative, No acute distress HEENT: Atraumatic, PERRLA, EOMI, Mucous membr. moist/pink Respiratory: Normal air movement Cardiovascular: Regular rate, Normal S1, Normal S2, No murmurs Abdominal: Normal bowel sounds, Soft, No tenderness, No hepatospenomegaly, No masses Extremities: No clubbing, No cyanosis, No edema, Normal pulses, No tenderness/swelling Skin: No rashes, No breakdown, No significant lesion Neuro: Normal speech, Normal tone, Sensation intact, Cranial nerves 3-12 NL, Reflexes 2+, Other (Generalized weakness) Psych/Mental Status: Mental status NL, Mood NL Labs/Xrays Labs Test 10/01/24 00:35 09/30/24 23:42 09/30/24 22:47 Range/Units Blood Gas Specimen Type Arterial Blood Gas Sample Site Right radial Blood Gas Patient Temperature 37.0 Arterial Blood Date Drawn [id number] Arterial Blood pH 7.441 7.350-7.450 Arterial Blood Partial Pressure CO2 33.8 32.0-45.0 mmHg Arterial Blood Partial Pressure O2 79.9 L 83.0-108.0 mmHg Arterial Blood HCO3 22.5 21.0-28.0 mmol/L Arterial Blood Oxygen Saturation 95.9 94.0-98.0 % Arterial Blood Base Excess -1.1 -2.0-3.0 mmol/L Arterial Blood Oxyhemoglobin 93.9 L 94.0-98.0 % Arterial Blood Carboxyhemoglobin 1.8 H 0.5-1.5 % Arterial Blood Methemoglobin 0.3 0.0-1.5 % Donell Test Modified Blood Gas Total Hemoglobin 12.20 12.0-16.0 g/dL Blood Gas Set Respiration Rate 12.0 Blood Gas Modality Mask - bipap Blood Gas Spontaneous Rate 26 FiO2 % 35.0 Blood Gas EPAP 5 Blood Gas IPAP 12 Blood Gas Comments Troponin I High Sensitivity 31 </=34 ng/L White Blood Count 7.5 4.4-10.8 10^3/uL Red Blood Count 3.97 L 4.0-5.20 10^6/uL Hemoglobin 12.2 12.2-16.2 g/dL Hematocrit 37.2 36.0-46.0 % Mean Corpuscular Volume 93.7 80.0-100.0 fL Mean Corpuscular Hemoglobin 30.9 28.0-32.0 pg Mean Corpuscular Hemoglobin Concent 32.9 32.0-36.0 g/dL Red Cell Distribution Width 16.7 H 11.8-14.3 % Platelet Count 251 140-450 10^3/uL Mean Platelet Volume 7.1 6.9-10.8 fL Neutrophils (%) (Auto) 75.7 37.0-80.0 % Lymphocytes (%) (Auto) 14.8 10.0-50.0 % Monocytes (%) (Auto) 8.5 0.0-12.0 % Eosinophils (%) (Auto) 0.5 0.0-7.0 % Basophils (%) (Auto) 0.5 0.0-2.0 % Neutrophils # (Auto) 5.6 1.6-8.6 10 ^3/uL Lymphocytes # (Auto) 1.1 0.4-5.4 10 ^3/uL Monocytes # (Auto) 0.6 0-1.3 10 ^3/uL Eosinophils # (Auto) 0 0-0.8 10 ^3/uL Basophils # (Auto) 0 0-0.2 10 ^3/uL Nucleated Red Blood Cells 0.2 % Sodium Level 141 136-145 mmol/L Potassium Level 3.8 3.5-5.1 mmol/L Chloride Level 104 98-107 mmol/L Carbon Dioxide Level 25 20-31 mmol/L Anion Gap 12 5-15 Blood Urea Nitrogen 19 9-23 mg/dL Creatinine 0.70 0.550-1.02 mg/dL Glomerular Filtration Rate Calc 93 >90 mL/min BUN/Creatinine Ratio 27.1 H 10.0-20.0 Serum Glucose 168 H 74-106 mg/dL Calcium Level 9.5 8.7-10.4 mg/dL B-Type Natriuretic Peptide 1724.36 0-100 pg/mL PATIENT: MAC LINDAAACCT: [id number] UNIT: [id number] : 1955 LOC: ER ROOM / BED: / AGE / SEX: 69 / F ADM STATUS: REG ER SERVICE 47 ORDERING PHYSICIAN: PASCUAL PINEDO MD PROCEDURE(s): CXR1 - CHEST XRAY 1 VIEW REASON: cp ORDER NUMBER(s): [id number], ACCESSION NUMBER(s): [id number] CHEST RADIOGRAPH Indication: cp Technique: Single frontal view of the chest was obtained Comparison: XY CHEST PORTABLE on DOS: 12/09/23, XY CHEST PORTABLE on DOS: 02/13/23, CHEST XRAY 1 VIEW on DOS: 08/20/19 FINDINGS/IMPRESSION: There is enlargement of the cardiomediastinal silhouette. There are diffusely increased interstitial markings, likely at least partially referable to pulmonary vascular congestion. No definite pleural effusion or pneumothorax. No acute osseous abnormality. Assessment/Plan Assessment/Plan Acute exacerbation of congestive heart failure Generalized weakness Pulmonary vascular congestion Acute hypoxic respiratory failure Plan 1. Admit to telemetry unit 2. Breathing treatment 3. Pain control management 4. Management of fluids and electrolytes 5. Consultation for hospitalist 6. Diagnostic tests chest x-ray 7. DVT prophylaxis on SCDs 8. Repeat labs CBC, CMP in a.m. 9. Continue with current medical management 10. Treatment plan discussed with patient and RN. Patient verbalized understanding. Plan discussed with: Patient, Other (RN) My Orders Orders - ROHAN CHARLES DNP Procedure Category Date Status Time Consistent DIET 10/01/24 Verified Carb(Ccho)Diabetes Breakfast Complete Blood Count LAB 10/01/24 Verified 04:00 Comprehensive LAB 10/01/24 Verified Metabolic Panel 04:00 Aspirin Tablet PHA 10/01/24 Verified 10:00 Furosemide Injection PHA 10/01/24 Verified (Lasix Injection) 10:00 Atorvastatin (Lipitor) PHA 10/01/24 Verified 22:00 Amlodipine Tablet PHA 10/01/24 Verified (Norvasc Tablet) 10:00 Metoprolol Tartrate PHA 10/01/24 Verified Tablet (Lopressor Ta 10:00 Clonidine Hcl Tablet PHA 10/01/24 Verified (Catapres Tablet) 01:15 Apixaban (Eliquis) PHA 10/01/24 Verified 10:00 Glucose Blood PHA 10/01/24 Verified (Accu-Chek Comfort 07:00 Bedtime Insulin Scale PHA 10/01/24 Verified 22:00 Moderate Insulin Ss PHA 10/01/24 Verified 07:00 Dextrose 50% Syringe PHA 10/01/24 Verified 01:15 Problem List: (1) Acute exacerbation of congestive heart failure (2) Generalized weakness (3) Pulmonary vascular congestion (4) Acute hypoxic respiratory failure Date of Service: Oct 01, 2024 Billing Provider: ROHAN CHARLES DNP Common Visit Codes: [id number] INP/OBS CARE (HIGH) ROHAN CHARLES DNP Oct 01, 2024 01:18
[2024-10-01] MEDS: SODIUM CHLOR 0.9% PF (SALINE LOCK) 10ML VIAL/SYR IV SCH (06:00)
[2024-10-01 06:04] LABS: Urine Bacteria None Seen /hpf (None Seen)
[2024-10-01 06:10] LABS: Basophils # (auto) 0 10 ^3/uL (0-0.2); Basophils % (auto) 0.5 % (0.0-2.0); Eosinophils # (auto) 0 10 ^3/uL (0-0.8); Eosinophils % (auto) 0.3 % (0.0-7.0); Hematocrit 35.5 % (36.0-46.0); Hemoglobin 11.8 g/dL (12.2-16.2); Lymphocytes % (auto) 15.2 % (10.0-50.0); Mean Corpuscular Hemoglobin 30.6 pg (28.0-32.0); Mean Corpuscular Hgb Conc. 33.3 g/dL (32.0-36.0); Monocytes # (auto) 0.5 10 ^3/uL (0-1.3); Neutrophils # (auto) 4.8 10 ^3/uL (1.6-8.6); Nucleated Red Blood Cells % 0.1 %; Platelet Count (auto) 246 10^3/uL (140-450); Red Blood Cells 3.86 10^6/uL (4.0-5.20); Red Cell Distribution Width 16.6 % (11.8-14.3); White Blood Cell 6.3 10^3/uL (4.4-10.8)
[2024-10-01 06:19] LABS: Urine Blood 2+ /uL (Negative); Urine Clarity Clear (Clear); Urine Color Light-Yellow (Yellow); Urine Protein, UAD TRACE (Negative); Urine Specific Gravity 1.011 (1.001-1.035); Urine Squamous Epithelial Cell None Seen /hpf (<5); Urine Urobilinogen Normal (Negative); Urine WBC 1 /HPF (0-5)
[2024-10-01 06:21] LABS: Alanine Aminotransferase 27 U/L (7-40); Albumin 4.3 g/dL (3.2-4.8); Alkaline Phosphatase 80 U/L (46-116); Anion Gap 13 (5-15); Aspartate Aminotransferase 17 U/L (<34); BUN/Creatinine Ratio 23.3 (10.0-20.0); Blood Urea Nitrogen 14 mg/dL (9-23); Calcium 9.2 mg/dL (8.7-10.4); Carbon Dioxide 27 mmol/L (20-31); Chloride 102 mmol/L (98-107); Sodium 142 mmol/L (136-145); Total Protein 7.5 g/dL (5.7-8.2)
[2024-10-01 06:25] LABS: Glucose 126 mg/dL (74-106)
[2024-10-01] MEDS: InsuLIN REG 1unit/0.01ml Soln (100units/ml) SC SCH ×2 (07:00→22:09)
[2024-10-01] MEDS: ACCU-CHEK COMFORT CURVE STRIP VI SCH (07:14)
[2024-10-01 08:00] VITALS: PULSE 58; RESP 13; O2SAT 97
[2024-10-01 10:30] VITALS: PULSE 65; RESP 20; O2SAT 98
[2024-10-01] MEDS: FUROSEMIDE 40 MG/4 ML VIAL IV SCH (10:34)
[2024-10-01] MEDS: ASPirin 81 mg TAB PO SCH (10:34)
[2024-10-01] MEDS: APIXABAN 5 MG TAB PO SCH (10:35)
[2024-10-01] MEDS: METOPROLOL TARTRATE 50 MG TAB PO SCH (10:35)
[2024-10-01] MEDS: amLODIPine BESYLATE 5 MG TAB PO SCH (10:35)
[2024-10-01] MEDS: POTASSIUM CHL 20 Meq TABLET PO ONE (11:13)
--- NOTE | 2024-10-01 13:46 | DVHPN2 ---
Reviewed: Care Plan, H&P, Labs, Medications, Previous Orders, Radiology Changes from previous H/P or p: No Changes Eyes: No Pain, No Vision change, No Conjunctivae inflammation, No Eyelid inflammation, No Other, No Redness ENT: No Ear pain, No Ear discharge, No Nose pain, No Nose discharge, No Nose congestion, No Mouth pain, No Mouth swelling, No Throat pain, No Throat swelling, No Other Cardiovascular: No Chest Pain, No Palpitations, No Orthopnea, No Paroxysmal Noc. Dyspnea, No Edema, No Lt Headedness, No Other Respiratory: No Cough, No Dry; Shortness of breath; No SOB with excertion, No Wheezing, No Hemoptysis, No Pleuritic Pain, No Sputum; Other (SOB at rest) Gastrointestinal: No Nausea, No Vomiting, No Abdominal Pain, No Diarrhea, No Constipation, No Melena, No Hematochezia, No Other Genitourinary: No Dysuria, No Frequency, No Incontinence, No Hematuria, No Retention, No Other Musculoskeletal: No other, No neck pain, No shoulder pain, No arm pain, No back pain, No hand pain, No leg pain, No foot pain Skin: No Rash, No Lesions, No Jaundice, No Bruising, No Other Objective Vitals Vital Signs Date Time Temp Pulse Resp B/P (MAP) Pulse Ox O2 Delivery O2 Flow Rate FiO2 10/01/24 12:00 98.8 53 17 131/68 (89) 97 98.8 10/01/24 10:30 4.0 10/01/24 08:00 Nasal Cannula* 36 Intake/Output Intake and Output 10/01/24 07:00 Intake Total 0 ml Output Total 2500 ml Balance -2500 ml Intake Oral 0 ml Output Urine Total 2500 ml Medications Current Medications Medications Dose Ordered Sig/Norberto Route Start Time Stop Time Status Last Admin Dose Admin Aspirin 81 mg DAILY PO 10/01/24 10:00 10/01/24 10:34 81 MG Furosemide 40 mg DAILY IV 10/01/24 10:00 10/01/24 10:34 40 MG Atorvastatin Calcium 40 mg HS PO 10/01/24 22:00 Amlodipine Besylate 5 mg DAILY PO 10/01/24 10:00 10/01/24 10:35 5 MG Metoprolol Tartrate 50 mg BID PO 10/01/24 10:00 Clonidine HCl 0.1 mg Q4HP PRN PO 10/01/24 01:15 Apixaban 5 mg BID PO 10/01/24 10:00 10/01/24 10:35 5 MG Diagnostic Test (Pha) 1 strip ACHS 10/01/24 07:00 10/01/24 11:30 1 STRIP Insulin Human Regular HS SC 10/01/24 22:00 Insulin Human Regular AC SC 10/01/24 07:00 10/01/24 13:02 3 UNITS Dextrose 50 ml UD PRN IV 10/01/24 01:15 Sodium Chloride 10 ml Q8HR IV 10/01/24 06:00 10/01/24 06:00 10 ML Acetaminophen/ Hydrocodone Bitart 1 tab Q4HP PRN PO 10/01/24 01:15 Ondansetron HCl 4 mg Q4HP PRN IV 10/01/24 01:15 Docusate Sodium 100 mg BIDPRN PRN PO 10/01/24 01:15 Acetaminophen 650 mg Q6HP PRN PO 10/01/24 01:15 Nitroglycerin 0.4 mg Q5MINP PRN SL 10/01/24 01:15 Morphine Sulfate 2 mg Q30M PRN IV 10/01/24 01:15 Laboratory Results Laboratory Tests 10/01/24 05:38 10/01/24 07:47 Chemistry Test 09/30/24 22:47 10/01/24 05:38 Calcium Level 9.5 mg/dL (8.7-10.4) 9.2 mg/dL (8.7-10.4) Albumin 4.3 g/dL (3.2-4.8) Total Protein 7.5 g/dL (5.7-8.2) Cardiac Markers Test 09/30/24 22:47 B-Type Natriuretic Peptide 1724.36 pg/mL (0-100) LFT Test 10/01/24 05:38 Alanine Aminotransferase (ALT) 27 U/L (7-40) Alkaline Phosphatase 80 U/L (46-116) Aspartate Amino Transferase (AST) 17 U/L (<34) Total Bilirubin 1.0 mg/dL (0.2-1.0) Urinalysis Test 10/01/24 05:26 Urine Color Light-yellow (Yellow) Urine Clarity Clear (Clear) Urine pH 5.0 (5.0-9.0) Urine Specific [place] 1.011 (1.001-1.035) Urine Protein Trace (Negative) H Urine Ketones Negative (Negative) Urine Blood 2+ /uL (Negative) H Urine Nitrite Negative (Negative) Urine Bilirubin Negative (Negative) Urine Urobilinogen Normal mg/dL (Negative) Urine Leukocyte Esterase Negative /uL (Negative) Urine RBC 17 /hpf (0 - 4) Urine Microscopic WBC 1 /HPF (0-5) Urine Squamous Epithelial Cells None seen /hpf (<5) Urine Bacteria None seen /hpf (None Seen) Urine Glucose 4+ mg/dL (Normal) H Blood Gas Results Test 10/01/24 00:35 Arterial Blood pH 7.441 (7.350-7.450) FiO2 % 35.0 Labs and/or images reviewed: Labs reviewed by me, Image(s) reviewed by me Assessment/Plan Assessment/Plan Chest pain normal troponin: Treatment per ACS protocol, consult for Dr. Baird Acute exacerbation of congestive heart failure BNP 1724: Lasix Atrial fibrillation History of coronary artery disease status post stents in [facility] Diabetes Hypertension Hypercholesterolemia History of [place] Acute hypokalemia potassium 3.0: Replace potassium Time spent 70 minutes Advanced care planning 20 minutes Patient is full code Plan discussed with: Patient My Orders Orders - LENA PATTERSON MD Procedure Category Date Status Time * Cardiology Consult CONS 10/01/24 Verified 13:42 Date of Service: Oct 01, 2024 Billing Provider: LENA PATTERSON MD Common Visit Codes: [id number] CARE 30-74 MIN LENA PATTERSON MD Oct 01, 2024 13:46
[2024-10-01 18:20] VITALS: O2SAT 94; O2SAT 98
--- NOTE | 2024-10-01 19:15 | ECG ---
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
--- NOTE | 2024-10-01 19:16 | ECG ---
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
[2024-10-01] MEDS: ACETAMINOPHEN 325 MG TAB PO PRN (21:48)
[2024-10-01] MEDS: ATORVASTATIN 20 MG TAB PO SCH (21:57)
[2024-10-01 22:35] VITALS: BP 139/88; PULSE 53; RESP 17; TEMP 97.6; O2SAT 99
[2024-10-02] VITALS (10 sets, daily range): BP systolic 112–150; BP diastolic 65–88; PULSE 49–77; RESP 16–19; TEMP 97.5–98.5; O2SAT 95–100
[2024-10-02 06:33] LABS: Basophils # (auto) 0 10 ^3/uL (0-0.2); Basophils % (auto) 0.7 % (0.0-2.0); Eosinophils # (auto) 0.1 10 ^3/uL (0-0.8); Eosinophils % (auto) 3.4 % (0.0-7.0); Hematocrit 38.9 % (36.0-46.0); Hemoglobin 12.8 g/dL (12.2-16.2); Lymphocytes # (auto) 0.7 10 ^3/uL (0.4-5.4); Lymphocytes % (auto) 17.4 % (10.0-50.0); Mean Corpuscular Hemoglobin 30.5 pg (28.0-32.0); Mean Corpuscular Volume 92.5 fL (80.0-100.0); Monocytes # (auto) 0.4 10 ^3/uL (0-1.3); Monocytes % (auto) 9.1 % (0.0-12.0); Neutrophils % (auto) 69.4 % (37.0-80.0); Nucleated Red Blood Cells % 0.1 %; Platelet Count (auto) 248 10^3/uL (140-450); Red Blood Cells 4.21 10^6/uL (4.0-5.20); Red Cell Distribution Width 16.5 % (11.8-14.3); White Blood Cell 4.3 10^3/uL (4.4-10.8)
[2024-10-02 06:49] LABS: Alanine Aminotransferase 26 U/L (7-40); Albumin 4.3 g/dL (3.2-4.8); Alkaline Phosphatase 77 U/L (46-116); Anion Gap 10 (5-15); Aspartate Aminotransferase 22 U/L (<34); BUN/Creatinine Ratio 32.8 (10.0-20.0); Bilirubin, Total 0.9 mg/dL (0.2-1.0); Blood Urea Nitrogen 21 mg/dL (9-23); Carbon Dioxide 30 mmol/L (20-31); Chloride 103 mmol/L (98-107); Potassium 3.9 mmol/L (3.5-5.1); Sodium 143 mmol/L (136-145); Total Protein 7.6 g/dL (5.7-8.2)
[2024-10-02 06:56] LABS: Glucose 130 mg/dL (74-106)
--- NOTE | 2024-10-02 08:29 | DVHPN2 ---
Reviewed: Care Plan, H&P, Labs, Medications, Previous Orders, Radiology Changes from previous H/P or p: No Changes Eyes: No Pain, No Vision change, No Conjunctivae inflammation, No Eyelid inflammation, No Other, No Redness ENT: No Ear pain, No Ear discharge, No Nose pain, No Nose discharge, No Nose congestion, No Mouth pain, No Mouth swelling, No Throat pain, No Throat swelling, No Other Cardiovascular: No Chest Pain, No Palpitations, No Orthopnea, No Paroxysmal Noc. Dyspnea, No Edema, No Lt Headedness, No Other Respiratory: No Cough, No Dry; Shortness of breath; No SOB with excertion, No Wheezing, No Hemoptysis, No Pleuritic Pain, No Sputum; Other (SOB at rest) Gastrointestinal: No Nausea, No Vomiting, No Abdominal Pain, No Diarrhea, No Constipation, No Melena, No Hematochezia, No Other Genitourinary: No Dysuria, No Frequency, No Incontinence, No Hematuria, No Retention, No Other Musculoskeletal: No other, No neck pain, No shoulder pain, No arm pain, No back pain, No hand pain, No leg pain, No foot pain Skin: No Rash, No Lesions, No Jaundice, No Bruising, No Other Objective Vitals Vital Signs Date Time Temp Pulse Resp B/P (MAP) Pulse Ox O2 Delivery O2 Flow Rate FiO2 10/02/24 05:00 97.7 52 16 143/65 (91) 95 97.7 10/02/24 00:04 Nasal Cannula* 4 36 Intake/Output Intake and Output 10/02/24 07:00 Intake Total 240 ml Output Total 2550 ml Balance -2310 ml Intake Oral 240 ml Output Urine Total 2550 ml Medications Current Medications Medications Dose Ordered Sig/Norberto Route Start Time Stop Time Status Last Admin Dose Admin Furosemide 40 mg DAILY IV 10/01/24 10:00 10/01/24 10:34 40 MG Atorvastatin Calcium 40 mg HS PO 10/01/24 22:00 10/01/24 21:57 40 MG Amlodipine Besylate 5 mg DAILY PO 10/01/24 10:00 10/01/24 10:35 5 MG Clonidine HCl 0.1 mg Q4HP PRN PO 10/01/24 01:15 Apixaban 5 mg BID PO 10/01/24 10:00 10/01/24 21:56 5 MG Diagnostic Test (Pha) 1 strip ACHS 10/01/24 07:00 10/02/24 06:23 1 STRIP Insulin Human Regular HS SC 10/01/24 22:00 10/01/24 22:09 4 UNITS Insulin Human Regular AC SC 10/01/24 07:00 10/02/24 06:24 2 UNITS Dextrose 50 ml UD PRN IV 10/01/24 01:15 Sodium Chloride 10 ml Q8HR IV 10/01/24 06:00 10/02/24 06:25 10 ML Acetaminophen/ Hydrocodone Bitart 1 tab Q4HP PRN PO 10/01/24 01:15 Ondansetron HCl 4 mg Q4HP PRN IV 10/01/24 01:15 Docusate Sodium 100 mg BIDPRN PRN PO 10/01/24 01:15 Acetaminophen 650 mg Q6HP PRN PO 10/01/24 01:15 10/01/24 21:48 650 MG Nitroglycerin 0.4 mg Q5MINP PRN SL 10/01/24 01:15 Morphine Sulfate 2 mg Q30M PRN IV 10/01/24 01:15 Sacubitril/ Valsartan 1 tab BID PO 10/02/24 10:00 UNV Amiodarone HCl 200 mg HS PO 10/02/24 22:00 UNV Carvedilol 3.125 mg Q12HR PO 10/02/24 10:00 UNV Empaglifozin 10 mg DAILY PO 10/02/24 10:00 UNV Laboratory Results Laboratory Tests 10/02/24 06:01 Chemistry Test 10/02/24 06:01 Albumin 4.3 g/dL (3.2-4.8) Calcium Level 10.0 mg/dL (8.7-10.4) Total Protein 7.6 g/dL (5.7-8.2) Cardiac Markers Test 10/02/24 06:01 B-Type Natriuretic Peptide Pending LFT Test 10/02/24 06:01 Alanine Aminotransferase (ALT) 26 U/L (7-40) Alkaline Phosphatase 77 U/L (46-116) Aspartate Amino Transferase (AST) 22 U/L (<34) Total Bilirubin 0.9 mg/dL (0.2-1.0) Urinalysis Test 10/01/24 05:26 Urine Color Light-yellow (Yellow) Urine Clarity Clear (Clear) Urine pH 5.0 (5.0-9.0) Urine Specific [place] 1.011 (1.001-1.035) Urine Protein Trace (Negative) H Urine Ketones Negative (Negative) Urine Blood 2+ /uL (Negative) H Urine Nitrite Negative (Negative) Urine Bilirubin Negative (Negative) Urine Urobilinogen Normal mg/dL (Negative) Urine Leukocyte Esterase Negative /uL (Negative) Urine RBC 17 /hpf (0 - 4) Urine Microscopic WBC 1 /HPF (0-5) Urine Squamous Epithelial Cells None seen /hpf (<5) Urine Bacteria None seen /hpf (None Seen) Urine Glucose 4+ mg/dL (Normal) H Labs and/or images reviewed: Labs reviewed by me, Image(s) reviewed by me Assessment/Plan Assessment/Plan Chest pain normal troponin: Treatment per ACS protocol, consult for Dr. Bowling Acute exacerbation of congestive heart failure BNP 1724: Lasix, Jardiance, Coreg, amiodarone, Entresto, metolazone, ejection fraction 30 % on 09/11/2024 Atrial fibrillation: Eliquis History of coronary artery disease status post stents in [facility] Diabetes Hypertension: Amlodipine Hypercholesterolemia: Lipitor History of [place] Acute hypokalemia potassium 3.0: Replace potassium Time spent 66 minutes Son Nabil [id number] Haley Patient is full code KYLE Velasquez at bedside Plan discussed with: Patient My Orders Orders - LENA PATTERSON MD Procedure Category Date Status Time Rapid Influenza A&B LAB 10/02/24 Logged 08:14 Covid19 Antigen [facility] LAB 10/02/24 Logged Date of Service: Oct 02, 2024 Billing Provider: LENA PATTERSON MD Common Visit Codes: [id number] CARE 30-74 MIN LENA PATTERSON MD Oct 02, 2024 08:29
--- NOTE | 2024-10-02 10:22 | DVH ---
EXAM: XR Chest, 1 View CLINICAL INDICATION: chf TECHNIQUE: Frontal view of the chest. COMPARISON: XY CHEST XRAY 1 VIEW on DOS: 09/30/24, XY CHEST PORTABLE on DOS: 12/09/23, XY CHEST MERISSA BLE on DOS: 02/13/23, CHEST XRAY 1 VIEW on DOS: 08/20/19 FINDINGS: LUNGS AND PLEURAL SPACES: See below. HEART: Cardiomegaly with mild congestion. MEDIASTINUM: Unremarkable. Normal mediastinal contour. BONES/JOINTS: Unremarkable. No acute fracture. OTHER FINDINGS: . IMPRESSION: Cardiomegaly with mild congestion.
[2024-10-02] MEDS: SACUBITRIL-VALSARTAN 24mg/26mg TAB PO SCH (10:41)
[2024-10-02] MEDS: EMPAGLIFLOZIN 10 MG TAB PO SCH (10:41)
[2024-10-02] MEDS: CARVEDILOL 3.125 MG TAB PO SCH (10:42)
[2024-10-02] MEDS: metOLazone 5 MG TAB PO ONE (11:20)
--- NOTE | 2024-10-02 12:57 | DVHINCON2 ---
Date of service: Oct 02, 2024 Referring Physician JOSE ANGEL Smallwood Reason for Consultation Acute on Chronic Heart Failure History of Present Illness This is a 69-year old female known outside to our practice who initially presented 09/30/2024 with reported chest versus epigastric discomfort (later resolved) with associated shortness of breath. Upon ED arrival initial 12-lead electrocardiogram had revealed sinus rhythm at 82 bpm, first degree AV block, with no evidence for acute ischemic changes. Serial HS troponin trend was found to be 31, 31, 26. Initial BNP level was found markedly elevated at 1724 which subsequent chest imaging had revealed cardiomegaly with evidence for pulmonary vascular congestion which she was initiated on IV diuretic therapy. Subsequent BNP level after 3 days of IV diuresis had improved to 601 with repeat chest imaging revealing cardiomegaly with mild congestion. Of note, patient was previously admitted to this facility with similar symptomatology which she was evaluated by cardiology services and later discharged 09/14/2024 in stable condition. Echocardiogram 09/11/2024 at that time had revealed an LVEF of 25-30% which had not changed from prior Echocardiogram findings 08/23/2024 (EF of 25- 30%). It is of note that in early August of 2024, the patient presented to [facility] for chest pain/inferior wall STEMI. At that time, other employment law attorney (Dr. Baird) performed cardiac catheterization for her. At that point, PCI (balloon angioplasty) of LCX/OM, followed by thrombectomy of the same vessels was performed. During the same procedure, patient had thrombus moving into LAD. At that point, thrombectomy of the LAD was also performed. It is of note that the patient had been non-compliant with her outside medications (as per daughter) prior to that visit (including Xarelto for atrial fibrillation) and that presentation could have been secondary to emboli into coronaries. It is of note that in February 2023 during MARCIO, the patient was found to have left atrial appendage thrombus. Recognizing current clinical presentation, presentati on itself again questions possible non-adherence to prescribed out-patient medications including but not limited to diuretic therapy. Of note, cardiology services were involved by primary team request late within the admission for cardiac aspects of care. Past Medical History Past medical history includes diabetes mellitus, hypertension, hyperlipidemia, persistent AFib (should be on long-term anticoagulation, Xarelto), neuropathy, morbid obesity, hypothyroidism, nonalcoholic fatty liver disease, old history of ventral hernia, and old history of cholecystectomy//hernia repair and hysterectomy. 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 In February 2023, MARCIO had revealed left atrial appendage thrombus. She did have WV/STEMI (inferior wall) on August 21, 2024. Does have history of noncompliance secondary to poor memory (as per daughter). Echocardiogram of January 2023 (performed in the office) revealed ejection fraction of 30% Echocardiogram of June 23, 2024 (performed in the office) revealed ejection fraction of 60-65%, mild biatrial enlargement, trace TR/MR Echocardiogram of August 23, 2024 (performed in [facility]) reported ejection fraction of 25-30%, severe left atrial enlargement, moderate right atrial enlargement, [id number] mitral regurgitation, right ventricular systolic pressure 46 mm Hg Echocardiogram of September 11, 2024 (performed in [facility]) reported ejection fraction of 25-30%, dilated LV, moderate LVH, RV dysfunction, biatrial enlargement, severe MAC, mild mitral stenosis, mild mitral regurgitation, trivial to small pericardial effusion, right ventricular systolic pressure 51mmHg Cardiac catheterization (status post STEMI) of August 21, 2024 (performed in [facility]): Status post PCI/balloon angioplasty of LCX/OM, followed by thrombectomy of the same vessels. During the same procedure thrombus went inside LAD and thrombectomy of LAD thrombus was also performed. Patient was started on Plavix/Xarelto at that point. Past Surgical History Reviewed Family History: Patient reports no known family medical history. Allergies: Coded Allergies: NO KNOWN ALLERGIES (Unverified , 08/20/19) Home Meds Active Scripts Amoxicillin Trihydrate (Amoxicillin) 500 Mg Cap, 1 CAP PO TID, #30 CAP Prov:LENA PATTERSON MD 02/18/23 Sacubitril-Valsartan (Entresto 24-26 mg) 1 Tab Tab, 2 TAB PO BID, #180 TAB Prov:LENA PATTERSON MD 02/18/23 Carvedilol (Coreg) 12.5 Mg Tab, 1 TAB PO BID, #180 TAB 1 Refill Prov:LENA PATTERSON MD 02/18/23 Rivaroxaban (XARELTO) 20 Mg Tab, 1 TAB PO DAILY, #90 TAB 3 Refills Prov:LENA PATTERSON MD 02/18/23 Amiodarone Hcl (Amiodarone Hcl) 200 Mg Tab, 1 TAB PO BID, #180 TAB 5 Refills Prov:LENA PATTERSON MD 02/18/23 Reported Medications Latanoprost (LATANOPROST) 0.005 % Ryanne, 1 DROP EACHEYE QPM, #7.5 ML 3 Refills 09/14/24 Methotrexate (Methotrexate) 2.5 Mg Tab, 50 MG SC, MG 09/14/24 Insulin Glargine (Basaglar Kwikpen) 100 Unit/Ml Inj, 100 UNIT SC, INJ 09/14/24 Metoprolol Succinate (Metoprolol Succinate Er) 100 Mg Tab, 1 TAB PO DAILY 09/14/24 Sertraline Hcl (Sertraline Hcl) 25 Mg Tab, 1 TAB PO DAILY, #30 TAB 2 Refills 09/11/24 Folic Lnqr-Ychucdvung-Hpbapqgd (Folbic) Tab, 1 TAB PO DAILY, #90 TAB 1 Refill 09/11/24 Clopidogrel Bisulfate (CLOPIDOGREL) 75 Mg Tab, 1 TAB PO DAILY, #90 TAB 1 Refill 09/11/24 Atorvastatin Calcium (ATORVASTATIN CALCIUM) 80 Mg Tab, 1 TAB PO DAILY, #30 TAB 5 Refills 09/11/24 Aspirin (Aspir-81) 81 Mg Tab, 1 TAB PO DAILY, #30 TAB 5 Refills 09/11/24 Gabapentin (Gabapentin) 100 Mg Cap, 1 CAP PO DAILY 02/13/23 Hydrochlorothiazide W/Triamter (Dyazide 37.5/25MG) 1 Cap Cp, 1 CAP PO DAILY 02/13/23 Amlodipine Besylate (Amlodipine Besylate) 10 Mg Tab, 0.5 TAB PO DAILY 02/13/23 Metoprolol Tartrate (LOPRESSOR TABLET) 50 Mg Tb, 1 TAB PO DAILY 02/13/23 Methotrexate (Methotrexate Sodium) 2.5 Mg Tab, 2.5 MG PO DAILY 02/13/23 Metformin Hydrochloride (Metformin Hcl) 1,000 Mg Tab, 1 TAB PO BID 02/13/23 Losartan Potassium (Losartan Potassium) 100 Mg Tab, 1 TAB PO DAILY 02/13/23 Glipizide (Glipizide) 10 Mg Tab, 1 TAB PO BID 02/13/23 Dronedarone Hydrochloride (Multaq) 400 Mg Tab, 1 TAB PO BID 02/13/23 Empagliflozin (Jardiance) 10 Mg Tab, 1 TAB PO DAILY 02/13/23 Apixaban Base (ELIQUIS) 5 Mg Tab, 1 TAB PO BID 02/13/23 Current Medications Current Medications Medications (Trade) Dose Ordered Sig/Norberto Route PRN Reason Start Time Stop Time Status Last Admin Atorvastatin Calcium (Lipitor) 40 mg HS PO 10/01/24 22:00 10/01/24 21:57 Insulin Human Regular (InsuLIN R) HS SC 10/01/24 22:00 10/01/24 22:09 Sacubitril/ Valsartan (Entresto 24-26 Mg tab) 1 tab BID PO 10/02/24 10:00 10/02/24 10:41 Amiodarone HCl (Cordarone Tablet) 200 mg HS PO 10/02/24 22:00 Carvedilol (Coreg Tablet) 3.125 mg Q12HR PO 10/02/24 10:00 10/02/24 10:42 Empaglifozin (Jardiance) 10 mg DAILY PO 10/02/24 10:00 10/02/24 10:41 Isosorbide Mononitrate (Imdur Er Tablet) 30 mg DAILY PO 10/03/24 10:00 Review of Systems A 14-point review of systems is negative unless otherwise noted above Vital Signs Vital Signs Date Time Temp Pulse Resp B/P (MAP) Pulse Ox O2 Delivery O2 Flow Rate FiO2 10/02/24 11:20 137/77 10/02/24 10:42 51 10/02/24 09:00 98.0 19 100 98.0 10/02/24 08:29 Nasal Cannula 4.0 10/02/24 08:29 36 Physical Exam Not in acute distress. Not using accessory muscles of breathing. Mucosa is pink and wet. No carotid bruit. No goiter. Lungs are clear to auscultation. Cardiac: regular, no thrill. S3 gallop is heard. 3+ systolic murmur in the apex is heard. Abdomen is soft. There is no gross mass. There is no hepatomegaly. Extremities reveal 1+ edema bilaterally. Labs/Diagnostic Data Labs Test 10/02/24 10:46 10/02/24 06:01 10/01/24 05:10/01/24 01:36 Range/Units POC Glucose 234 H 70-106 mg/dl White Blood Count 4.3 #L 4.4-10.8 10^3/uL Red Blood Count 4.21 4.0-5.20 10^6/uL Hemoglobin 12.8 12.2-16.2 g/dL Hematocrit 38.9 36.0-46.0 % Mean Corpuscular Volume 92.5 80.0-100.0 fL Mean Corpuscular Hemoglobin 30.5 28.0-32.0 pg Mean Corpuscular Hemoglobin Concent 33.0 32.0-36.0 g/dL Red Cell Distribution Width 16.5 H 11.8-14.3 % Platelet Count 248 140-450 10^3/uL Mean Platelet Volume 7.2 6.9-10.8 fL Neutrophils (%) (Auto) 69.4 37.0-80.0 % Lymphocytes (%) (Auto) 17.4 10.0-50.0 % Monocytes (%) (Auto) 9.1 0.0-12.0 % Eosinophils (%) (Auto) 3.4 0.0-7.0 % Basophils (%) (Auto) 0.7 0.0-2.0 % Neutrophils # (Auto) 3.0 1.6-8.6 10 ^3/uL Lymphocytes # (Auto) 0.7 0.4-5.4 10 ^3/uL Monocytes # (Auto) 0.4 0-1.3 10 ^3/uL Eosinophils # (Auto) 0.1 0-0.8 10 ^3/uL Basophils # (Auto) 0 0-0.2 10 ^3/uL Nucleated Red Blood Cells 0.1 % Sodium Level 143 136-145 mmol/L Potassium Level 3.9 3.5-5.1 mmol/L Chloride Level 103 98-107 mmol/L Carbon Dioxide Level 30 20-31 mmol/L Anion Gap 10 5-15 Blood Urea Nitrogen 21 9-23 mg/dL Creatinine 0.64 0.550-1.02 mg/dL Glomerular Filtration Rate Calc 95 >90 mL/min BUN/Creatinine Ratio 32.8 H 10.0-20.0 Serum Glucose 130 H 74-106 mg/dL Calcium Level 10.0 8.7-10.4 mg/dL Total Bilirubin 0.9 0.2-1.0 mg/dL Aspartate Amino Transferase (AST) 22 <34 U/L Alanine Aminotransferase (ALT) 26 7-40 U/L Alkaline Phosphatase 77 46-116 U/L B-Type Natriuretic Peptide 601.63 0-100 pg/mL Total Protein 7.6 5.7-8.2 g/dL Albumin 4.3 3.2-4.8 g/dL Urine Color Light-yellow Yellow Urine Clarity Clear Clear Urine pH 5.0 5.0-9.0 Urine Specific [place] 1.011 1.001-1.035 Urine Protein Trace H Negative Urine Ketones Negative Negative Urine Blood 2+ H Negative /uL Urine Nitrite Negative Negative Urine Bilirubin Negative Negative Urine Urobilinogen Normal Negative mg/dL Urine Leukocyte Esterase Negative Negative /uL Urine RBC 17 0 - 4 /hpf Urine Microscopic WBC 1 0-5 /HPF Urine Squamous Epithelial Cells None seen <5 /hpf Urine Bacteria None seen None Seen /hpf Urine Glucose 4+ H Normal mg/dL Troponin I High Sensitivity 26 </=34 ng/L Test 10/01/24 00:35 Range/Units Blood Gas Specimen Type Arterial Blood Gas Sample Site Right radial Blood Gas Patient Temperature 37.0 Arterial Blood Date Drawn [id number] Arterial Blood pH 7.441 7.350-7.450 Arterial Blood Partial Pressure CO2 33.8 32.0-45.0 mmHg Arterial Blood Partial Pressure O2 79.9 L 83.0-108.0 mmHg Arterial Blood HCO3 22.5 21.0-28.0 mmol/L Arterial Blood Oxygen Saturation 95.9 94.0-98.0 % Arterial Blood Base Excess -1.1 -2.0-3.0 mmol/L Arterial Blood Oxyhemoglobin 93.9 L 94.0-98.0 % Arterial Blood Carboxyhemoglobin 1.8 H 0.5-1.5 % Arterial Blood Methemoglobin 0.3 0.0-1.5 % Donell Test Modified Blood Gas Total Hemoglobin 12.20 12.0-16.0 g/dL Blood Gas Set Respiration Rate 12.0 Blood Gas Modality Mask - bipap Blood Gas Spontaneous Rate 26 FiO2 % 35.0 Blood Gas EPAP 5 Blood Gas IPAP 12 Blood Gas Comments Plan/Recommendation This is a 69-year old female known outside to our practice who initially present ed 09/30/2024 with reported chest versus epigastric discomfort (later resolved) with associated shortness of breath. Upon ED arrival initial 12-lead electrocardiogram had revealed sinus rhythm at 82 bpm, first degree AV block, with no evidence for acute ischemic changes. Serial HS troponin trend was found to be 31, 31, 26. Initial BNP level was found markedly elevated at 1724 which subsequent chest imaging had revealed cardiomegaly with evidence for pulmonary vascular congestion which she was initiated on IV diuretic therapy. Subsequent BNP level after 3 days of IV diuresis had improved to 601 with repeat chest imaging revealing cardiomegaly with mild congestion. Of note, patient was previously admitted to this facility with similar symptomatology which she was evaluated by cardiology services and later discharged 09/14/2024 in stable condition. Echocardiogram 09/11/2024 at that time had revealed an LVEF of 25-30% which had not changed from prior Echocardiogram findings 08/23/2024 (EF of 25- 30%). It is of note that in early August of 2024, the patient presented to [facility] for chest pain/inferior wall STEMI. At that time, other c ardiologist (Dr. Baird) performed cardiac catheterization for her. At that point, PCI (balloon angioplasty) of LCX/OM, followed by thrombectomy of the same vessels was performed. During the same procedure, patient had thrombus moving into LAD. At that point, thrombectomy of the LAD was also performed. It is of note that the patient had been non-compliant with her outside medications (as per daughter) prior to that visit (including Xarelto for atrial fibrillation) and that presentation could have been secondary to emboli into coronaries. It is of note that in February 2023 during [facility]IO, the patient was found to have left atrial appendage thrombus. Recognizing current clinical presentation, presentation itself again questions possible non-adherence to prescribed out- patient medications including but not limited to diuretic therapy. Of note, cardiology services were involved by primary team request late within the admission for cardiac aspects of care. Past medical history includes diabetes mellitus, hypertension, hyperlipidemia, persistent AFib (should be on long-term anticoagulation, Xarelto), neuropathy, morbid obesity, hypothyroidism, nonalcoholic fatty liver disease, old history of ventral hernia, and old history of cholecystectomy//hernia repair and hysterectomy. 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 In February 2023, MARCIO had revealed left atrial appendage thrombus. She did have WV/STEMI (inferior wall) on August 21, 2024. Does have history of noncompliance secondary to poor memory (as per daughter). Echocardiogram of January 2023 (performed in the office) revealed ejection fraction of 30% Echocardiogram of June 23, 2024 (performed in the office) revealed ejection fraction of 60-65%, mild biatrial enlargement, trace TR/MR Echocardiogram of August 23, 2024 (performed in [facility]) reported ejection fraction of 25-30%, severe left atrial enlargement, moderate right atrial enlargement, [id number] mitral regurgitation, right ventricular systolic pressure 46 mm Hg Echocardiogram of September 11, 2024 (performed in [facility]) reported ejection fraction of 25-30%, dilated LV, moderate LVH, RV dysfunction, biatrial enlargement, severe MAC, mild mitral stenosis, mild mitral regurgitation, trivial to small pericardial effusion, right ventricular systolic pressure 51mmHg Cardiac catheterization (status post STEMI) of August 21, 2024 (performed in [facility]): Status post PCI/balloon angioplasty of LCX/OM, followed by thrombectomy of the same vessels. During the same procedure thrombus went inside LAD and thrombectomy of LAD thrombus was also performed. Patient was started on Plavix/Xarelto at that point. Chest discomfort (HS troponins 31, 31, 26), considered atypical Acute on chronic systolic heart failure, LVEF of 25-30% (09/11/2024) Ischemic cardiomyopathy, status post previous balloon angioplasty of LCX/OM Paroxysmal atrial fibrillation (on chronic anticoagulation), currently sinus rhythm Medical non-adherence Diabetes mellitus II CARDIAC SUGGESTIONS FOR MANAGEMENT: Recognizing clinical presentation, ACS at this point is not considered As ACS is not considered, no indication warranted for ischemic workup at present time To proceed with optimized medical therapy and risk factor modification during the interim Recognizing comorbidities, continuation of long-term anticoagulation therapy is advised To proceed with GDMT for systolic heart failure as concurrent conditions permit Recognizing EF of 25-30%, continuation of Kestra life vest upon DC is advised Proceed with IV diuretic therapy (on Lasix 40mg twice daily as for now) Proceed with close observation for overt signs of fluid overload Proceed with strict intakes, outputs, and daily weights Add Metolazone as needed to augment diuresis Proceed with supplemental oxygen as warranted Trial Isosorbide 30mg once daily as for now Dual therapy (Eliquis + Plavix) Carvedilol 3.125mg twice daily Entresto 24-26mg twice daily Atorvastatin 40mg once daily Aldactone 25mg once daily Jardiance 10mg once daily Amiodarone 200mg q hs Counseled at length on importance of adherence to medical therapy Proceed with close rate and rhythm surveillance Proceed with close hemodynamic surveillance Proceed with optimized blood pressure control Transfuse to sustain HGB level above 7.0 Sustain Magnesium level greater than 2.0 Sustain Potassium level greater than 4.0 Follow up renal function and electrolytes Management in telemetry Will proceed to follow from a cardiac perspective Further recommendations per clinical progression All available diagnostic labs, EKG's, and images were personally reviewed Patient's status, findings, and plan of care was reviewed and discussed with supervising physician Dr. Rodriguez, who is in agreement with current plan of ca re. Plan of care discussed with and agreed upon by patient / primary RN Prognosis: Guarded Thank you for allowing me to participate in the care of this patient. Further recommendations based on patients clinical course and progression, primary attending, and other consultants. Will continue to follow with primary attending. If you have any questions or concerns, please do not hesitate to contact me. A total of 75 minutes was spent reviewing the patient record, examining the patient, making a diagnostic and therapeutic plan, discussing this plan with medical personnel, following up on diagnostic studies and following the patient for clinical stability excluding any and all procedures. At least 50% of this time was spent in direct, [id number]-[id number] contact. Plan discussed with: Patient (Patient and Primary RN ) SOY RAMOS [facility] [place] Oct 02, 2024 12:57
[2024-10-02] MEDS: AMIODARONE HCL 200 MG TAB PO SCH (21:31)
[2024-10-03] VITALS (8 sets, daily range): BP systolic 91–141; BP diastolic 55–76; PULSE 48–101; RESP 16–18; TEMP 97.2–98.4; O2SAT 96–100
[2024-10-03 02:39] LABS: COVID19 ANTIGEN SOFIA FIA NEGATIVE (NEGATIVE); Rapid Influenza A Negative (Negative); Rapid Influenza B Negative (Negative)
--- NOTE | 2024-10-03 09:51 | DVHPN2 ---
Reviewed: Care Plan, H&P, Labs, Medications, Previous Orders, Radiology Changes from previous H/P or p: No Changes Eyes: No Pain, No Vision change, No Conjunctivae inflammation, No Eyelid inflammation, No Other, No Redness ENT: No Ear pain, No Ear discharge, No Nose pain, No Nose discharge, No Nose congestion, No Mouth pain, No Mouth swelling, No Throat pain, No Throat swelling, No Other Cardiovascular: No Chest Pain, No Palpitations, No Orthopnea, No Paroxysmal Noc. Dyspnea, No Edema, No Lt Headedness, No Other Respiratory: No Cough, No Dry; Shortness of breath; No SOB with excertion, No Wheezing, No Hemoptysis, No Pleuritic Pain, No Sputum; Other (SOB at rest) Gastrointestinal: No Nausea, No Vomiting, No Abdominal Pain, No Diarrhea, No Constipation, No Melena, No Hematochezia, No Other Genitourinary: No Dysuria, No Frequency, No Incontinence, No Hematuria, No Retention, No Other Musculoskeletal: No other, No neck pain, No shoulder pain, No arm pain, No back pain, No hand pain, No leg pain, No foot pain Skin: No Rash, No Lesions, No Jaundice, No Bruising, No Other Objective Vitals Vital Signs Date Time Temp Pulse Resp B/P (MAP) Pulse Ox O2 Delivery O2 Flow Rate FiO2 10/03/24 08:00 Nasal Cannula* 4 36 10/03/24 05:00 98.4 57 17 128/71 (90) 100 98.4 Intake/Output Intake and Output 10/03/24 07:00 Intake Total 1675 ml Output Total 4050 ml Balance -2375 ml Intake Oral 1675 ml Output Urine Total 4050 ml Medications Current Medications Medications Dose Ordered Sig/Norberto Route Start Time Stop Time Status Last Admin Dose Admin Furosemide 40 mg DAILY IV 10/01/24 10:00 10/02/24 10:00 40 MG Atorvastatin Calcium 40 mg HS PO 10/01/24 22:00 10/02/24 21:35 40 MG Amlodipine Besylate 5 mg DAILY PO 10/01/24 10:00 10/02/24 10:42 5 MG Clonidine HCl 0.1 mg Q4HP PRN PO 10/01/24 01:15 Apixaban 5 mg BID PO 10/01/24 10:00 10/02/24 21:35 5 MG Diagnostic Test (Pha) 1 strip ACHS 10/01/24 07:00 10/03/24 06:21 1 STRIP Insulin Human Regular HS SC 10/01/24 22:00 10/02/24 21:37 4 UNITS Insulin Human Regular AC SC 10/01/24 07:00 10/03/24 06:39 2 UNITS Dextrose 50 ml UD PRN IV 10/01/24 01:15 Sodium Chloride 10 ml Q8HR IV 10/01/24 06:00 10/03/24 06:21 10 ML Acetaminophen/ Hydrocodone Bitart 1 tab Q4HP PRN PO 10/01/24 01:15 Ondansetron HCl 4 mg Q4HP PRN IV 10/01/24 01:15 Docusate Sodium 100 mg BIDPRN PRN PO 10/01/24 01:15 Acetaminophen 650 mg Q6HP PRN PO 10/01/24 01:15 10/02/24 23:08 650 MG Nitroglycerin 0.4 mg Q5MINP PRN SL 10/01/24 01:15 Morphine Sulfate 2 mg Q30M PRN IV 10/01/24 01:15 Sacubitril/ Valsartan 1 tab BID PO 10/02/24 10:00 10/02/24 21:35 1 TAB Amiodarone HCl 200 mg HS PO 10/02/24 22:00 Carvedilol 3.125 mg Q12HR PO 10/02/24 10:00 10/02/24 10:42 3.125 MG Empaglifozin 10 mg DAILY PO 10/02/24 10:00 10/02/24 10:41 10 MG Isosorbide Mononitrate 30 mg DAILY PO 10/03/24 10:00 Clopidogrel Bisulfate 75 mg DAILY PO 10/03/24 10:00 Spironolactone 25 mg DAILY PO 10/03/24 10:00 Laboratory Results Laboratory Tests 10/02/24 06:01 Chemistry Test 10/03/24 06:00 Magnesium Level 2.0 mg/dL (1.6-2.6) Urinalysis Test 10/01/24 05:26 Urine Color Light-yellow (Yellow) Urine Clarity Clear (Clear) Urine pH 5.0 (5.0-9.0) Urine Specific [place] 1.011 (1.001-1.035) Urine Protein Trace (Negative) H Urine Ketones Negative (Negative) Urine Blood 2+ /uL (Negative) H Urine Nitrite Negative (Negative) Urine Bilirubin Negative (Negative) Urine Urobilinogen Normal mg/dL (Negative) Urine Leukocyte Esterase Negative /uL (Negative) Urine RBC 17 /hpf (0 - 4) Urine Microscopic WBC 1 /HPF (0-5) Urine Squamous Epithelial Cells None seen /hpf (<5) Urine Bacteria None seen /hpf (None Seen) Urine Glucose 4+ mg/dL (Normal) H Labs and/or images reviewed: Labs reviewed by me, Image(s) reviewed by me Assessment/Plan Assessment/Plan Chest pain normal troponin: Treatment per ACS protocol, consult for Dr. Bowling appreciated Acute exacerbation of congestive heart failure BNP 1724: Lasix, Jardiance, Coreg, amiodarone, Entresto, metolazone, ejection fraction 25 % on 09/11/2024, LifeVest recommended by Cardiology Atrial fibrillation: Eliquis , Plavix History of coronary artery disease status post stents in [facility] Diabetes Hypertension: Amlodipine Hypercholesterolemia: Lipitor History of [place] Acute hypokalemia potassium 3.0: Replace potassium Time spent 66 minutes [place] Ferrer [id number] Haley Patient is full code Patient has LifeVest KYLE Velasquez at bedside Plan discussed with: Patient My Orders Orders - LENA PATTERSON MD Procedure Category Date Status Time Transfer Service ORDERS 10/02/24 Transmitted 12:11 Date of Service: Oct 03, 2024 Billing Provider: LENA PATTERSON MD Common Visit Codes: [id number] CARE 30-74 MIN LENA PATTERSON MD Oct 03, 2024 09:51
[2024-10-03] MEDS: ISOSORBIDE MONONITRATE ER 60 MG TAB PO SCH (10:07)
[2024-10-03] MEDS: CLOPIDOGREL BISULFATE 75 MG TAB PO SCH (10:09)
[2024-10-03] MEDS: SPIRONOLACTONE 25 MG TAB PO SCH (10:09)
--- NOTE | 2024-10-03 15:00 | DVHPN2 ---
Progress Note - Dictate Date Seen: Oct 03, 2024 Medical Necessity Reason Pt with a Central, PICC or Fol: No vital signs Vital Sign Date Time Temp Pulse Resp B/P (MAP) Pulse Ox O2 Delivery O2 Flow Rate FiO2 10/03/24 13:00 97.9 48 18 103/55 (71) 96 97.9 10/03/24 08:00 Nasal Cannula* 4 36 Total Intake and Output 10/02/24 10/02/24 10/03/24 15:00 23:00 07:00 Intake Total 900 ml 775 ml Output Total 2700 ml 1350 ml Balance -1800 ml -575 ml medications Current Medications Medications Dose Ordered Sig/Norberto Route Start Time Stop Time Status Last Admin Dose Admin Furosemide 40 mg DAILY IV 10/01/24 10:00 10/03/24 10:26 40 MG Atorvastatin Calcium 40 mg HS PO 10/01/24 22:00 10/02/24 21:35 40 MG Amlodipine Besylate 5 mg DAILY PO 10/01/24 10:00 10/03/24 10:09 5 MG Clonidine HCl 0.1 mg Q4HP PRN PO 10/01/24 01:15 Apixaban 5 mg BID PO 10/01/24 10:00 10/03/24 10:09 5 MG Diagnostic Test (Pha) 1 strip ACHS 10/01/24 07:00 10/03/24 11:45 1 STRIP Insulin Human Regular HS SC 10/01/24 22:00 10/02/24 21:37 4 UNITS Insulin Human Regular AC SC 10/01/24 07:00 10/03/24 11:54 12 UNITS Dextrose 50 ml UD PRN IV 10/01/24 01:15 Sodium Chloride 10 ml Q8HR IV 10/01/24 06:00 10/03/24 14:00 10 ML Acetaminophen/ Hydrocodone Bitart 1 tab Q4HP PRN PO 10/01/24 01:15 Ondansetron HCl 4 mg Q4HP PRN IV 10/01/24 01:15 Docusate Sodium 100 mg BIDPRN PRN PO 10/01/24 01:15 Acetaminophen 650 mg Q6HP PRN PO 10/01/24 01:15 10/03/24 12:43 650 MG Nitroglycerin 0.4 mg Q5MINP PRN SL 10/01/24 01:15 Morphine Sulfate 2 mg Q30M PRN IV 10/01/24 01:15 Sacubitril/ Valsartan 1 tab BID PO 10/02/24 10:00 10/03/24 10:10 1 TAB Amiodarone HCl 200 mg HS PO 10/02/24 22:00 Carvedilol 3.125 mg Q12HR PO 10/02/24 10:00 10/03/24 10:10 3.125 MG Empaglifozin 10 mg DAILY PO 10/02/24 10:00 10/03/24 10:08 10 MG Isosorbide Mononitrate 30 mg DAILY PO 10/03/24 10:00 10/03/24 10:07 30 MG Clopidogrel Bisulfate 75 mg DAILY PO 10/03/24 10:00 10/03/24 10:09 75 MG Spironolactone 25 mg DAILY PO 10/03/24 10:00 10/03/24 10:09 25 MG laboratory and microbiology Laboratory Tests 10/02/24 06:01 Test 10/02/24 06:01 Range/Units Serum Glucose 130 H 74-106 mg/dL Assessment/Plan This is a 69-year old female known outside to our practice who initially presented 09/30/2024 with reported chest versus epigastric discomfort (later resolved) with associated shortness of breath. Upon ED arrival initial 12-lead electrocardiogram had revealed sinus rhythm at 82 bpm, first degree AV block, with no evidence for acute ischemic changes. Serial HS troponin trend was found to be 31, 31, 26. Initial BNP level was found markedly elevated at 1724 which subsequent chest imaging had revealed cardiomegaly with evidence for pulmonary vascular congestion which she was initiated on IV diuretic therapy. Subsequent BNP level after 3 days of IV diuresis had improved to 601 with repeat chest imaging revealing cardiomegaly with mild congestion. Of note, patient was previously admitted to this facility with similar symptomatology which she was evaluated by cardiology services and later discharged 09/14/2024 in stable condition. Echocardiogram 09/11/2024 at that time had revealed an LVEF of 25-30% which had not changed from prior Echocardiogram findings 08/23/2024 (EF of 25- 30%). It is of note that in early August of 2024, the patient presented to [facility] for chest pain/inferior wall STEMI. At that time, other matchbook maker (Dr. Baird) performed cardiac catheterization for her. At that point, PCI (balloon angioplasty) of LCX/OM, followed by thrombectomy of the same vessels was performed. During the same procedure, patient had thrombus moving into LAD. At that point, thrombectomy of the LAD was also performed. It is of note that the patient had been non-compliant with her outside medications (as per daughter) prior to that visit (including Xarelto for atrial fibrillation) and that presentation could have been secondary to emboli into coronaries. It is of note that in February 2023 during [facility], the patient was found to have left atrial appendage thrombus. Recognizing current clinical presentation, presentation itself again questions possible non-adherence to prescribed out- patient medications including but not limited to diuretic therapy. Of note, cardiology services were involved by primary team request late within the admission for cardiac aspects of care. Past medical history includes diabetes mellitus, hypertension, hyperlipidemia, persistent AFib (should be on long-term anticoagulation, Xarelto), neuropathy, morbid obesity, hypothyroidism, nonalcoholic fatty liver disease, old history of ventral hernia, and old history of cholecystectomy//hernia repair and hysterectomy. 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 In February 2023, MARCIO had revealed left atrial appendage thrombus. She did have NC/STEMI (inferior wall) on August 21, 2024. Does have history of noncompliance secondary to poor memory (as per daughter). Echocardiogram of January 2023 (performed in the office) revealed ejection fraction of 30% Echocardiogram of June 23, 2024 (performed in the office) revealed ejection fraction of 60-65%, mild biatrial enlargement, trace TR/MR Echocardiogram of August 23, 2024 (performed in [facility]) reported ejection fraction of 25-30%, severe left atrial enlargement, moderate right atrial enlargement, [id number] mitral regurgitation, right ventricular systolic pressure 46 mm Hg Echocardiogram of September 11, 2024 (performed in [facility]) reported ejection fraction of 25-30%, dilated LV, moderate LVH, RV dysfunction, biatrial enlargement, severe MAC, mild mitral stenosis, mild mitral regurgitation, trivial to small pericardial effusion, right ventricular systolic pressure 51mmHg Cardiac catheterization (status post STEMI) of August 21, 2024 (performed in [facility]): Status post PCI/balloon angioplasty of LCX/OM, followed by thrombectomy of the same vessels. During the same procedure thrombus went inside LAD and thrombectomy of LAD thrombus was also performed. Patient was started on Plavix/Xarelto at that point. Chest discomfort (HS troponins 31, 31, 26), considered atypical Acute on chronic systolic heart failure, LVEF of 25-30% (09/11/2024) Ischemic cardiomyopathy, status post previous balloon angioplasty of LCX/OM Paroxysmal atrial fibrillation (on chronic anticoagulation), currently sinus rhythm Medical non-adherence Diabetes mellitus II CARDIAC SUGGESTIONS FOR MANAGEMENT: Recognizing clinical presentation, ACS at this point is not considered As ACS is not considered, no indication warranted for ischemic workup at present time To proceed with optimized medical therapy and risk factor modification during the interim Recognizing comorbidities, continuation of long-term anticoagulation therapy is advised To proceed with GDMT for systolic heart failure as concurrent conditions permit Recognizing EF of 25-30%, continuation of Kestra life vest upon DC is advised Proceed with IV diuretic therapy (on Lasix 40mg twice daily as for now) Proceed with close observation for overt signs of fluid overload Proceed with strict intakes, outputs, and daily weights Add Metolazone as needed to augment diuresis Proceed with supplemental oxygen as warranted Trial Isosorbide 30mg once daily as for now Dual therapy (Eliquis + Plavix) Carvedilol 3.125mg twice daily Entresto 24-26mg twice daily Atorvastatin 40mg once daily Aldactone 25mg once daily Jardiance 10mg once daily Amiodarone 200mg q hs Counseled at length on importance of adherence to medical therapy Proceed with close rate and rhythm surveillance Proceed with close hemodynamic surveillance Proceed with optimized blood pressure control Transfuse to sustain HGB level above 7.0 Sustain Magnesium level greater than 2.0 Sustain Potassium level greater than 4.0 Follow up renal function and electrolytes Management in telemetry Will proceed to follow from a cardiac perspective Further recommendations per clinical progression All available diagnostic labs, EKG's, and images were personally reviewed Patient's status, findings, and plan of care was reviewed and discussed with supervising physician Dr. Rodriguez, who is in agreement with current plan of care. Plan of care discussed with and agreed upon by patient / primary RN Prognosis: Guarded Thank you for allowing me to participate in the care of this patient. Further recommendations based on patients clinical course and progression, primary attending, and other consultants. Will continue to follow with primary attending. If you have any questions or concerns, please do not hesitate to contact me. A total of 75 minutes was spent reviewing the patient record, examining the patient, making a diagnostic and therapeutic plan, discussing this plan with medical personnel, following up on diagnostic studies and following the patient for clinical stability excluding any and all procedures. At least 50% of this time was spent in direct, [id number] contact. Plan discussed with: Patient (Patient and Primary RN ) SOY RAMOS [facility] Oct 03, 2024 15:00
[2024-10-03] MEDS: ALBUMIN 25% 50 ML IV ONE (15:29)
[2024-10-03 15:47] LABS: Basophils # (auto) 0 10 ^3/uL (0-0.2); Basophils % (auto) 0.6 % (0.0-2.0); Eosinophils # (auto) 0.1 10 ^3/uL (0-0.8); Hematocrit 40.2 % (36.0-46.0); Hemoglobin 13.2 g/dL (12.2-16.2); Lymphocytes # (auto) 0.7 10 ^3/uL (0.4-5.4); Lymphocytes % (auto) 12.7 % (10.0-50.0); Mean Corpuscular Hemoglobin 30.5 pg (28.0-32.0); Mean Corpuscular Hgb Conc. 32.9 g/dL (32.0-36.0); Mean Corpuscular Volume 92.7 fL (80.0-100.0); Monocytes # (auto) 0.6 10 ^3/uL (0-1.3); Monocytes % (auto) 11.3 % (0.0-12.0); Neutrophils # (auto) 4.1 10 ^3/uL (1.6-8.6); Neutrophils % (auto) 73.4 % (37.0-80.0); Nucleated Red Blood Cells % 0.1 %; Platelet Count (auto) 299 10^3/uL (140-450); Red Blood Cells 4.34 10^6/uL (4.0-5.20); Red Cell Distribution Width 16.8 % (11.8-14.3); White Blood Cell 5.6 10^3/uL (4.4-10.8)
[2024-10-03 15:55] LABS: Sodium 137 mmol/L (136-145)
[2024-10-03 15:56] LABS: Anion Gap 11 (5-15); Carbon Dioxide 31 mmol/L (20-31)
[2024-10-03 16:02] LABS: BUN/Creatinine Ratio 23.1 (10.0-20.0); Blood Urea Nitrogen 37 mg/dL (9-23); Chloride 95 mmol/L (98-107); Glucose 316 mg/dL (74-106); Potassium 3.5 mmol/L (3.5-5.1)
[2024-10-03] MEDS ORDERED: ATROPINE SULF 1 MG/10ml SYR IV PRN (16:45)
[2024-10-04] VITALS (8 sets, daily range): BP systolic 91–106; BP diastolic 58–77; PULSE 57–111; RESP 16–20; TEMP 97.8–98.2; O2SAT 76–100
--- NOTE | 2024-10-04 00:12 | DVH ---
CT BRAIN WITHOUT CONTRAST HISTORY: loss of conciousness TECHNIQUE: Axial scans were obtained from the skull base through the vertex without contrast. Sagitta l and coronal reformats were generated. One or more of the following radiation dose reduction techniq ues were used for this examination: automated exposure control, adjustment of the mA and/or kV accord ing to patient size, use of iterative reconstruction technique. COMPARISON: CT HEAD WITHOUT CONTRAST on DOS: 09/24/24 Dose: CTDIvol: 58.64 mGy, DLP: 940 mGy cm FINDINGS: Evaluation is degraded by motion and streak artifact. No acute territorial infarct, intracranial hemorrhage, or mass effect. There are global involutional changes with compensatory prominence of the ventricles and sulci. Patchy periventricular and subcorti derrek white matter hypoattenuation is nonspecific but may be related to small vessel ischemic disease. There is tissue loss with gliosis / encephalomalacia involving the left parietal and right occipital lobe suggesting chronic infarcts. The orbits are normal. The paranasal sinuses and mastoid air cells are clear. The osseous structures are unremarkable. IMPRESSION: 1. No acute territorial infarct, intracranial hemorrhage, or mass effect. 2. Age-related involutional changes. Chronic ischemic changes as detailed.
--- NOTE | 2024-10-04 07:57 | ECG ---
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
--- NOTE | 2024-10-04 07:57 | ECG ---
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
--- NOTE | 2024-10-04 08:13 | DVHPN2 ---
Progress Note - Dictate Date Seen: Oct 04, 2024 Medical Necessity Reason Pt with a Central, PICC or Fol: No vital signs Vital Sign Date Time Temp Pulse Resp B/P (MAP) Pulse Ox O2 Delivery O2 Flow Rate FiO2 10/04/24 05:00 98.2 67 18 106/72 (83) 100 98.2 10/03/24 20:00 Nasal Cannula* 4 36 Total Intake and Output 10/03/24 10/03/24 10/04/24 15:00 23:00 07:00 Intake Total 1600 ml 1000 ml 400 ml Output Total 850 ml 1200 ml Balance 1600 ml 150 ml -800 ml medications Current Medications Medications Dose Ordered Sig/Norberto Route Start Time Stop Time Status Last Admin Dose Admin Furosemide 40 mg DAILY IV 10/01/24 10:00 10/03/24 10:26 40 MG Atorvastatin Calcium 40 mg HS PO 10/01/24 22:00 10/03/24 21:30 40 MG Amlodipine Besylate 5 mg DAILY PO 10/01/24 10:00 10/03/24 10:09 5 MG Clonidine HCl 0.1 mg Q4HP PRN PO 10/01/24 01:15 Apixaban 5 mg BID PO 10/01/24 10:00 10/03/24 21:30 5 MG Diagnostic Test (Pha) 1 strip ACHS 10/01/24 07:00 10/04/24 06:16 1 STRIP Insulin Human Regular HS SC 10/01/24 22:00 10/03/24 21:29 10 UNITS Insulin Human Regular AC SC 10/01/24 07:00 10/04/24 06:23 3 UNITS Dextrose 50 ml UD PRN IV 10/01/24 01:15 Sodium Chloride 10 ml Q8HR IV 10/01/24 06:00 10/04/24 06:17 10 ML Acetaminophen/ Hydrocodone Bitart 1 tab Q4HP PRN PO 10/01/24 01:15 Ondansetron HCl 4 mg Q4HP PRN IV 10/01/24 01:15 Docusate Sodium 100 mg BIDPRN PRN PO 10/01/24 01:15 Acetaminophen 650 mg Q6HP PRN PO 10/01/24 01:15 10/03/24 12:43 650 MG Nitroglycerin 0.4 mg Q5MINP PRN SL 10/01/24 01:15 Morphine Sulfate 2 mg Q30M PRN IV 10/01/24 01:15 Sacubitril/ Valsartan 1 tab BID PO 10/02/24 10:00 10/03/24 10:10 1 TAB Amiodarone HCl 200 mg HS PO 10/02/24 22:00 Carvedilol 3.125 mg Q12HR PO 10/02/24 10:00 10/03/24 10:10 3.125 MG Empaglifozin 10 mg DAILY PO 10/02/24 10:00 10/03/24 10:08 10 MG Isosorbide Mononitrate 30 mg DAILY PO 10/03/24 10:00 10/03/24 10:07 30 MG Clopidogrel Bisulfate 75 mg DAILY PO 10/03/24 10:00 10/03/24 10:09 75 MG Spironolactone 25 mg DAILY PO 10/03/24 10:00 10/03/24 10:09 25 MG Atropine Sulfate 0.5 mg Q4HR PRN IV 10/03/24 16:45 laboratory and microbiology Laboratory Tests 10/03/24 15:35 Test 10/03/24 15:35 Range/Units Serum Glucose 316 H 74-106 mg/dL Assessment/Plan This is a 69-year old female known outside to our practice who initially presented 09/30/2024 with reported chest versus epigastric discomfort (later resolved) with associated shortness of breath. Upon ED arrival initial 12-lead electrocardiogram had revealed sinus rhythm at 82 bpm, first degree AV block, with no evidence for acute ischemic changes. Serial HS troponin trend was found to be 31, 31, 26. Initial BNP level was found markedly elevated at 1724 which subsequent chest imaging had revealed cardiomegaly with evidence for pulmonary vascular congestion which she was initiated on IV diuretic therapy. Subsequent BNP level after 3 days of IV diuresis had improved to 601 with repeat chest imaging revealing cardiomegaly with mild congestion. Of note, patient was previously admitted to this facility with similar symptomatology which she was evaluated by cardiology services and later discharged 09/14/2024 in stable condition. Echocardiogram 09/11/2024 at that time had revealed an LVEF of 25-30% which had not changed from prior Echocardiogram findings 08/23/2024 (EF of 25- 30%). It is of note that in early August of 2024, the patient presented to for chest pain/inferior wall STEMI. At that time, other hydrogeology professor (Dr. Baird) performed cardiac catheterization for her. At that point, PCI (balloon angioplasty) of LCX/OM, followed by thrombectomy of the same vessels was performed. During the same procedure, patient had thrombus moving into LAD. At that point, thrombectomy of the LAD was also performed. It is of note that the patient had been non-compliant with her outside medications (as per daughter) prior to that visit (including Xarelto for atrial fibrillation) and that presentation could have been secondary to emboli into coronaries. It is of note that in February 2023 during [facility], the patient was found to have left atrial appendage thrombus. Recognizing current clinical presentation, presentation itself again questions possible non-adherence to prescribed out- patient medications including but not limited to diuretic therapy. Of note, cardiology services were involved by primary team request late within the admission for cardiac aspects of care. Past medical history includes diabetes mellitus, hypertension, hyperlipidemia, persistent AFib (should be on long-term anticoagulation, Xarelto), neuropathy, morbid obesity, hypothyroidism, nonalcoholic fatty liver disease, old history of ventral hernia, and old history of cholecystectomy//hernia repair and hysterectomy. 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 In February 2023, MARCIO had revealed left atrial appendage thrombus. She did have VA/STEMI (inferior wall) on August 21, 2024. Does have history of noncompliance secondary to poor memory (as per daughter). Echocardiogram of January 2023 (performed in the office) revealed ejection fraction of 30% Echocardiogram of June 23, 2024 (performed in the office) revealed ejection fraction of 60-65%, mild biatrial enlargement, trace TR/MR Echocardiogram of August 23, 2024 (performed in [facility]) reported ejection fraction of 25-30%, severe left atrial enlargement, moderate right atrial enlargement, [id number] mitral regurgitation, right ventricular systolic pressure 46 mm Hg Echocardiogram of September 11, 2024 (performed in [facility]) reported ejection fraction of 25-30%, dilated LV, moderate LVH, RV dysfunction, biatrial enlargement, severe MAC, mild mitral stenosis, mild mitral regurgitation, trivial to small pericardial effusion, right ventricular systolic pressure 51mmHg Cardiac catheterization (status post STEMI) of August 21, 2024 (performed in [facility]): Status post PCI/balloon angioplasty of LCX/OM, followed by thrombectomy of the same vessels. During the same procedure thrombus went inside LAD and thrombectomy of LAD thrombus was also performed. Patient was started on Plavix/Xarelto at that point. Chest discomfort (HS troponins 31, 31, 26), considered atypical Acute on chronic systolic heart failure, LVEF of 25-30% (09/11/2024) Ischemic cardiomyopathy, status post previous balloon angioplasty of LCX/OM Paroxysmal atrial fibrillation (on chronic anticoagulation), Medical non-adherence Diabetes mellitus II CARDIAC SUGGESTIONS FOR MANAGEMENT: Recognizing clinical presentation, ACS at this point is not considered No indication for repeat ischemic workup at present time To proceed with optimized medical therapy and risk factor modification during the interim Recognizing comorbidities, continuation of long-term anticoagulation therapy is advised To proceed with GDMT for systolic heart failure as concurrent conditions permit Recognizing EF of 25-30%, continuation of Kestra life vest upon DC is advised Proceed with IV diuretic therapy (on Lasix 40mg twice daily as for now) Proceed with close observation for overt signs of fluid overload Proceed with strict intakes, outputs, and daily weights Add Metolazone as needed to augment diuresis Proceed with supplemental oxygen as warranted Trial Isosorbide 30mg once daily as for now Dual therapy (Eliquis + Plavix) Carvedilol 3.125mg twice daily Entresto 24-26mg twice daily Atorvastatin 40mg once daily Aldactone 25mg once daily Jardiance 10mg once daily Amiodarone 200mg q hs Has Life Vest Counseled at length on importance of adherence to medical therapy Proceed with close rate and rhythm surveillance Proceed with close hemodynamic surveillance Proceed with optimized blood pressure control Transfuse to sustain HGB level above 7.0 Sustain Magnesium level greater than 2.0 Sustain Potassium level greater than 4.0 Follow up renal function and electrolytes Management in telemetry Will proceed to follow from a cardiac perspective Further recommendations per clinical progression All available diagnostic labs, EKG's, and images were personally reviewed Plan of care discussed with and agreed upon by patient / primary RN Prognosis: Guarded Thank you for allowing me to participate in the care of this patient. Further recommendations based on patients clinical course and progression, primary attending, and other consultants. Will continue to follow with primary attending. If you have any questions or concerns, please do not hesitate to contact me. A total of 75 minutes was spent reviewing the patient record, examining the patient, making a diagnostic and therapeutic plan, discussing this plan with medical personnel, following up on diagnostic studies and following the patient for clinical stability excluding any and all procedures. At least 50% of this time was spent in direct, [id number] contact. Plan discussed with: Patient, Daughter (at bedside), Other (nurse) MAXIMINO KIRK MD Oct 04, 2024 08:13
--- NOTE | 2024-10-04 09:41 | DVHPN2 ---
Reviewed: Care Plan, H&P, Labs, Medications, Previous Orders, Radiology Changes from previous H/P or p: No Changes Eyes: No Pain, No Vision change, No Conjunctivae inflammation, No Eyelid inflammation, No Other, No Redness ENT: No Ear pain, No Ear discharge, No Nose pain, No Nose discharge, No Nose congestion, No Mouth pain, No Mouth swelling, No Throat pain, No Throat swelling, No Other Cardiovascular: No Chest Pain, No Palpitations, No Orthopnea, No Paroxysmal Noc. Dyspnea, No Edema, No Lt Headedness, No Other Respiratory: No Cough, No Dry; Shortness of breath; No SOB with excertion, No Wheezing, No Hemoptysis, No Pleuritic Pain, No Sputum; Other (SOB at rest) Gastrointestinal: No Nausea, No Vomiting, No Abdominal Pain, No Diarrhea, No Constipation, No Melena, No Hematochezia, No Other Genitourinary: No Dysuria, No Frequency, No Incontinence, No Hematuria, No Retention, No Other Musculoskeletal: No other, No neck pain, No shoulder pain, No arm pain, No back pain, No hand pain, No leg pain, No foot pain Skin: No Rash, No Lesions, No Jaundice, No Bruising, No Other Objective Vitals Vital Signs Date Time Temp Pulse Resp B/P (MAP) Pulse Ox O2 Delivery O2 Flow Rate FiO2 10/04/24 09:00 97.9 73 19 100/73 (82) 76 97.9 10/04/24 08:00 Nasal Cannula* 3 32 Intake/Output Intake and Output 10/04/24 07:00 Intake Total 3000 ml Output Total 2050 ml Balance 950 ml Intake Oral 3000 ml Output Urine Total 2050 ml # Bowel Movements 1 Medications Current Medications Medications Dose Ordered Sig/Norberto Route Start Time Stop Time Status Last Admin Dose Admin Furosemide 40 mg DAILY IV 10/01/24 10:00 10/03/24 10:26 40 MG Atorvastatin Calcium 40 mg HS PO 10/01/24 22:00 10/03/24 21:30 40 MG Amlodipine Besylate 5 mg DAILY PO 10/01/24 10:00 10/03/24 10:09 5 MG Clonidine HCl 0.1 mg Q4HP PRN PO 10/01/24 01:15 Apixaban 5 mg BID PO 10/01/24 10:00 10/03/24 21:30 5 MG Diagnostic Test (Pha) 1 strip ACHS 10/01/24 07:00 10/04/24 06:16 1 STRIP Insulin Human Regular HS SC 10/01/24 22:00 10/03/24 21:29 10 UNITS Insulin Human Regular AC SC 10/01/24 07:00 10/04/24 06:23 3 UNITS Dextrose 50 ml UD PRN IV 10/01/24 01:15 Sodium Chloride 10 ml Q8HR IV 10/01/24 06:00 10/04/24 06:17 10 ML Acetaminophen/ Hydrocodone Bitart 1 tab Q4HP PRN PO 10/01/24 01:15 Ondansetron HCl 4 mg Q4HP PRN IV 10/01/24 01:15 Docusate Sodium 100 mg BIDPRN PRN PO 10/01/24 01:15 Acetaminophen 650 mg Q6HP PRN PO 10/01/24 01:15 10/03/24 12:43 650 MG Nitroglycerin 0.4 mg Q5MINP PRN SL 10/01/24 01:15 Morphine Sulfate 2 mg Q30M PRN IV 10/01/24 01:15 Sacubitril/ Valsartan 1 tab BID PO 10/02/24 10:00 10/03/24 10:10 1 TAB Amiodarone HCl 200 mg HS PO 10/02/24 22:00 Carvedilol 3.125 mg Q12HR PO 10/02/24 10:00 10/03/24 10:10 3.125 MG Empaglifozin 10 mg DAILY PO 10/02/24 10:00 10/03/24 10:08 10 MG Isosorbide Mononitrate 30 mg DAILY PO 10/03/24 10:00 10/03/24 10:07 30 MG Clopidogrel Bisulfate 75 mg DAILY PO 10/03/24 10:00 10/03/24 10:09 75 MG Spironolactone 25 mg DAILY PO 10/03/24 10:00 10/03/24 10:09 25 MG Atropine Sulfate 0.5 mg Q4HR PRN IV 10/03/24 16:45 Laboratory Results Laboratory Tests 10/03/24 15:35 Chemistry Test 10/03/24 15:35 Calcium Level 10.0 mg/dL (8.7-10.4) Urinalysis Test 10/01/24 05:26 Urine Color Light-yellow (Yellow) Urine Clarity Clear (Clear) Urine pH 5.0 (5.0-9.0) Urine Specific [place] 1.011 (1.001-1.035) Urine Protein Trace (Negative) H Urine Ketones Negative (Negative) Urine Blood 2+ /uL (Negative) H Urine Nitrite Negative (Negative) Urine Bilirubin Negative (Negative) Urine Urobilinogen Normal mg/dL (Negative) Urine Leukocyte Esterase Negative /uL (Negative) Urine RBC 17 /hpf (0 - 4) Urine Microscopic WBC 1 /HPF (0-5) Urine Squamous Epithelial Cells None seen /hpf (<5) Urine Bacteria None seen /hpf (None Seen) Urine Glucose 4+ mg/dL (Normal) H Labs and/or images reviewed: Labs reviewed by me, Image(s) reviewed by me Assessment/Plan Assessment/Plan Chest pain normal troponin: Treatment per ACS protocol, consult for Dr. Bowling appreciated Acute exacerbation of congestive heart failure BNP 1724: Lasix, Jardiance, Coreg, amiodarone, Entresto, metolazone, ejection fraction 25 % on 09/11/2024, LifeVest recommended by Cardiology Atrial fibrillation: Eliquis , Plavix History of coronary artery disease status post stents in [facility] Diabetes Hypertension: Amlodipine Hypercholesterolemia: Lipitor History of [place] Acute hypokalemia potassium 3.0: Replace potassium Acute hypotension: Improved after albumin transfusion Altered mental status: CT brain negative Time spent 67 minutes Parish Ferrer [id number] Haley Patient is full code Patient has LifeVest RN Rika at bedside Plan discussed with: Patient My Orders Orders - LENA PATTERSON MD Procedure Category Date Status Time Head Without Contrast CT 10/03/24 Resulted 14:56 Date of Service: Oct 04, 2024 Billing Provider: LENA PATTERSON MD Common Visit Codes: [id number] CARE 30-74 MIN LEAN PATTERSON MD Oct 04, 2024 09:41
[2024-10-04] MEDS ORDERED: DEXTROSE (50%) 50ML SYRG IV PRN (11:30)
[2024-10-04] MEDS: InsuLIN REG 1unit/0.01ml Soln (100units/ml) SC SCH ×2 (12:02→22:11)
[2024-10-04] MEDS: ACCU-CHEK COMFORT CURVE STRIP VI SCH (12:03)
[2024-10-05 01:00] VITALS: BP 118/85; PULSE 60; RESP 19; TEMP 97.9; O2SAT 93
[2024-10-05 05:00] VITALS: BP 121/94; PULSE 114; RESP 18; TEMP 98.8; O2SAT 95
--- NOTE | 2024-10-05 07:09 | DVHPN2 ---
Progress Note - Dictate Date Seen: Oct 05, 2024 Medical Necessity Reason Pt with a Central, PICC or Fol: No vital signs Vital Sign Date Time Temp Pulse Resp B/P (MAP) Pulse Ox O2 Delivery O2 Flow Rate FiO2 10/05/24 05:00 98.8 114 18 121/94 (103) 95 98.8 10/04/24 20:00 Room Air* 0 21 Total Intake and Output 10/04/24 10/04/24 10/05/24 15:00 23:00 07:00 Intake Total 1000 ml 120 ml Output Total 1500 ml Balance -500 ml 120 ml medications Current Medications Medications Dose Ordered Sig/Norberto Route Start Time Stop Time Status Last Admin Dose Admin Furosemide 40 mg DAILY IV 10/01/24 10:00 10/03/24 10:26 40 MG Atorvastatin Calcium 40 mg HS PO 10/01/24 22:00 10/04/24 21:26 40 MG Amlodipine Besylate 5 mg DAILY PO 10/01/24 10:00 10/03/24 10:09 5 MG Clonidine HCl 0.1 mg Q4HP PRN PO 10/01/24 01:15 Apixaban 5 mg BID PO 10/01/24 10:00 10/04/24 21:28 5 MG Sodium Chloride 10 ml Q8HR IV 10/01/24 06:00 10/05/24 06:00 10 ML Acetaminophen/ Hydrocodone Bitart 1 tab Q4HP PRN PO 10/01/24 01:15 Ondansetron HCl 4 mg Q4HP PRN IV 10/01/24 01:15 Docusate Sodium 100 mg BIDPRN PRN PO 10/01/24 01:15 Acetaminophen 650 mg Q6HP PRN PO 10/01/24 01:15 10/04/24 21:28 650 MG Nitroglycerin 0.4 mg Q5MINP PRN SL 10/01/24 01:15 Morphine Sulfate 2 mg Q30M PRN IV 10/01/24 01:15 Sacubitril/ Valsartan 1 tab BID PO 10/02/24 10:00 10/03/24 10:10 1 TAB Amiodarone HCl 200 mg HS PO 10/02/24 22:00 10/04/24 21:28 200 MG Carvedilol 3.125 mg Q12HR PO 10/02/24 10:00 10/03/24 10:10 3.125 MG Empaglifozin 10 mg DAILY PO 10/02/24 10:00 10/03/24 10:08 10 MG Isosorbide Mononitrate 30 mg DAILY PO 10/03/24 10:00 10/03/24 10:07 30 MG Clopidogrel Bisulfate 75 mg DAILY PO 10/03/24 10:00 10/04/24 09:53 75 MG Spironolactone 25 mg DAILY PO 10/03/24 10:00 10/03/24 10:09 25 MG Atropine Sulfate 0.5 mg Q4HR PRN IV 10/03/24 16:45 Diagnostic Test (Pha) 1 strip ACHS 10/04/24 11:30 10/05/24 06:50 1 STRIP Insulin Human Regular AC SC 10/04/24 11:30 10/05/24 06:56 4 UNITS Insulin Human Regular HS SC 10/04/24 22:00 10/04/24 22:11 3 UNITS Dextrose 50 ml UD PRN IV 10/04/24 11:30 laboratory and microbiology Laboratory Tests 10/03/24 15:35 Test 10/03/24 15:35 Range/Units Serum Glucose 316 H 74-106 mg/dL Assessment/Plan This is a 69-year old female known outside to our practice who initially presented 09/30/2024 with reported chest versus epigastric discomfort (later resolved) with associated shortness of breath. Upon ED arrival initial 12-lead electrocardiogram had revealed sinus rhythm at 82 bpm, first degree AV block, with no evidence for acute ischemic changes. Serial HS troponin trend was found to be 31, 31, 26. Initial BNP level was found markedly elevated at 1724 which subsequent chest imaging had revealed cardiomegaly with evidence for pulmonary vascular congestion which she was initiated on IV diuretic therapy. Subsequent BNP level after 3 days of IV diuresis had improved to 601 with repeat chest imaging revealing cardiomegaly with mild congestion. Of note, patient was previously admitted to this facility with similar symptomatology which she was evaluated by cardiology services and later discharged 09/14/2024 in stable condition. Echocardiogram 09/11/2024 at that time had revealed an LVEF of 25-30% which had not changed from prior Echocardiogram findings 08/23/2024 (EF of 25- 30%). It is of note that in early August of 2024, the patient presented to [facility] for chest pain/inferior wall STEMI. At that time, other patient safety officer (Dr. Baird) performed cardiac catheterization for her. At that point, PCI (balloon angioplasty) of LCX/OM, followed by thrombectomy of the same vessels was performed. During the same procedure, patient had thrombus moving into LAD. At that point, thrombectomy of the LAD was also performed. It is of note that the patient had been non-compliant with her outside medications (as per daughter) prior to that visit (including Xarelto for atrial fibrillation) and that presentation could have been secondary to emboli into coronaries. It is of note that in February 2023 during [facility], the patient was found to have left atrial appendage thrombus. Recognizing current clinical presentation, presentation itself again questions possible non-adherence to prescribed out- patient medications including but not limited to diuretic therapy. Of note, cardiology services were involved by primary team request late within the admission for cardiac aspects of care. Past medical history includes diabetes mellitus, hypertension, hyperlipidemia, persistent AFib (should be on long-term anticoagulation, Xarelto), neuropathy, morbid obesity, hypothyroidism, nonalcoholic fatty liver disease, old history of ventral hernia, and old history of cholecystectomy//hernia repair and hysterectomy. 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 In February 2023, [facility]IO had revealed left atrial appendage thrombus. She did have ID/STEMI (inferior wall) on August 21, 2024. Does have history of noncompliance secondary to poor memory (as per daughter). Echocardiogram of January 2023 (performed in the office) revealed ejection fraction of 30% Echocardiogram of June 23, 2024 (performed in the office) revealed ejection fraction of 60-65%, mild biatrial enlargement, trace TR/MR Echocardiogram of August 23, 2024 (performed in [facility]) reported ejection fraction of 25-30%, severe left atrial enlargement, moderate right atrial enlargement, [id number] mitral regurgitation, right ventricular systolic pressure 46 mm Hg Echocardiogram of September 11, 2024 (performed in [facility]) reported ejection fraction of 25-30%, dilated LV, moderate LVH, RV dysfunction, biatrial enlargement, severe MAC, mild mitral stenosis, mild mitral regurgitation, trivial to small pericardial effusion, right ventricular systolic pressure 51mmHg Cardiac catheterization (status post STEMI) of August 21, 2024 (performed in [facility]): Status post PCI/balloon angioplasty of LCX/OM, followed by thrombectomy of the same vessels. During the same procedure thrombus went inside LAD and thrombectomy of LAD thrombus was also performed. Patient was started on Plavix/Xarelto at that point. Chest discomfort (HS troponins 31, 31, 26), considered atypical Acute on chronic systolic heart failure, LVEF of 25-30% (09/11/2024) Ischemic cardiomyopathy, status post previous balloon angioplasty of LCX/OM Paroxysmal atrial fibrillation (on chronic anticoagulation), Medical non-adherence Diabetes mellitus II CARDIAC SUGGESTIONS FOR MANAGEMENT: Recognizing clinical presentation, ACS at this point is not considered No indication for repeat ischemic workup at present time To proceed with optimized medical therapy and risk factor modification during the interim Recognizing comorbidities, continuation of long-term anticoagulation therapy is advised To proceed with GDMT for systolic heart failure as concurrent conditions permit Recognizing EF of 25-30%, continuation of [employer]ra life vest upon DC is advised Proceed with IV diuretic therapy (on Lasix 40mg twice daily as for now) Proceed with close observation for overt signs of fluid overload Proceed with strict intakes, outputs, and daily weights Add Metolazone as needed to augment diuresis Proceed with supplemental oxygen as warranted Trial Isosorbide 30mg once daily as for now Dual therapy (Eliquis + Plavix) Carvedilol 3.125mg twice daily Entresto 24-26mg twice daily Atorvastatin 40mg once daily Aldactone 25mg once daily Jardiance 10mg once daily Amiodarone 200mg q hs Has Life Vest Counseled at length on importance of adherence to medical therapy Proceed with close rate and rhythm surveillance Proceed with close hemodynamic surveillance Proceed with optimized blood pressure control Transfuse to sustain HGB level above 7.0 Sustain Magnesium level greater than 2.0 Sustain Potassium level greater than 4.0 Follow up renal function and electrolytes Management in telemetry Will proceed to follow from a cardiac perspective Further recommendations per clinical progression Cardiac dalton, is stable and can be followed as outpatient All available diagnostic labs, EKG's, and images were personally reviewed Plan of care discussed with and agreed upon by patient / primary RN Prognosis: Guarded Thank you for allowing me to participate in the care of this patient. Further recommendations based on patients clinical course and progression, primary attending, and other consultants. Will continue to follow with primary attending. If you have any questions or concerns, please do not hesitate to contact me. A total of 75 minutes was spent reviewing the patient record, examining the patient, making a diagnostic and therapeutic plan, discussing this plan with medical personnel, following up on diagnostic studies and following the patient for clinical stability excluding any and all procedures. At least 50% of this time was spent in direct, [id number] contact. Plan discussed with: Patient, Other (nurse) MAXIMINO KIRK MD Oct 05, 2024 07:09
--- NOTE | 2024-10-05 07:27 | ECG ---
[facility] Test Date: 2024-10-03 Test Time: 10:18:20 Pat Name: ERIC LINDA Department: Respiratoy Room: 0240T A Gender: F Medical Operations Supervisor: : 1955 Requested By: LENA PATTERSON Order Number: [id number] Reading MD: Ramana Martins Measurements Intervals [place] Rate: 73 P: -22 ND: 231 QRS: -45 QRSD: 106 T: 159 QT: 435 QTc: 480 Interpretive Statements Sinus rhythm Prolonged ND interval LAD, consider left anterior fascicular block LVH with secondary repolarization abnormality Electronically Signed On 10-05-2024 22:16:26 PDT by Ramana Martins Please click the below link to view image of tracing.
[2024-10-05 08:00] VITALS: PULSE 105
[2024-10-05 08:48] VITALS: BP 126/82; PULSE 54; RESP 17; TEMP 98; O2SAT 94
--- NOTE | 2024-10-05 10:39 | DVHPN2 ---
Reviewed: Care Plan, H&P, Labs, Medications, Previous Orders, Radiology Changes from previous H/P or p: No Changes Eyes: No Pain, No Vision change, No Conjunctivae inflammation, No Eyelid inflammation, No Other, No Redness ENT: No Ear pain, No Ear discharge, No Nose pain, No Nose discharge, No Nose congestion, No Mouth pain, No Mouth swelling, No Throat pain, No Throat swelling, No Other Cardiovascular: No Chest Pain, No Palpitations, No Orthopnea, No Paroxysmal Noc. Dyspnea, No Edema, No Lt Headedness, No Other Respiratory: No Cough, No Dry; Shortness of breath; No SOB with excertion, No Wheezing, No Hemoptysis, No Pleuritic Pain, No Sputum; Other (SOB at rest) Gastrointestinal: No Nausea, No Vomiting, No Abdominal Pain, No Diarrhea, No Constipation, No Melena, No Hematochezia, No Other Genitourinary: No Dysuria, No Frequency, No Incontinence, No Hematuria, No Retention, No Other Musculoskeletal: No other, No neck pain, No shoulder pain, No arm pain, No back pain, No hand pain, No leg pain, No foot pain Skin: No Rash, No Lesions, No Jaundice, No Bruising, No Other Objective Vitals Vital Signs Date Time Temp Pulse Resp B/P (MAP) Pulse Ox O2 Delivery O2 Flow Rate FiO2 10/05/24 08:48 98.0 54 17 126/82 (97) 94 98.0 10/04/24 20:00 Room Air* 0 21 Intake/Output Intake and Output 10/05/24 07:00 Intake Total 1120 ml Output Total 1500 ml Balance -380 ml Intake Oral 1120 ml Output Urine Total 1500 ml Medications Current Medications Medications Dose Ordered Sig/Norberto Route Start Time Stop Time Status Last Admin Dose Admin Atorvastatin Calcium 40 mg HS PO 10/01/24 22:00 10/04/24 21:26 40 MG Apixaban 5 mg BID PO 10/01/24 10:00 10/05/24 09:52 5 MG Sodium Chloride 10 ml Q8HR IV 10/01/24 06:00 10/05/24 06:00 10 ML Acetaminophen/ Hydrocodone Bitart 1 tab Q4HP PRN PO 10/01/24 01:15 Ondansetron HCl 4 mg Q4HP PRN IV 10/01/24 01:15 Docusate Sodium 100 mg BIDPRN PRN PO 10/01/24 01:15 Acetaminophen 650 mg Q6HP PRN PO 10/01/24 01:15 10/04/24 21:28 650 MG Nitroglycerin 0.4 mg Q5MINP PRN SL 10/01/24 01:15 Sacubitril/ Valsartan 1 tab BID PO 10/02/24 10:00 10/03/24 10:10 1 TAB Amiodarone HCl 200 mg HS PO 10/02/24 22:00 10/04/24 21:28 200 MG Carvedilol 3.125 mg Q12HR PO 10/02/24 10:00 10/03/24 10:10 3.125 MG Empaglifozin 10 mg DAILY PO 10/02/24 10:00 10/03/24 10:08 10 MG Isosorbide Mononitrate 30 mg DAILY PO 10/03/24 10:00 10/03/24 10:07 30 MG Clopidogrel Bisulfate 75 mg DAILY PO 10/03/24 10:00 10/05/24 09:53 75 MG Spironolactone 25 mg DAILY PO 10/03/24 10:00 10/03/24 10:09 25 MG Atropine Sulfate 0.5 mg Q4HR PRN IV 10/03/24 16:45 Diagnostic Test (Pha) 1 strip ACHS 10/04/24 11:30 10/05/24 06:50 1 STRIP Insulin Human Regular AC SC 10/04/24 11:30 10/05/24 06:56 4 UNITS Insulin Human Regular HS SC 10/04/24 22:00 10/04/24 22:11 3 UNITS Dextrose 50 ml UD PRN IV 10/04/24 11:30 Laboratory Results Laboratory Tests 10/03/24 15:35 Urinalysis Test 10/01/24 05:26 Urine Color Light-yellow (Yellow) Urine Clarity Clear (Clear) Urine pH 5.0 (5.0-9.0) Urine Specific [place] 1.011 (1.001-1.035) Urine Protein Trace (Negative) H Urine Ketones Negative (Negative) Urine Blood 2+ /uL (Negative) H Urine Nitrite Negative (Negative) Urine Bilirubin Negative (Negative) Urine Urobilinogen Normal mg/dL (Negative) Urine Leukocyte Esterase Negative /uL (Negative) Urine RBC 17 /hpf (0 - 4) Urine Microscopic WBC 1 /HPF (0-5) Urine Squamous Epithelial Cells None seen /hpf (<5) Urine Bacteria None seen /hpf (None Seen) Urine Glucose 4+ mg/dL (Normal) H Labs and/or images reviewed: Labs reviewed by me, Image(s) reviewed by me Assessment/Plan Assessment/Plan Noncardiac chest pain Acute exacerbation of congestive heart failure BNP 1724: Lasix, Jardiance, Coreg, amiodarone, Entresto, metolazone, ejection fraction 25 % on 09/11/2024, LifeVest recommended by Cardiology Atrial fibrillation: Eliquis , Plavix History of coronary artery disease status post stents in [facility] Diabetes Hypertension: Amlodipine Hypercholesterolemia: Lipitor History of [place] Acute hypokalemia potassium 3.0: Replace potassium Acute hypotension: Improved after albumin transfusion Altered mental status: CT brain negative Time spent 67 minutes Parish Ferrer [id number] Haley Patient is full code Patient has LifeVest RN Rika at bedside Plan discussed with: Patient My Orders Orders - LENA PATTERSON MD Procedure Category Date Status Time Glucose Blood PHA 10/04/24 In Process (Accu-Chek Comfort 11:30 Insulin R (Human) PHA 10/04/24 In Process (Insulin R) 11:30 Insulin R (Human) PHA 10/04/24 In Process (Insulin R) 22:00 Dextrose 50% Syringe PHA 10/04/24 In Process 11:30 Date of Service: Oct 05, 2024 Billing Provider: LENA PATTERSON MD Common Visit Codes: [id number] INP/OBS CARE(HIGH) LENA PATTERSON MD Oct 05, 2024 10:39
--- NOTE | 2024-10-05 10:53 | DVHDS2 ---
Discharge Summary Date of Admission Oct 01, 2024 at 01:09 Date of Discharge: Oct 05, 2024 Admitting Diagnosis Chest pain Wounds: none Labs/Diagnostic Data: Laboratory Results Test 10/05/24 06:48 10/03/24 15:35 10/03/24 06:00 10/03/24 01:45 POC Glucose 185 mg/dl (70-106) White Blood Count 5.6 10^3/uL (4.4-10.8) Red Blood Count 4.34 10^6/uL (4.0-5.20) Hemoglobin 13.2 g/dL (12.2-16.2) Hematocrit 40.2 % (36.0-46.0) Mean Corpuscular Volume 92.7 fL (80.0-100.0) Mean Corpuscular Hemoglobin 30.5 pg (28.0-32.0) Mean Corpuscular Hemoglobin Concent 32.9 g/dL (32.0-36.0) Red Cell Distribution Width 16.8 % (11.8-14.3) Platelet Count 299 10^3/uL (140-450) Mean Platelet Volume 7.2 fL (6.9-10.8) Neutrophils (%) (Auto) 73.4 % (37.0-80.0) Lymphocytes (%) (Auto) 12.7 % (10.0-50.0) Monocytes (%) (Auto) 11.3 % (0.0-12.0) Eosinophils (%) (Auto) 2.0 % (0.0-7.0) Basophils (%) (Auto) 0.6 % (0.0-2.0) Neutrophils # (Auto) 4.1 10 ^3/uL (1.6-8.6) Lymphocytes # (Auto) 0.7 10 ^3/uL (0.4-5.4) Monocytes # (Auto) 0.6 10 ^3/uL (0-1.3) Eosinophils # (Auto) 0.1 10 ^3/uL (0-0.8) Basophils # (Auto) 0 10 ^3/uL (0-0.2) Nucleated Red Blood Cells 0.1 % Sodium Level 137 mmol/L (136-145) Potassium Level 3.5 mmol/L (3.5-5.1) Chloride Level 95 mmol/L (98-107) Carbon Dioxide Level 31 mmol/L (20-31) Anion Gap 11 (5-15) Blood Urea Nitrogen 37 mg/dL (9-23) Creatinine 1.60 mg/dL (0.550-1.02) Glomerular Filtration Rate Calc 34 mL/min (>90) BUN/Creatinine Ratio 23.1 (10.0-20.0) Serum Glucose 316 mg/dL (74-106) Calcium Level 10.0 mg/dL (8.7-10.4) Magnesium Level 2.0 mg/dL (1.6-2.6) Influenza Type A Antigen Negative (Negative) Influenza Type B Antigen Negative (Negative) SARS-CoV-2 Antigen (Rapid) Negative (NEGATIVE) Test 10/02/24 06:01 10/01/24 05:26 10/01/24 01:36 10/01/24 00:35 Total Bilirubin 0.9 mg/dL (0.2-1.0) Aspartate Amino Transferase (AST) 22 U/L (<34) Alanine Aminotransferase (ALT) 26 U/L (7-40) Alkaline Phosphatase 77 U/L (46-116) B-Type Natriuretic Peptide 601.63 pg/mL (0-100) Total Protein 7.6 g/dL (5.7-8.2) Albumin 4.3 g/dL (3.2-4.8) Urine Color Light-yellow (Yellow) Urine Clarity Clear (Clear) Urine pH 5.0 (5.0-9.0) Urine Specific [place] 1.011 (1.001-1.035) Urine Protein Trace (Negative) Urine Ketones Negative (Negative) Urine Blood 2+ /uL (Negative) Urine Nitrite Negative (Negative) Urine Bilirubin Negative (Negative) Urine Urobilinogen Normal mg/dL (Negative) Urine Leukocyte Esterase Negative /uL (Negative) Urine RBC 17 /hpf (0 - 4) Urine Microscopic WBC 1 /HPF (0-5) Urine Squamous Epithelial Cells None seen /hpf (<5) Urine Bacteria None seen /hpf (None Seen) Urine Glucose 4+ mg/dL (Normal) Troponin I High Sensitivity 26 ng/L (</=34) Blood Gas Specimen Type Arterial Blood Gas Sample Site Right radial Blood Gas Patient Temperature 37.0 Arterial Blood Date Drawn Arterial Blood pH 7.441 (7.350-7.450) Arterial Blood Partial Pressure CO2 33.8 mmHg (32.0-45.0) Arterial Blood Partial Pressure O2 79.9 mmHg (83.0-108.0) Arterial Blood HCO3 22.5 mmol/L (21.0-28.0) Arterial Blood Oxygen Saturation 95.9 % (94.0-98.0) Arterial Blood Base Excess -1.1 mmol/L (-2.0-3.0) Arterial Blood Oxyhemoglobin 93.9 % (94.0-98.0) Arterial Blood Carboxyhemoglobin 1.8 % (0.5-1.5) Arterial Blood Methemoglobin 0.3 % (0.0-1.5) Donell Test Modified Blood Gas Total Hemoglobin 12.20 g/dL (12.0-16.0) Blood Gas Set Respiration Rate 12.0 Blood Gas Modality Mask - bipap Blood Gas Spontaneous Rate 26 FiO2 % 35.0 Blood Gas EPAP 5 Blood Gas IPAP 12 Blood Gas Comments Other Laboratory Tests 10/03/24 15:35 Brief Hx & Hospital Course: 49-year-old female with a history of diabetes hypertension hypercholesterolemia AMI coronary artery disease status post stents CHF on LifeVest for 25 percent ejection fraction noncompliant came in for chest pain. Troponin was negative found to be in acute exacerbation of congestive heart failure with the BNP 1 724 placed on Lasix Jardiance Coreg amiodarone Entresto metolazone. AFib was treated with the Eliquis and Plavix seen by child and adolescent psychiatrist Dr. Bowling. Acute hypokalemia resolved acute hypotension secondary to blood pressure medications resolved after albumin transfusion and blood pressure medications were adjusted. The patient is very noncompliant and does not take medications regularly and family requesting correction facility for rehab and medication compliance. Patient being discharged to [facility] general condition satisfactory at the time of discharge Consults/Reason for consult Cardiology Dr. Bowling Operations or Procedures Echocardiogram Condition at Discharge: Fair Final Diagnosis/Problems List Noncardiac chest pain Acute exacerbation of congestive heart failure BNP 1724: Lasix, Jardiance, Coreg, amiodarone, Entresto, metolazone, ejection fraction 25 % on 09/11/2024, LifeVest recommended by Cardiology Atrial fibrillation: Eliquis , Plavix History of coronary artery disease status post stents in [facility] Diabetes Hypertension: Amlodipine Hypercholesterolemia: Lipitor History of DC Acute hypokalemia potassium 3.0: Replace potassium Acute hypotension: Improved after albumin transfusion Altered mental status: CT brain negative Discharge Disposition: [facility] Facility Discharge Instruct/Medications Diet: Cardiac 2g Na,low cholest Activity: Light activity Follow Up/Referral: Follow up with the [facility] Medications: see list 39 (Time Taken for discharge summary 39 minutes) Discharge Statement: "Patient was advised to return to the ER or call 911 if any headaches, dizziness, shortness of breath, chest pain, abdominal pain, bleeding, fevers, or worsening of medical condition. Patient was counseled about treatment plan, medications, possible side effects, patientverbalized understanding. All questions were answered to the best of my ability. This discharge took greater then 30 minutes in planning, reviewing documentation, counseling the patient, and discussing with other team members." ASSESSMENT ASSESSMENT Hospital Course Improved marginally Assessment Noncardiac chest pain Acute exacerbation of congestive heart failure BNP 1724: Lasix, Jardiance, Coreg, amiodarone, Entresto, metolazone, ejection fraction 25 % on 09/11/2024, LifeVest recommended by Cardiology Atrial fibrillation: Eliquis , Plavix History of coronary artery disease status post stents in [facility] Diabetes Hypertension: Amlodipine Hypercholesterolemia: Lipitor History of DC Acute hypokalemia potassium 3.0: Replace potassium Acute hypotension: Improved after albumin transfusion Altered mental status: CT brain negative Date of Service: Oct 05, 2024 Billing Provider: LENA PATTERSON MD Common Visit Codes: 54909-SZN/OBS DISCH DAY >30min LENA PATTERSON MD Oct 05, 2024 10:53
--- NOTE | 2024-10-05 12:57 | ECG ---
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
[2024-10-05 13:00] VITALS: BP 139/95; PULSE 103; RESP 16; TEMP 98.1; O2SAT 95
[2024-10-05 17:00] VITALS: BP 114/84; PULSE 98; RESP 16; TEMP 98.1; O2SAT 94
== END 2024-10-05 17:25 | DRG 205 ==
LOC: ER 22:46 → OVERFLOW 10-01 01:09 → TELE-EAST 10-01 22:22
PROVIDERS: ADMIT Family Medicine; ATTEND Family Medicine
PROC: 5A09357 Assistance with Respiratory Ventilation, Less than 24 Consecutive Hours, Continuous Positive Airway Pressure (ICD-10-PCS; principal; 2024-09-30)
PROC: 5A09357 Assistance with Respiratory Ventilation, Less than 24 Consecutive Hours, Continuous Positive Airway Pressure (ICD-10-PCS; 2024-10-01)
DX: M94.0 Chondrocostal junction syndrome [Tietze] (principal); I50.43 Acute on chronic combined systolic (congestive) and diastolic (congestive) heart failure; J96.01 Acute respiratory failure with hypoxia; I48.19 Other persistent atrial fibrillation; I11.0 Hypertensive heart disease with heart failure; E87.6 Hypokalemia; E78.00 Pure hypercholesterolemia, unspecified; I25.10 Atherosclerotic heart disease of native coronary artery without angina pectoris; E11.9 Type 2 diabetes mellitus without complications; I51.3 Intracardiac thrombosis, not elsewhere classified; E03.9 Hypothyroidism, unspecified; I44.0 Atrioventricular block, first degree; I25.2 Old myocardial infarction; Z79.4 Long term (current) use of insulin; Z79.2 Long term (current) use of antibiotics; Z79.82 Long term (current) use of aspirin; Z79.84 Long term (current) use of oral hypoglycemic drugs; Z79.01 Long term (current) use of anticoagulants; Z98.891 History of uterine scar from previous surgery; Z90.49 Acquired absence of other specified parts of digestive tract; Z95.5 Presence of coronary angioplasty implant and graft; Z90.710 Acquired absence of both cervix and uterus; Z91.199 Patient's noncompliance with other medical treatment and regimen due to unspecified reason; I95.2 Hypotension due to drugs
CPT/HCPCS: 36415; 36600; 70450; 71045; 80048; 80053; 81001; 82805; 82962; 83735; 83880; 84132; 84484; 85025; 87426; 87804; 93005; 96374; 97163; 99291; G0378; J1815

== ENCOUNTER 2024-11-22 10:12 | Inpatient (IN) | payer MEDICARE, MEDICAID ==
[~2024-11-22] VITALS: Ht 152.4 cm; Wt 80.4 kg
--- NOTE | 2024-11-22 10:24 | ED.PDOC ---
HPI Comments HPI: Poor Historian. 69 y.o female coming from [facility], presents to the ED via EMS for a chief complaint of chest pain associated with SOB that started 30 minutes prior to arrival. Patient reports pain is across chest, is non radiating, and presents with active pain. EMS reports noting HR of 130-140 AFIB RVR on scene with SPO2 reading mid 80's RA. EMS administrated one dose NTG with ASA and placed patient on 2 liters O2 via NC with Saturation measuring 99% upon ED arrival. Patient continues to complaint of SOB. Patient mentions taking all her medications this morning. Patient denies any other associating symptoms. Vitals Temp: 98.9F HR: 130-140 AFIB ----- 130 HR on arrival BP: 154/78 RR: 18 SPO2: 99% on 2 liters O2 via NC Past Medical history: CHF, SC, COPD, AFIB Past Surgical history: PTCA. hernia repair, hysterectomy, cholecystectomy Medications: Amiodarone, Plavix, Eliquis, Entresto Social History: Denies smoking, ETOH, and drug use. Allergies: NKA REVIEW OF SYSTEMS: CONSTITUTIONAL: Denies acute: fever, diaphoresis, chills, HEAD: Denies acute: headache, photophobia Eyes: Denies acute: Double vision, vision loss, eye pain, eye discharge. EARS: Denies acute: tinnitus, hearing loss, ear discharge, ear pain, THROAT: Denies acute: sore throat, swelling, difficulty swallowing , pain with swallowing, change in voice. NECK: Denies acute: neck pain, neck swelling, stiff neck. HEART: Denies acute : palpitations, LUNGS: Denies acute: wheezing, cough, hemoptysis ABDOMEN: Denies acute: abdominal pain, Nausea, Vomiting, diarrhea, melena , hematemesis, hematochezia SKIN: Denies acute: rash, redness, lesions, itchiness. EXTREMITIES: Denies acute: calf pain, numbness, tingling, weakness, denies pain in extremity. Denies acute: Low back pain. Neuro: Denies acute: focal neurological deficit, motor or sensory focal neurological deficit, tremors, seizure like activity, confusion, dizziness, change in mental status, loss of bowel or bladder function, cauda equina like symptoms. : Denies acute: dysuria, hematuria, flank pain, increase in urinary frequency. PSYCH: Denies acute: hallucination, suicidal ideation, homicidal ideation. FEMALE: Denies acute: abnormal vaginal bleeding, foul odor, unusual discharge. PHYSICAL EXAM: General: ---[id number]-----acute distress, awake and alert. Head: normocephalic, atraumatic. Neck: supple, trachea is midline, no swelling. Throat: Normal phonation. Eyes:, no erythema, no purulent discharge, no proptosis, no icterus. Heart: Irregular rate and rhythm consistent with atrial fibrillation with RVR. noted mild murmur. Lungs: no apparent respiratory distress, Able to speak in full sentences. No wheezing, no rhonchi, mild crackles. No stridors Clear to auscultation bilaterally. Abdomen: non tender to palpation, non distended, soft, no guarding, no rebound, + bowel sounds. Neuro: Awake, Alert, oriented to name, self, situation, follows commands GCS=15. Speech is normal. Skin: no petechia, no purpura, no cyanosis, non-pale, not jaundice. Lower extremities: --2/4 b/l - Pitting edema no deformity, no focal swelling, no calf TTP. Makes eye contact. moves all four extremities. Face: no apparent facial droop. ED COURSE: DISCLAIMER: This medical document was created using an electronic medical record system with voice recognition software and computerized dictation system. Although this document has been carefully reviewed, there might still be some phonetic and typographical errors. Occasional wrong-word or "sound-alike" substitutions may have occurred due to the inherent limitations of voice recognition software. These areas are purely typographical due to imperfections of the software programs and do not reflect any compromise in the patient's medical care. Please read the chart carefully and recognize, using context, where these substitutions have occurred. Chief Complaint: Chest Pain Time Seen by MD: 10:19 Primary Care Provider: ? Reviewed Notes: Nurses Notes, Allergies Allergies: Coded Allergies: NO KNOWN ALLERGIES (Unverified , 08/20/19) Home Meds Active Scripts Sacubitril-Valsartan (Entresto 24-26 mg) 1 Tab Tab, 2 TAB PO BID, #180 TAB Prov:LENA PATTERSON MD 02/18/23 Carvedilol (Coreg) 12.5 Mg Tab, 1 TAB PO BID, #180 TAB 1 Refill Prov:LENA PATTERSON MD 02/18/23 Amiodarone Hcl (Amiodarone Hcl) 200 Mg Tab, 1 TAB PO BID, #180 TAB 5 Refills Prov:LENA PATTERSON MD 02/18/23 Reported Medications Patients Own Medication (PATIENTS OWN MEDICATION) ., 50 MG SC DAILY PTS OWN MED-OBTAIN FROM PT AND SEND TO RX DRUG:METHOTREXATE 50 MG FREQ:DAILY RX# EXP: DATE DISP: TECH: [facility]: 11/23/24 Latanoprost (LATANOPROST) 0.005 % Ryan[place], 1 DROP EACHEYE QPM, #7.5 ML 3 Refills 09/14/24 Insulin Glargine (Basaglar Kwikpen) 100 Unit/Ml Inj, 100 UNIT SC, INJ 09/14/24 Metoprolol Succinate (Metoprolol Succinate Er) 100 Mg Tab, 1 TAB PO DAILY 09/14/24 Sertraline Hcl (Sertraline Hcl) 25 Mg Tab, 1 TAB PO DAILY, #30 TAB 2 Refills 09/11/24 Folic Tdzo-Ivwuumtexj-Fddihhqh (Folbic) Tab, 1 TAB PO DAILY, #90 TAB 1 Refill 09/11/24 Clopidogrel Bisulfate (CLOPIDOGREL) 75 Mg Tab, 1 TAB PO DAILY, #90 TAB 1 Refill 09/11/24 Atorvastatin Calcium (ATORVASTATIN CALCIUM) 80 Mg Tab, 1 TAB PO DAILY, #30 TAB 5 Refills 09/11/24 Aspirin (Aspir-81) 81 Mg Tab, 1 TAB PO DAILY, #30 TAB 5 Refills 09/11/24 Gabapentin (Gabapentin) 100 Mg Cap, 1 CAP PO DAILY 02/13/23 Hydrochlorothiazide W/Triamter (Dyazide 37.5/25MG) 1 Cap Cp, 1 CAP PO DAILY 02/13/23 Amlodipine Besylate (Amlodipine Besylate) 10 Mg Tab, 0.5 TAB PO DAILY 02/13/23 Metformin Hydrochloride (Metformin Hcl) 1,000 Mg Tab, 1 TAB PO BID 02/13/23 Glipizide (Glipizide) 10 Mg Tab, 1 TAB PO BID 02/13/23 Dronedarone Hydrochloride (Multaq) 400 Mg Tab, 1 TAB PO BID 02/13/23 Empagliflozin (Jardiance) 10 Mg Tab, 1 TAB PO DAILY 02/13/23 Apixaban Base (ELIQUIS) 5 Mg Tab, 1 TAB PO BID 02/13/23 Discontinued Reported Medications Metoprolol Tartrate (LOPRESSOR TABLET) 50 Mg Tb, 1 TAB PO DAILY 02/13/23 Losartan Potassium (Losartan Potassium) 100 Mg Tab, 1 TAB PO DAILY 02/13/23 Discontinued Scripts Amoxicillin Trihydrate (Amoxicillin) 500 Mg Cap, 1 CAP PO TID, #30 CAP Prov:LENA PATTERSON MD 02/18/23 Rivaroxaban (XARELTO) 20 Mg Tab, 1 TAB PO DAILY, #90 TAB 3 Refills Prov:LENA PATTERSON MD 02/18/23 Information Source: Patient, Emergency Med Personnel Mode of Arrival: EMS Past Medical History PAST MEDICAL HISTORY: AFIB, CAD, CHF, DM, High Lipids, HTN, SC Surgical History: Cholecystectomy, , Hernia Repair, Hysterectomy, PTCA ENVIRONMENTAL HEALTH SANITARIAN History: No Pertinent ENVIRONMENTAL HEALTH SANITARIAN History Family History Family History: Family hx of heart zion Social History Smoker: Non-Smoker Alcohol: Denies ETOH Use Drugs: Denies Drug Use Lives In: Home Was a procedure done? Was a procedure done?: No CP Differential Dx Differential Diagnosis: A-fib, A-Flutter, Anxiety / Panic Attack, Atrial Dysrhythmia, Digoxin Toxicity, Electrolyte Disorder, Heart Failure, Hyperthyroidism, Hyperventilation, Hypoxia, MAT, SC, PSVT, Pulmonary Embolus, PVC's, Renal Failure, Sinus Tachycardia, Torsades De Pointes, Ventricular Dysrhythmia, V-Fib, V-Tach, WPW Differential Diagnosis: CHF Differential Diagnosis: Angina, Myocardial Infarction, Pericarditis, Other (Ddx include but not limitied to gastritis, musculoskeletal pain, radiculopathy, atypical chest pain, dissection, aneurysm, ACS, unstable angina, hiatal hernia, GERD, anxiety, costochondritis, PE, pneumothroax, neoplasm, cardiac ischemia, drug abuse, anemia.) X-Ray, Labs, Meds, VS Vital Signs Date Time Temp Pulse Resp B/P (MAP) Pulse Ox O2 Delivery O2 Flow Rate FiO2 11/22/24 13:25 115 15 126/92 (103) 98 11/22/24 13:09 116 11/22/24 12:22 113/80 11/22/24 12:00 113 17 125/92 (103) 96 11/22/24 12:00 200/207 11/22/24 12:00 114 125/87 11/22/24 11:19 134 140/99 11/22/24 11:05 130 11/22/24 11:05 130 11/22/24 10:50 Nasal Cannula* 2 28 11/22/24 10:29 98.9 130 18 154/78 99 98.9 Lab Test 11/22/24 14:04 11/22/24 11:35 Range/Units Troponin I High Sensitivity 39 *H 44 *H </=34 ng/L White Blood Count 7.0 4.4-10.8 10^3/uL Red Blood Count 4.09 4.0-5.20 10^6/uL Hemoglobin 12.1 L 12.2-16.2 g/dL Hematocrit 37.9 36.0-46.0 % Mean Corpuscular Volume 92.6 80.0-100.0 fL Mean Corpuscular Hemoglobin 29.6 28.0-32.0 pg Mean Corpuscular Hemoglobin Concent 31.9 L 32.0-36.0 g/dL Red Cell Distribution Width 17.3 H 11.8-14.3 % Platelet Count 281 140-450 10^3/uL Mean Platelet Volume 7.4 6.9-10.8 fL Neutrophils (%) (Auto) 80.2 H 37.0-80.0 % Lymphocytes (%) (Auto) 10.5 10.0-50.0 % Monocytes (%) (Auto) 8.2 0.0-12.0 % Eosinophils (%) (Auto) 0.5 0.0-7.0 % Basophils (%) (Auto) 0.6 0.0-2.0 % Neutrophils # (Auto) 5.6 1.6-8.6 10 ^3/uL Lymphocytes # (Auto) 0.7 0.4-5.4 10 ^3/uL Monocytes # (Auto) 0.6 0-1.3 10 ^3/uL Eosinophils # (Auto) 0 0-0.8 10 ^3/uL Basophils # (Auto) 0 0-0.2 10 ^3/uL Nucleated Red Blood Cells 0.4 % Sodium Level 140 136-145 mmol/L Potassium Level 4.9 3.5-5.1 mmol/L Chloride Level 107 98-107 mmol/L Carbon Dioxide Level 27 20-31 mmol/L Anion Gap 6 5-15 Blood Urea Nitrogen 20 9-23 mg/dL Creatinine 0.95 0.550-1.02 mg/dL Glomerular Filtration Rate Calc 64 >90 mL/min BUN/Creatinine Ratio 21.1 H 10.0-20.0 Serum Glucose 204 H 74-106 mg/dL Lactic Acid Level 1.7 0.4-2.0 mmol/L Calcium Level 8.9 8.7-10.4 mg/dL Magnesium Level 2.3 1.6-2.6 mg/dL Total Bilirubin 0.8 0.2-1.0 mg/dL Aspartate Amino Transferase (AST) 42 H 13-40 U/L Alanine Aminotransferase (ALT) 41 H 7-40 U/L Alkaline Phosphatase 102 46-116 U/L B-Type Natriuretic Peptide 2268.66 0-100 pg/mL Total Protein 7.5 5.7-8.2 g/dL Albumin 4.1 3.2-4.8 g/dL [place] [id number] Ph: [phone] DIAGNOSTIC IMAGING Diagnostic Imaging Report : [id number] Signed PATIENT: ERIC LINDA ACCT: [id number] UNIT: [id number] : 1955 LOC: ER ROOM / BED: / AGE / SEX: 69 / F ADM STATUS: REG ER SERVICE 1047 ORDERING PHYSICIAN: VAHE PHIPPS DO PROCEDURE(s): CXRP - CHEST PORTABLE REASON: CP, AFIB ORDER NUMBER(s): [id number], ACCESSION NUMBER(s): [id number] EXAM: XY CHEST PORTABLE Indication: CP, AFIB Technique: Single frontal view of the chest was obtained Comparison: XY CHEST XRAY 1 VIEW on DOS: 10/02/24, XY CHEST XRAY 1 VIEW on DOS: 09/30/24, CT CHEST WITHOUT CONTRAST on DOS: 09/10/24, XY CHEST TWO VIEWS ROUTINE on DOS: 09/10/24, XY CHEST PORTABLE on DOS: 12/09/23 FINDINGS: Lines and Tubes: None Lungs: Diffuse interstitial opacity. No pneumothorax. Cardiomediastinal contours: Cardiomegaly. Bones: No acute osseous abnormality. IMPRESSION: Cardiomegaly with pulmonary edema. ATED BY: DIANNE LEON MD DICTATED DATE/TIME: 11/22/24 113 SIGNED BY: DIANNE LEON MD SIGNED DATE/TIME: 11/22/241134 CC: Time of 1ST Reevaluation: 11:11 Reevaluation 1ST: Unchanged Patient Education/Counseling: Diagnosis, Treatment, Prognosis Family Education/Counseling: No Family Present Comments MDM: patient presented with the above HPI.--cardiac---workup was initiated. patient was found with the above mentioned diagnosis. the following medications were ordered: please refer to order lists of meds and tests obtained by myself Dr. Phipps. Patient ED course and VS have been stabilized. Patient has been reassessed in the ED and remained in a stable condition. Pertinent incidental findings were discussed with the patient and/or family. Patient/family voices understanding and is agreeable with plan. Patient has been observed in the ED adequate length of time to insure improvement/stability. Escalation of care considered: Consideration of escalation to observation or admission Patient was given Lopressor trial but did not significantly improve her AFib with RVR. Patient already takes amiodarone at home. She was started amiodarone drip. Given the patient's CHF exacerbation shortness of breath, she was given Lasix. Patient was given nitroglycerin sublingually for pulmonary edema and chest pain. Patient was ADMITTED to the medicine team for further evaluation and treatment of their presentation. All the reports of any imaging studies that were ordered by myself were reviewed by myself. Departure 1 Departure Time of Disposition: 10:53 Impression: Primary Impression: Chest pain Additional Impressions: Atrial fibrillation with RVR CHF exacerbation Pulmonary edema Disposition: ADMITTED INPATIENT Admit to: [facility] Condition: Guarded Discharged With: Self Critical Care Note Critical Care Time?: Yes (55 min-critical care time only) Heart Score Heart Score: Heart Score Response (Comments) Value History Highly Suspicious 2 EKG N/A 0 Age >65 2 Risk Factors >3 or Hx ASHD 2 Troponin 1-2 x's Normal limit 1 Total 7 I personally scribed for VA[facility] PHIPPS DO [facility] on 11/22/24 at 10:24. Electronically submitted by Moira Mendieta ([facility]). I personally scribed for VAHE PHIPPS DO ([email or web address]) on 11/22/24 at 11:11. Electronically submitted by Moiar Mendieta ([facility]). I personally scribed for VAHE PHIPPS DO ([email or web address]) on 11/22/24 at 12:44. Electronically submitted by Moira Mendieta ([facility]). VAHE PHIPPS DO Nov 22, 2024 10:24
[2024-11-22] MEDS: METOPROLOL TARTRATE 1MG/1ML-5ML VIAL IV ONE (11:19)
--- NOTE | 2024-11-22 11:37 | DVH ---
EXAM: XY CHEST PORTABLE Indication: CP, AFIB Technique: Single frontal view of the chest was obtained Comparison: XY CHEST XRAY 1 VIEW on DOS: 10/02/24, XY CHEST XRAY 1 VIEW on DOS: 09/30/24, CT CHEST WITH OUT CONTRAST on DOS: 09/10/24, XY CHEST TWO VIEWS ROUTINE on DOS: 09/10/24, XY CHEST PORTABLE on DOS: FINDINGS: Lines and Tubes: None Lungs: Diffuse interstitial opacity. No pneumothorax. Cardiomediastinal contours: Cardiomegaly. Bones: No acute osseous abnormality. IMPRESSION: Cardiomegaly with pulmonary edema.
[2024-11-22] MEDS: AMIODARONE BOLUS KIT 100 ML IV ONE (11:42)
[2024-11-22 11:53] LABS: Hematocrit 37.9 % (36.0-46.0); Hemoglobin 12.1 g/dL (12.2-16.2); Mean Corpuscular Hemoglobin 29.6 pg (28.0-32.0); Mean Corpuscular Volume 92.6 fL (80.0-100.0); Nucleated Red Blood Cells % 0.4 %
[2024-11-22] MEDS: NITROGLYCERIN 0.4 MG SL TAB SL ONE (12:00)
[2024-11-22] MEDS: AMIODARONE 360mg/200mL PREMIX 200 ML IV ONE (12:02)
[2024-11-22 12:05] LABS: Albumin 4.1 g/dL (3.2-4.8); Alkaline Phosphatase 102 U/L (46-116); Anion Gap 6 (5-15); BUN/Creatinine Ratio 21.1 (10.0-20.0); Blood Urea Nitrogen 20 mg/dL (9-23); Calcium 8.9 mg/dL (8.7-10.4); Carbon Dioxide 27 mmol/L (20-31); Chloride 107 mmol/L (98-107); Magnesium 2.3 mg/dL (1.6-2.6); Potassium 4.9 mmol/L (3.5-5.1); Sodium 140 mmol/L (136-145); Total Protein 7.5 g/dL (5.7-8.2)
[2024-11-22 12:06] LABS: Alanine Aminotransferase 41 U/L (7-40); Bilirubin, Total 0.8 mg/dL (0.2-1.0); Glucose 204 mg/dL (74-106)
[2024-11-22] MEDS: FUROSEMIDE 40 MG/4 ML VIAL IV ONE (12:22)
[2024-11-22] MEDS ORDERED: ACETAMINOPHEN 325 MG TAB PO PRN (14:15)
[2024-11-22] MEDS ORDERED: MORPHINE SULFATE INJ 2 MG/ml SYRG IV PRN (14:15)
[2024-11-22] MEDS ORDERED: ONDANSETRON HCL 4 MG/2 ML VIAL IV PRN (14:15)
[2024-11-22] MEDS ORDERED: NITROGLYCERIN 0.4 MG SL TAB SL PRN (14:15)
[2024-11-22] MEDS ORDERED: DOCUSATE SOD 100 MG CAP PO PRN (14:15)
--- NOTE | 2024-11-22 14:36 | DVHHP2 ---
History of Present Illness Reason for Visit: Chest pain, shortness of breath History of Present Illness Oliverio Raza is a 69-year-old female with past medical history of hypertension, hyperlipidemia, CHF, COPD, atrial fibrillation, coronary artery disease, and diabetes, who came to the hospital with complaints of shortness of breath and chest pain. Patient is a resident at [facility], she was complaining to staff about having chest pain and shortness of breath so they called EMS to bring her to the hospital. At my time of assessment she is altered and not able to answer all my questions. She is weaning a life vest, but doesn't seem to know how to use it or wear it. She is alert and oriented X 2. Cardiovascular: AFIB, CAD, CHF, HTN, hyperipidemia Pulmonary: COPD Endocrine: Diabetes Past Surgical History: Cholecystectomy, , Hysterectomy, Hernia Repair, Other (PTCA) Smoke: No ALCOHOL: none Drugs: None Lives: Long Term Review of Systems Constitutional: No: Fever, Chills, Sweats, Weakness, Malaise, Other Eyes: No: Pain, Vision change, Conjunctivae inflammation, Eyelid inflammation, Other, Redness ENT: No: Ear pain, Ear discharge, Nose pain, Nose discharge, Nose congestion, Mouth pain, Mouth swelling, Throat pain, Throat swelling, Other Respiratory: Shortness of breath; No: Cough, Dry, SOB with excertion, Wheezing, Hemoptysis, Pleuritic Pain, Sputum, Wheezing, Other Cardiovascular: Chest Pain, Edema (bilateral lower extremities); No: Palpitations, Orthopnea, Paroxysmal Noc. Dyspnea, Lt Headedness, Other Gastrointestinal: No: Nausea, Vomiting, Abdominal Pain, Diarrhea, Constipation, Melena, Hematochezia, Other Genitourinary: No Dysuria, No Frequency, No Incontinence, No Hematuria, No Retention, No Other Musculoskeletal: No: other, neck pain, shoulder pain, arm pain, back pain, hand pain, leg pain, foot pain Skin: No: Rash, Lesions, Jaundice, Bruising, Other Neurological: No: Weakness, Numbness, Incoordination, Change in speech, Confusion, Seizures, Other Allergies: Coded Allergies: NO KNOWN ALLERGIES (Unverified , 08/20/19) Exam Vital Signs Vital Signs Date Time Temp Pulse Resp B/P (MAP) Pulse Ox O2 Delivery O2 Flow Rate FiO2 11/22/24 13:25 115 15 126/92 (103) 98 11/22/24 10:50 Nasal Cannula* 2 28 11/22/24 10:29 98.9 98.9 General Appearance: Alert, Oriented X3, Cooperative HEENT: Atraumatic, PERRLA Respiratory: Clear to auscultation, Normal air movement Cardiovascular: Other (A-Fib RVR) Abdominal: Normal bowel sounds, Soft, No tenderness, No hepatospenomegaly Extremities: No clubbing, No cyanosis, No edema, Normal pulses, No tendernes s/swelling Skin: No rashes, No breakdown, No significant lesion Neuro: Normal gait, Normal speech, Strength at 5/5 X4 ext, Normal tone Psych/Mental Status: Mental status NL, Mood NL Labs/Xrays Labs Test 11/22/24 11:35 Range/Units White Blood Count 7.0 4.4-10.8 10^3/uL Red Blood Count 4.09 4.0-5.20 10^6/uL Hemoglobin 12.1 L 12.2-16.2 g/dL Hematocrit 37.9 36.0-46.0 % Mean Corpuscular Volume 92.6 80.0-100.0 fL Mean Corpuscular Hemoglobin 29.6 28.0-32.0 pg Mean Corpuscular Hemoglobin Concent 31.9 L 32.0-36.0 g/dL Red Cell Distribution Width 17.3 H 11.8-14.3 % Platelet Count 281 140-450 10^3/uL Mean Platelet Volume 7.4 6.9-10.8 fL Neutrophils (%) (Auto) 80.2 H 37.0-80.0 % Lymphocytes (%) (Auto) 10.5 10.0-50.0 % Monocytes (%) (Auto) 8.2 0.0-12.0 % Eosinophils (%) (Auto) 0.5 0.0-7.0 % Basophils (%) (Auto) 0.6 0.0-2.0 % Neutrophils # (Auto) 5.6 1.6-8.6 10 ^3/uL Lymphocytes # (Auto) 0.7 0.4-5.4 10 ^3/uL Monocytes # (Auto) 0.6 0-1.3 10 ^3/uL Eosinophils # (Auto) 0 0-0.8 10 ^3/uL Basophils # (Auto) 0 0-0.2 10 ^3/uL Nucleated Red Blood Cells 0.4 % Sodium Level 140 136-145 mmol/L Potassium Level 4.9 3.5-5.1 mmol/L Chloride Level 107 98-107 mmol/L Carbon Dioxide Level 27 20-31 mmol/L Anion Gap 6 5-15 Blood Urea Nitrogen 20 9-23 mg/dL Creatinine 0.95 0.550-1.02 mg/dL Glomerular Filtration Rate Calc 64 >90 mL/min BUN/Creatinine Ratio 21.1 H 10.0-20.0 Serum Glucose 204 H 74-106 mg/dL Lactic Acid Level 1.7 0.4-2.0 mmol/L Calcium Level 8.9 8.7-10.4 mg/dL Magnesium Level 2.3 1.6-2.6 mg/dL Total Bilirubin 0.8 0.2-1.0 mg/dL Aspartate Amino Transferase (AST) 42 H 13-40 U/L Alanine Aminotransferase (ALT) 41 H 7-40 U/L Alkaline Phosphatase 102 46-116 U/L Troponin I High Sensitivity 44 *H </=34 ng/L B-Type Natriuretic Peptide 2268.66 0-100 pg/mL Total Protein 7.5 5.7-8.2 g/dL Albumin 4.1 3.2-4.8 g/dL EXAM: XY CHEST PORTABLE FINDINGS: Lines and Tubes: None Lungs: Diffuse interstitial opacity. No pneumothorax. Cardiomediastinal contours: Cardiomegaly. Bones: No acute osseous abnormality. IMPRESSION: Cardiomegaly with pulmonary edema. SEPSIS Sepsis Screen Date sepsis recognized/suspect: Nov 22, 2024 Time Sepsis recognized/suspect: 1051 Recent Procedure: No On Antibiotic Therapy: No Respiratory Rate >20: No Heart Rate >90: Yes Temp<36 C (96.8 F) or >38.3 C: No SBP <90 or MAP <65 mmHG: No New Acute Mental Status Change: No Is the patient on CPAP, BIPAP,: No Physician Orders Ecological [employer]ist (11/22/24 ) Urinalysis (11/22/24 10:47) Chest Portable (11/22/24 10:47) Electrocardigram (11/22/24 10:47) Troponin-I Hs (11/22/24 11:47) Troponin-I Hs (11/22/24 13:47) Electrocardigram (11/22/24 11:47) Electrocardigram (11/22/24 13:47) Amiodarone 360mg/200ml Premix (Nexterone (11/22/24 11:45) Amiodarone 360mg/200ml Premix (Nexterone (11/22/24 17:45) Rt To Be Present W Bipap (11/22/24 12:31) Admit (11/22/24 14:06) Code Status (11/22/24 14:06) Hydrocodone-Acet 5/325mg Tab (Cardale 5/32 (11/22/24 14:15) Ondansetron Hcl (Zofran) (11/22/24 14:15) Docusate Sodium Capsule (Colace Capsule) (11/22/24 14:15) Complete Blood Count (11/23/24 04:00) Comprehensive Metabolic Panel (11/23/24 04:00) Cardiac Diet-2gna,Lofat,Lochol (11/22/24 Dinner) Condition: Serious (11/22/24 14:06) Acetaminophen Tablet (Tylenol Tablet) (11/22/24 14:15) Nitroglycerin Sublingual (Ntrostat Subli (11/22/24 14:15) Morphine Sulfate Injection (11/22/24 14:15) Stat Ekg For Chest Pain (11/22/24 14:06) Notify Md Of Changes From Base (11/22/24 14:06) Group Captain For 24 Hours (11/22/24 14:06) Emergency Dysrhythmia Protocol (11/22/24 14:06) Rhythm Strips Once Every Shift (11/22/24 14:06) Oxygen By Nasal Cannula (11/22/24 14:06) Vital Signs Date Time Temp Pulse Resp B/P (MAP) Pulse Ox O2 Delivery O2 Flow Rate FiO2 11/22/24 13:25 115 15 126/92 (103) 98 11/22/24 12:22 113/80 11/22/24 12:00 200/207 11/22/24 12:00 114 125/87 11/22/24 11:19 134 140/99 11/22/24 11:05 130 11/22/24 11:05 130 11/22/24 10:50 Nasal Cannula* 2 28 11/22/24 10:29 98.9 130 18 154/78 99 98.9 Laboratory Tests Test 11/22/24 11:35 Lactic Acid Level 1.7 mmol/L (0.4-2.0) White Blood Count 7.0 10^3/uL (4.4-10.8) Medications Medications Dose Ordered Sig/Norbetro Route Start Time Stop Time Status Last Admin Dose Admin Amiodarone HCl 100 ml @ 600 mls/hr ONCE ONCE IV 11/22/24 11:30 11/22/24 11:39 DC 11/22/24 11:42 600 MLS/HR Furosemide 40 mg ONCE ONCE IV 11/22/24 12:00 11/22/24 12:01 DC 11/22/24 12:22 40 MG Metoprolol Tartrate 5 mg ONCE ONCE IV 11/22/24 11:00 11/22/24 11:01 DC 11/22/24 11:19 5 MG Nitroglycerin 0.4 mg ONCE ONCE SL 11/22/24 12:00 11/22/24 12:01 DC 11/22/24 12:00 0.4 MG Assessment/Plan Assessment/Plan Assessment: Atrial fibrillation with RVR, Cardiomegaly, Pulmonary edema, Hypertension, Hyperlipidemia, Coronary artery disease, Atrial fibrillation, Plan: Admit to Tele, Cardiology consult, IV amiodarone, IV Lasix, Manage/Monitor electrolytes closely, Accu checks Q AC&HS with sliding scale, Home medications reconciled, Plan discussed with: Patient My Orders Orders - ERWIN AMARO Procedure Category Date Status Time Admit ADMIT 11/22/24 Verified 14:06 Code Status CODE 11/22/24 Verified 14:06 Hydrocodone-Acet PHA 11/22/24 Verified 5/325mg Tab (Cardale 14:15 Ondansetron Hcl PHA 11/22/24 Verified (Zofran) 14:15 Docusate Sodium PHA 11/22/24 Verified Capsule (Colace 14:15 Complete Blood Count LAB 11/23/24 Verified 04:00 Comprehensive LAB 11/23/24 Verified Metabolic Panel 04:00 Cardiac DIET 11/22/24 Verified Diet-2gna,Lofat,Lochol Dinner Condition: Serious MARINO 11/22/24 Verified 14:06 Acetaminophen Tablet PHA 11/22/24 Verified (Tylenol Tablet) 14:15 Nitroglycerin [facility] 11/22/24 Verified Sublingual (Ntrostat 14:15 Morphine Sulfate [facility] 11/22/24 Verified Injection 14:15 Stat Ekg For Chest [facility] 11/22/24 Verified Pain 14:06 Notify Md Of Changes [facility] 11/22/24 Verified From Base 14:06 Group Captain For [facility] 11/22/24 Verified 24 Hours 14:06 Emergency Dysrhythmia [facility] 11/22/24 Verified Protocol 14:06 Rhythm Strips Once [facility] 11/22/24 Verified Every Shift 14:06 Oxygen By Nasal 11/22/24 Verified Cannula 14:06 Date of Service: Nov 22, 2024 Billing Provider: ERWIN AMARO Common Visit Codes: [id number] INP/OBS CARE (MOD) ERWIN AMARO Nov 22, 2024 14:36
[2024-11-22 14:50] VITALS: RESP 16
[2024-11-22] MEDS: AMIODARONE 360mg/200mL PREMIX 200 ML IV SCH (16:47)
[2024-11-22 17:00] VITALS: BP 125/85; PULSE 111; RESP 16; O2SAT 93
[2024-11-22] MEDS ORDERED: DEXTROSE (50%) 50ML SYRG IV PRN (17:15)
[2024-11-22] MEDS ORDERED: glipiZIDE 5 MG TAB PO SCH (18:00)
[2024-11-22] MEDS: HYDROcodone-ACET 5/325MG TAB PO PRN (18:23)
--- NOTE | 2024-11-22 19:41 | DVHINCON2 ---
Date of service: Nov 22, 2024 History of Present Illness HPI Patient is a 69-year-old female who presented to the hospital with chest discomfort and shortness of breath. EMS found the patient with atrial fibrillation with RVR and heart rate in the 130s and oxygen saturation of 80s. Patient is admitted with acute respiratory failure and atrial fibrillation with RVR. Cardiology is involved for cardiac aspects of care. Patient is known to our practice from before. It is of note that in early August of 2024, the patient presented to [facility] for chest pain/inferior wall STEMI. At that time, other financial coach (Dr. Baird) performed cardiac catheterization for her. At that point, PCI (balloon angioplasty) of LCX/OM, followed by thrombectomy of the same vessels was performed. During the same procedure, patient had thrombus moving into LAD. At that point, thrombectomy of the LAD was also performed. It is of note that the patient had been non-compliant with her outside medications (as per daughter) prior to that visit (including Xarelto for atrial fibrillation) and that presentation could have been secondary to emboli into coronaries. It is of note that in February 2023 during [facility], the patient was found to have left atrial appendage thrombus. Home Meds Active Scripts Amoxicillin Trihydrate (Amoxicillin) 500 Mg Cap, 1 CAP PO TID, #30 CAP Prov:LENA PATTERSON MD 02/18/23 Sacubitril-Valsartan (Entresto 24-26 mg) 1 Tab Tab, 2 TAB PO BID, #180 TAB Prov:LENA PATTERSON MD 02/18/23 Carvedilol (Coreg) 12.5 Mg Tab, 1 TAB PO BID, #180 TAB 1 Refill Prov:LENA PATTERSON MD 02/18/23 Rivaroxaban (XARELTO) 20 Mg Tab, 1 TAB PO DAILY, #90 TAB 3 Refills Prov:LENA PATTERSON MD 02/18/23 Amiodarone Hcl (Amiodarone Hcl) 200 Mg Tab, 1 TAB PO BID, #180 TAB 5 Refills Prov:LENA PATTERSON MD 02/18/23 Reported Medications Latanoprost (LATANOPROST) 0.005 % Ryanne, 1 DROP EACHEYE QPM, #7.5 ML 3 Refills 09/14/24 Methotrexate (Methotrexate) 2.5 Mg Tab, 50 MG SC, MG 09/14/24 Insulin Glargine (Basaglar Kwikpen) 100 Unit/Ml Inj, 100 UNIT SC, INJ 09/14/24 Metoprolol Succinate (Metoprolol Succinate Er) 100 Mg Tab, 1 TAB PO DAILY 09/14/24 Sertraline Hcl (Sertraline Hcl) 25 Mg Tab, 1 TAB PO DAILY, #30 TAB 2 Refills 09/11/24 Folic Aexd-Qfawattjib-Ulolxhqn (Folbic) Tab, 1 TAB PO DAILY, #90 TAB 1 Refill 09/11/24 Clopidogrel Bisulfate (CLOPIDOGREL) 75 Mg Tab, 1 TAB PO DAILY, #90 TAB 1 Refill 09/11/24 Atorvastatin Calcium (ATORVASTATIN CALCIUM) 80 Mg Tab, 1 TAB PO DAILY, #30 TAB 5 Refills 09/11/24 Aspirin (Aspir-81) 81 Mg Tab, 1 TAB PO DAILY, #30 TAB 5 Refills 09/11/24 Gabapentin (Gabapentin) 100 Mg Cap, 1 CAP PO DAILY 02/13/23 Hydrochlorothiazide W/Triamter (Dyazide 37.5/25MG) 1 Cap Cp, 1 CAP PO DAILY 02/13/23 Amlodipine Besylate (Amlodipine Besylate) 10 Mg Tab, 0.5 TAB PO DAILY 02/13/23 Metoprolol Tartrate (LOPRESSOR TABLET) 50 Mg Tb, 1 TAB PO DAILY 02/13/23 Methotrexate (Methotrexate Sodium) 2.5 Mg Tab, 2.5 MG PO DAILY 02/13/23 Metformin Hydrochloride (Metformin Hcl) 1,000 Mg Tab, 1 TAB PO BID 02/13/23 Losartan Potassium (Losartan Potassium) 100 Mg Tab, 1 TAB PO DAILY 02/13/23 Glipizide (Glipizide) 10 Mg Tab, 1 TAB PO BID 02/13/23 Dronedarone Hydrochloride (Multaq) 400 Mg Tab, 1 TAB PO BID 02/13/23 Empagliflozin (Jardiance) 10 Mg Tab, 1 TAB PO DAILY 02/13/23 Apixaban Base (ELIQUIS) 5 Mg Tab, 1 TAB PO BID 02/13/23 Past Medical History Others Past medical history includes diabetes mellitus, hypertension, hyperlipidemia, persistent AFib (should be on long-term anticoagulation, Xarelto), neuropathy, morbid obesity, hypothyroidism, nonalcoholic fatty liver disease, old history of ventral hernia, and old history of cholecystectomy//hernia repair and hysterectomy. 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 In February 2023, M[facility]IO had revealed left atrial appendage thrombus. She did have VT/STEMI (inferior wall) on August 21, 2024. Does have history of noncompliance secondary to poor memory (as per daughter). Patient Family History: Patient reports no known family medical history. Smoker: No Hx (Negative) Review of Systems Pulmonary/Respiratory: Dyspnea Cardiovascular: Palpitations All Other Systems Fourteen point review of system was performed. Relevant findings as per above and as per HPI. Otherwise negative H&P Exam Vital Signs Vital Signs Date Time Temp Pulse Resp B/P (MAP) Pulse Ox O2 Delivery O2 Flow Rate FiO2 11/22/24 17:00 111 16 125/85 (98) 93 11/22/24 14:50 Room Air* 0 21 11/22/24 10:29 98.9 98.9 General Appeara: Well developed Head Exam: Normal inspection Eye Exam: bilateral eye PERRL Pulmonary/Respiratory: Rhonci Cardiovascular/Chest: Systolic murmur, Irregularly irregular Peripheral Pulses: 2+ carotid (R), 2+ carotid (L), 2+ femoral (R), 2+ femoral (L), 2+ dorsalis pedis (R), 2+ dorsalis pedis (L), 2+ Radial (R), 2+ Radial (L) Abdominal Exam: Normal bowel sounds, Soft Neuro/Mental St: Alert, Oriented Appearance: Appropriate appearance Eye contact/ Speech: Cooperative Labs/Xrays Labs Test 11/22/24 16:40 11/22/24 11:35 Range/Units Troponin I High Sensitivity 35 *H </=34 ng/L White Blood Count 7.0 4.4-10.8 10^3/uL Red Blood Count 4.09 4.0-5.20 10^6/uL Hemoglobin 12.1 L 12.2-16.2 g/dL Hematocrit 37.9 36.0-46.0 % Mean Corpuscular Volume 92.6 80.0-100.0 fL Mean Corpuscular Hemoglobin 29.6 28.0-32.0 pg Mean Corpuscular Hemoglobin Concent 31.9 L 32.0-36.0 g/dL Red Cell Distribution Width 17.3 H 11.8-14.3 % Platelet Count 281 140-450 10^3/uL Mean Platelet Volume 7.4 6.9-10.8 fL Neutrophils (%) (Auto) 80.2 H 37.0-80.0 % Lymphocytes (%) (Auto) 10.5 10.0-50.0 % Monocytes (%) (Auto) 8.2 0.0-12.0 % Eosinophils (%) (Auto) 0.5 0.0-7.0 % Basophils (%) (Auto) 0.6 0.0-2.0 % Neutrophils # (Auto) 5.6 1.6-8.6 10 ^3/uL Lymphocytes # (Auto) 0.7 0.4-5.4 10 ^3/uL Monocytes # (Auto) 0.6 0-1.3 10 ^3/uL Eosinophils # (Auto) 0 0-0.8 10 ^3/uL Basophils # (Auto) 0 0-0.2 10 ^3/uL Nucleated Red Blood Cells 0.4 % Sodium Level 140 136-145 mmol/L Potassium Level 4.9 3.5-5.1 mmol/L Chloride Level 107 98-107 mmol/L Carbon Dioxide Level 27 20-31 mmol/L Anion Gap 6 5-15 Blood Urea Nitrogen 20 9-23 mg/dL Creatinine 0.95 0.550-1.02 mg/dL Glomerular Filtration Rate Calc 64 >90 mL/min BUN/Creatinine Ratio 21.1 H 10.0-20.0 Serum Glucose 204 H 74-106 mg/dL Lactic Acid Level 1.7 0.4-2.0 mmol/L Calcium Level 8.9 8.7-10.4 mg/dL Magnesium Level 2.3 1.6-2.6 mg/dL Total Bilirubin 0.8 0.2-1.0 mg/dL Aspartate Amino Transferase (AST) 42 H 13-40 U/L Alanine Aminotransferase (ALT) 41 H 7-40 U/L Alkaline Phosphatase 102 46-116 U/L B-Type Natriuretic Peptide 2268.66 0-100 pg/mL Total Protein 7.5 5.7-8.2 g/dL Albumin 4.1 3.2-4.8 g/dL Assessment/Plan Plan Patient is a 69-year-old female who presented to the hospital with chest discomfort and shortness of breath. EMS found the patient with atrial fibrillation with RVR and heart rate in the 130s and oxygen saturation of 80s. Patient is admitted with acute respiratory failure and atrial fibrillation with RVR. Cardiology is involved for cardiac aspects of care. Patient is known to our practice from before. It is of note that in early August of 2024, the patient presented to [facility] for chest pain/inferior wall STEMI. At that time, other financial coach (Dr. Baird) performed cardiac catheterization for her. At that point, PCI (balloon angioplasty) of LCX/OM, followed by thrombectomy of the same vessels was performed. During the same procedure, patient had thrombus moving into LAD. At that point, thrombectomy of the LAD was also performed. It is of note that the patient had been non-compliant with her outside medications (as per daughter) prior to that visit (including Xarelto for atrial fibrillation) and that presentation could have been secondary to emboli into coronaries. It is of note that in February 2023 during [facility], the patient was found to have left atrial appendage thrombus. Not in acute distress. Not using accessory muscles of breathing. Mucosa is pink and wet. No carotid bruit. No goiter. Lungs are clear to auscultation. Cardiac: Irregular, no thrill. S3 gallop is heard. 3+ systolic murmur in the apex is heard. Abdomen is soft. There is no gross mass. There is no hepatomegaly. Extremities reveal 1+ edema bilaterally. Past medical history includes diabetes mellitus, hypertension, hyperlipidemia, persistent AFib (should be on long-term anticoagulation, Xarelto), neuropathy, morbid obesity, hypothyroidism, nonalcoholic fatty liver disease, old history of ventral hernia, and old history of cholecystectomy//hernia repair and hysterectomy. 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 In February 2023, M[facility]IO had revealed left atrial appendage thrombus. She did have VT/STEMI (inferior wall) on August 21, 2024. Does have history of noncompliance secondary to poor memory (as per daughter). Echocardiogram of January 2023 (performed in the office) revealed ejection fraction of 30% Echocardiogram of June 23, 2024 (performed in the office) revealed ejection fraction of 60-65%, mild biatrial enlargement, trace TR/MR Echocardiogram of August 23, 2024 (performed in [facility]) reported ejection fraction of 25-30%, severe left atrial enlargement, moderate right atrial enlargement, [id number] mitral regurgitation, right ventricular systolic pressure 46 mm Hg Echocardiogram of September 11, 2024 (performed in [facility]) reported ejection fraction of 25-30%, dilated LV, moderate LVH, RV dysfunction, biatrial enlargement, severe MAC, mild mitral stenosis, mild mitral regurgitation, trivial to small pericardial effusion, right ventricular systolic pressure 51mmHg Cardiac catheterization (status post STEMI) of August 21, 2024 (performed in [facility]): Status post PCI/balloon angioplasty of LCX/OM, followed by thrombectomy of the same vessels. During the same procedure thrombus went inside LAD and thrombectomy of LAD thrombus was also performed. Patient was started on Plavix/Xarelto at that point. WBC: 7.0 Hemoglobin: 12.1 BNP: 2268.66 Troponin (high sensitive): 44 - 39 - 35 Creatinine: 0.95 Potassium: 4.9 Chest x-ray revealed: Patient is a 69-year-old female who presented with shortness of breath and chest discomfort. She is found to have atrial fibrillation with RVR. Has been kept on anticoagulation as outpatient. Chest discomfort, considered atypical Acute on chronic systolic heart failure, LVEF of 25-30% (09/11/2024) Ischemic cardiomyopathy, status post previous balloon angioplasty of LCX/OM Paroxysmal atrial fibrillation (on chronic anticoagulation), Medical non-adherence Diabetes mellitus II CARDIAC SUGGESTIONS FOR MANAGEMENT: Recognizing clinical presentation, ACS at this point is not considered No indication for repeat ischemic workup at present time To proceed with optimized medical therapy and risk factor modification during the interim Recognizing comorbidities, continuation of long-term anticoagulation therapy is advised To proceed with GDMT for systolic heart failure as concurrent conditions permit Recognizing EF of 25-30%, continuation of [employer] life vest upon DC is advised Proceed with IV diuretic therapy (on Lasix 40mg twice daily as for now) Proceed with close observation for overt signs of fluid overload Proceed with strict intakes, outputs, and daily weights Proceed with supplemental oxygen as warranted Dual therapy (Eliquis + Plavix) Toprol- XL: 100 mg daily Atorvastatin 40mg once daily Aldactone 25mg once daily Jardiance 10mg once daily Hold Losartan Entresto: 24/26 mg PO BID Eliquis: 5 mg PO BID, Plavix: 75 mg daily (no need for ASA) IV Amiodarone for now Echocardiogram Has Life Vest Counseled at length on importance of adherence to medical therapy Proceed with close rate and rhythm surveillance Proceed with close hemodynamic surveillance Proceed with optimized blood pressure control Transfuse to sustain HGB level above 7.0 Sustain Magnesium level greater than 2.0 Sustain Potassium level greater than 4.0 Follow up renal function and electrolytes Management in telemetry Will proceed to follow from a cardiac perspective Further recommendations per clinical progression Thank you for consultation Further evaluation and management depends on the above and clinical course A total of 75 minutes was spent reviewing the patient record, examining the patient, making a diagnostic and therapeutic plan, discussing this plan with medical personnel, following up on diagnostic studies and following the patient for clinical stability excluding any and all procedures. At least 50% of this time was spent in direct, [id number] contact. Thank you for allowing me to participate in this patient's care. Further recommendations will depend on patient's clinical course. Please do not hesitate to contact me if you have any questions or concerns. This medical document was created using electronic medical record system with [employer] computerized dictation system. Although this document has been carefully reviewed, there may still be some phonetic and typographical errors. These areas are purely typographical due to the imperfection of the software programs, and do not reflect any compromise in the patient's medical care. Plan discussed with: Patient, Other (nurse) MAXIMINO KIRK MD Nov 22, 2024 19:41
[2024-11-22] MEDS: ACCU-CHEK COMFORT CURVE STRIP VI SCH (21:25)
[2024-11-22] MEDS: APIXABAN 5 MG TAB PO SCH (21:26)
[2024-11-22] MEDS: ATORVASTATIN 20 MG TAB PO SCH (21:26)
[2024-11-22] MEDS: SACUBITRIL-VALSARTAN 24mg/26mg TAB PO SCH (21:30)
[2024-11-22] MEDS: InsuLIN REG 1unit/0.01ml Soln (100units/ml) SC SCH (21:32)
[2024-11-22 21:33] VITALS: BP 132/87; PULSE 115; RESP 16; O2SAT 97
[2024-11-22 23:34] VITALS: PULSE 120; RESP 24; O2SAT 98
[2024-11-23] VITALS (8 sets, daily range): BP systolic 130–164; BP diastolic 81–100; PULSE 101–120; RESP 18–24; TEMP 97.3–98.8; O2SAT 90–98
[2024-11-23] MEDS: glipiZIDE 5 MG TAB PO SCH (06:14)
[2024-11-23] MEDS: InsuLIN REG 1unit/0.01ml Soln (100units/ml) SC SCH (06:15)
[2024-11-23 06:57] LABS: Hematocrit 35.7 % (36.0-46.0); Hemoglobin 11.6 g/dL (12.2-16.2); Mean Corpuscular Hemoglobin 29.5 pg (28.0-32.0); Mean Corpuscular Volume 90.7 fL (80.0-100.0); Nucleated Red Blood Cells % 0.4 %
[2024-11-23 07:17] LABS: Albumin 3.8 g/dL (3.2-4.8); Alkaline Phosphatase 109 U/L (46-116); Anion Gap 8 (5-15); BUN/Creatinine Ratio 24.2 (10.0-20.0); Carbon Dioxide 28 mmol/L (20-31); Chloride 102 mmol/L (98-107); Potassium 4.5 mmol/L (3.5-5.1); Sodium 138 mmol/L (136-145); Total Protein 7.1 g/dL (5.7-8.2)
[2024-11-23 07:18] LABS: Bilirubin, Total 0.8 mg/dL (0.2-1.0)
[2024-11-23 07:20] LABS: Alanine Aminotransferase 72 U/L (7-40); Blood Urea Nitrogen 24 mg/dL (9-23); Calcium 8.7 mg/dL (8.7-10.4); Glucose 217 mg/dL (74-106)
--- NOTE | 2024-11-23 07:46 | DVHPN2 ---
Progress Note - Dictate Date Seen: Nov 23, 2024 Medical Necessity Reason Pt with a Central, PICC or Fol: No vital signs Vital Sign Date Time Temp Pulse Resp B/P (MAP) Pulse Ox O2 Delivery O2 Flow Rate FiO2 11/23/24 05:00 98.8 113 22 134/91 (105) 91 98.8 11/22/24 23:34 Nasal Cannula* 2 28 Total Intake and Output 11/22/24 11/22/24 11/23/24 15:00 23:00 07:00 Intake Total 0 ml Balance 0 ml medications Current Medications Medications Dose Ordered Sig/Norberto Route Start Time Stop Time Status Last Admin Dose Admin Acetaminophen/ Hydrocodone Bitart 1 tab Q4HP PRN PO 11/22/24 14:15 11/23/24 00:21 1 TAB Ondansetron HCl 4 mg Q4HP PRN IV 11/22/24 14:15 Docusate Sodium 100 mg BIDPRN PRN PO 11/22/24 14:15 Acetaminophen 650 mg Q6HP PRN PO 11/22/24 14:15 Nitroglycerin 0.4 mg Q5MINP PRN SL 11/22/24 14:15 Morphine Sulfate 2 mg Q30M PRN IV 11/22/24 14:15 Diagnostic Test (Pha) 1 strip ACHS 11/22/24 22:00 11/23/24 06:16 1 STRIP Insulin Human Regular HS SC 11/22/24 22:00 11/22/24 21:32 10 UNITS Insulin Human Regular AC SC 11/23/24 07:00 11/23/24 06:15 9 UNITS Dextrose 50 ml UD PRN IV 11/22/24 17:15 Clopidogrel Bisulfate 75 mg DAILY PO 11/23/24 10:00 Empaglifozin 10 mg DAILY PO 11/23/24 10:00 Atorvastatin Calcium 80 mg HS PO 11/22/24 22:00 11/22/24 21:26 80 MG Metoprolol Succinate 100 mg DAILY PO 11/23/24 10:00 Sertraline HCl 25 mg DAILY PO 11/23/24 10:00 Gabapentin 100 mg DAILY PO 11/23/24 10:00 Glipizide 10 mg BIDAC PO 11/23/24 07:00 11/23/24 06:14 10 MG Sacubitril/ Valsartan 1 tab BID PO 11/22/24 22:00 11/22/24 21:30 1 TAB Apixaban 5 mg BID PO 11/22/24 22:00 11/22/24 21:26 5 MG Spironolactone 25 mg DAILY PO 11/23/24 10:00 laboratory and microbiology Laboratory Tests 11/23/24 06:04 Test 11/23/24 06:04 Range/Units Serum Glucose 217 H 74-106 mg/dL Assessment/Plan Patient is a 69-year-old female who presented to the hospital with chest discomfort and shortness of breath. EMS found the patient with atrial fibrillation with RVR and heart rate in the 130s and oxygen saturation of 80s. Patient is admitted with acute respiratory failure and atrial fibrillation with RVR. Cardiology is involved for cardiac aspects of care. Patient is known to our practice from before. It is of note that in early August of 2024, the patient presented to [facility] for chest pain/inferior wall STEMI. At that time, other ms sql developer (Dr. Baird) performed cardiac catheterization for her. At that point, PCI (balloon angioplasty) of LCX/OM, followed by thrombectomy of the same vessels was performed. During the same procedure, patient had thrombus moving into LAD. At that point, thrombectomy of the LAD was also performed. It is of note that the patient had been non-compliant with her outside medications (as per daughter) prior to that visit (including Xarelto for atrial fibrillation) and that presentation could have been secondary to emboli into coronaries. It is of note that in February 2023 during M[facility]IO, the patient was found to have left atrial appendage thrombus. Not in acute distress. Not using accessory muscles of breathing. Mucosa is pink and wet. No carotid bruit. No goiter. Lungs are clear to auscultation. Cardiac: Irregular, no thrill. S3 gallop is heard. 3+ systolic murmur in the apex is heard. Abdomen is soft. There is no gross mass. There is no hepatomegaly. Extremities reveal 1+ edema bilaterally. Past medical history includes diabetes mellitus, hypertension, hyperlipidemia, persistent AFib (should be on long-term anticoagulation, Xarelto), neuropathy, morbid obesity, hypothyroidism, nonalcoholic fatty liver disease, old history of ventral hernia, and old history of cholecystectomy//hernia repair and hysterectomy. 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 In February 2023, MARCIO had revealed left atrial appendage thrombus. She did have GA/STEMI (inferior wall) on August 21, 2024. Does have history of noncompliance secondary to poor memory (as per daughter). Echocardiogram of January 2023 (performed in the office) revealed ejection fraction of 30% Echocardiogram of June 23, 2024 (performed in the office) revealed ejection fraction of 60-65%, mild biatrial enlargement, trace TR/MR Echocardiogram of August 23, 2024 (performed in [facility]) reported ejection fraction of 25-30%, severe left atrial enlargement, moderate right atrial enlargement, [id number] mitral regurgitation, right ventricular systolic pressure 46 mm Hg Echocardiogram of September 11, 2024 (performed in [facility]) reported ejection fraction of 25-30%, dilated LV, moderate LVH, RV dysfunction, biatrial enlargement, severe MAC, mild mitral stenosis, mild mitral regurgitation, trivial to small pericardial effusion, right ventricular systolic pressure 51mmHg Cardiac catheterization (status post STEMI) of August 21, 2024 (performed in [facility]): Status post PCI/balloon angioplasty of LCX/OM, followed by thrombectomy of the same vessels. During the same procedure thrombus went inside LAD and thrombectomy of LAD thrombus was also performed. Patient was started on Plavix/Xarelto at that point. WBC: 7.0 - 6.7 Hemoglobin: 12.1 - 11.6 BNP: 2268.66 Troponin (high sensitive): 44 - 39 - 35 Creatinine: 0.95 - 0.99 Potassium: 4.9 - 4.5 Chest x-ray revealed: IMPRESSION: Cardiomegaly with pulmonary edema. Patient is a 69-year-old female who presented with shortness of breath and chest discomfort. She is found to have atrial fibrillation with RVR. Has been kept on anticoagulation as outpatient. Chest discomfort, considered atypical Acute on chronic systolic heart failure, LVEF of 25-30% (09/11/2024) Ischemic cardiomyopathy, status post previous balloon angioplasty of LCX/OM Paroxysmal atrial fibrillation (on chronic anticoagulation), Medical non-adherence Diabetes mellitus II CARDIAC SUGGESTIONS FOR MANAGEMENT: Recognizing clinical presentation, ACS at this point is not considered No indication for repeat ischemic workup at present time To proceed with optimized medical therapy and risk factor modification during the interim Recognizing comorbidities, continuation of long-term anticoagulation therapy is advised To proceed with GDMT for systolic heart failure as concurrent conditions permit Recognizing EF of 25-30%, continuation of Kestra life vest upon DC is advised Proceed with IV diuretic therapy (on Lasix 40mg twice daily as for now) Proceed with close observation for overt signs of fluid overload Proceed with strict intakes, outputs, and daily weights Proceed with supplemental oxygen as warranted Dual therapy (Eliquis + Plavix) Toprol- XL: 100 mg daily Atorvastatin 40mg once daily Aldactone 25mg once daily Jardiance 10mg once daily Hold Losartan Entresto: 24/26 mg PO BID Eliquis: 5 mg PO BID, Plavix: 75 mg daily (no need for ASA) IV Amiodarone for now Awaiting Echocardiogram Has Life Vest Counseled at length on importance of adherence to medical therapy Proceed with close rate and rhythm surveillance Proceed with close hemodynamic surveillance Proceed with optimized blood pressure control Transfuse to sustain HGB level above 7.0 Sustain Magnesium level greater than 2.0 Sustain Potassium level greater than 4.0 Follow up renal function and electrolytes Management in telemetry Will proceed to follow from a cardiac perspective Further recommendations per clinical progression Further evaluation and management depends on the above and clinical course A total of 55 minutes was spent reviewing the patient record, examining the patient, making a diagnostic and therapeutic plan, discussing this plan with medical personnel, following up on diagnostic studies and following the patient for clinical stability excluding any and all procedures. At least 50% of this time was spent in direct, [id number] contact. Thank you for allowing me to participate in this patient's care. Further recommendations will depend on patient's clinical course. Please do not hesitate to contact me if you have any questions or concerns. This medical document was created using electronic medical record system with [employer] computerized dictation system. Although this document has been carefully reviewed, there may still be some phonetic and typographical errors. These areas are purely typographical due to the imperfection of the software programs, and do not reflect any compromise in the patient's medical care. Plan discussed with: Patient, Other (nurse) MAXIMINO KIRK MD Nov 23, 2024 07:46
[2024-11-23] MEDS: GABAPENTIN 100 MG CAP PO SCH (09:18)
[2024-11-23] MEDS: METOPROLOL SUCCINATE XL 50 MG TAB PO SCH (09:19)
[2024-11-23] MEDS: SPIRONOLACTONE 25 MG TAB PO SCH (09:20)
[2024-11-23] MEDS: CLOPIDOGREL BISULFATE 75 MG TAB PO SCH (09:20)
[2024-11-23] MEDS: EMPAGLIFLOZIN 10 MG TAB PO SCH (09:20)
[2024-11-23] MEDS: SERTRALINE HCL 50 MG TAB PO SCH (09:22)
[2024-11-23] MEDS ORDERED: ASPirin-EC 81 mg tab PO SCH (10:00)
[2024-11-23] MEDS ORDERED: LOSARTAN POTASSIUM 50 MG TAB PO SCH (10:00)
[2024-11-23] MEDS: FUROSEMIDE 20 MG/2 ML VIAL IV SCH (12:14)
[2024-11-23 13:43] LABS: INR 1.56 (0.9-1.15); Partial Thromboplastin Time 35.1 SEC (24.5-34.5); Prothrombin Time 15.8 sec (9.3-11.8)
--- NOTE | 2024-11-23 15:03 | DVHPNRES ---
Progress Note Date Seen: Nov 23, 2024 Resident Creating Document: CARMELITA LOYOLA RESIDENT Medical Necessity Reason Pt with a Central, PICC or Fol: No Subjective Review of Systems Patient is a 69-year-old female with past medical history of hypertension, hyperlipidemia, CHF, COPD, diabetes mellitus, atrial fibrillation, CAD, who came to the ER with chief complaints of shortness of breath and chest pain, which was 8/10 in intensity, nonradiating, bilateral eg swelling. Patient is a resident at [facility]. patient had a prior CA, in August of 2024, with 1 stent placement. And thrombectomy Of LAD done. as per daughter she states that patient has not been compliant with her home medications, entire MARCIO patient was found to have left arterial appendage thrombus. Past surgical history: Cholecystectomy , hernia repair, hysterectomy, PTCA Personal history: Denies smoking, occasionally social drinker in the past, denies any drug use Lives in rehab center in [facility]. 11/23/2024 Patient seen at bedside. Patient is alert x4, in no distress, on room air, states she does not use home oxygen, according to her daughter states that she is not adherent to her medications and has been having shortness of breath with minimal activity, today she complained of left shoulder pain, denied any chest pain, nausea, vomiting, headaches, dizziness. Patient is in AFib with RVR. Cardiology was consulted and recommended to proceed with GDMT for systolic heart failure. In August echo showed EF of 25-30%. Patient uses a life vest. Patient is with strict I&O, proceed with supplemental oxygen as needed, amiodarone was started. Objective vital signs Vital Sign Date Time Temp Pulse Resp B/P (MAP) Pulse Ox O2 Delivery O2 Flow Rate FiO2 11/23/24 12:14 164/81 11/23/24 09:19 111 11/23/24 09:00 97.3 20 90 97.3 11/22/24 23:34 Nasal Cannula* 2 28 Total Intake and Output 11/22/24 11/22/24 11/23/24 15:00 23:00 07:00 Intake Total 0 ml Balance 0 ml medications Current Medications Medications Dose Ordered Sig/Norberto Route Start Time Stop Time Status Last Admin Dose Admin Acetaminophen/ Hydrocodone Bitart 1 tab Q4HP PRN PO 11/22/24 14:15 11/23/24 12:32 1 TAB Ondansetron HCl 4 mg Q4HP PRN IV 11/22/24 14:15 Docusate Sodium 100 mg BIDPRN PRN PO 11/22/24 14:15 Acetaminophen 650 mg Q6HP PRN PO 11/22/24 14:15 Nitroglycerin 0.4 mg Q5MINP PRN SL 11/22/24 14:15 Morphine Sulfate 2 mg Q30M PRN IV 11/22/24 14:15 Diagnostic Test (Pha) 1 strip ACHS 11/22/24 22:00 11/23/24 12:21 1 STRIP Insulin Human Regular HS SC 11/22/24 22:00 11/22/24 21:32 10 UNITS Insulin Human Regular AC SC 11/23/24 07:00 11/23/24 06:15 9 UNITS Dextrose 50 ml UD PRN IV 11/22/24 17:15 Clopidogrel Bisulfate 75 mg DAILY PO 11/23/24 10:00 11/23/24 09:20 75 MG Empaglifozin 10 mg DAILY PO 11/23/24 10:00 11/23/24 09:20 10 MG Atorvastatin Calcium 80 mg HS PO 11/22/24 22:00 11/22/24 21:26 80 MG Metoprolol Succinate 100 mg DAILY PO 11/23/24 10:00 11/23/24 09:19 100 MG Sertraline HCl 25 mg DAILY PO 11/23/24 10:00 11/23/24 09:22 25 MG Gabapentin 100 mg DAILY PO 11/23/24 10:00 11/23/24 09:18 100 MG Sacubitril/ Valsartan 1 tab BID PO 11/22/24 22:00 11/23/24 09:19 1 TAB Apixaban 5 mg BID PO 11/22/24 22:00 11/23/24 09:20 5 MG Spironolactone 25 mg DAILY PO 11/23/24 10:00 11/23/24 09:20 25 MG Furosemide 20 mg BIDD IV 11/23/24 12:00 11/23/24 12:14 20 MG Examination General: Patient alert and oriented in person, place and time. Patient following commands. HEENT: Normocephalic, atraumatic, moist mucous membranes Respiratory/pulmonary: Bilateral basilar crackles Cardiovascular: Normal heart sounds S1 and S2 with no associated murmurs Abdomen: Abdomen nondistended, there is no pain to palpation in any of the abdominal quadrants, no palpable masses. Extremities: +1 pitting edema Peripheral Pulses: 3+ Radial (R). 3+ Radial (L). 3+ Dorsalis pedis (R). 3+ Dorsalis pedis(L) Skin: No rashes or pruritus, there is no sacral edema present at this time. Neurological: Intact cranial nerves with no focal neurologic deficits laboratory and microbiology Laboratory Tests 11/23/24 06:04 Test 11/23/24 06:04 Range/Units Serum Glucose 217 H 74-106 mg/dL Microbiology Date/Time Source Procedure Growth Status 11/23/24 00:00 Nose MRSA Screen - Final Complete Labs and/or images reviewed: Labs reviewed by me, Image(s) reviewed by me Problem List/Assessment/Plan Problem List/Assessment/Plan # Acute on chronic exacerbation systolic heart failure NYHA- 3 # NSTEMI type 2 # - ejection fraction of 25-30% in August 2024 - BNP :2268 - past CA in August 2024, status post PCI - cardiology consulted, and recommended to proceed with GDMT - Dual therapy (Eliquis + Plavix) -Toprol- XL: 100 mg daily -Atorvastatin 40mg once daily -Aldactone 25mg once daily -Jardiance 10mg once daily -IV Amiodarone -Entresto: 24/26 mg PO BID -furosemide 20 mg IV # history of hypertension # history of hyperlipidemia - continue home medications # diabetes mellitus type 2, HbA1c:9.7 - moderate ISS # Transaminitis - monitor labs # noncompliance - patient counseled on importance of taking medications as prescribed for greater than 13 minutes Goals of care addressed with the patient for more than 27 minutes: Full code status Case discussed with Dr. Watt , patient and nurse Plan discussed with: Patient, Other (RN) My Orders My Orders Orders - CARMELITA LOYOLA RESIDENT Procedure Category Date Status Time Drug Screen LAB 11/23/24 Logged 08:56 Covid19 Antigen Qian LAB 11/23/24 Logged Rapid Influenza A&B LAB 11/23/24 Logged 08:56 Date of Service: Nov 23, 2024 Billing Provider: RAUL WATT MD Common Visit Codes: [id number] INP/OBS CARE(HIGH) CARMELITA LOYOLA RESIDENT Nov 23, 2024 15:03 RAUL WATT MD Nov 23, 2024 18:06
[2024-11-23] MEDS ORDERED: POM SC (16:09)
[2024-11-23] MEDS: MORPHINE SULFATE INJ 2 MG/ml SYRG IV PRN (17:32)
[2024-11-23 18:40] LABS: Urine Budding Yeast FEW /hpf (None Seen); Urine Protein, UAD 1+ (Negative)
[2024-11-23 18:42] LABS: Opiate Scree,Urine Neg (NEGATIVE)
[2024-11-23 18:47] LABS: Amphetamine Screen, Urine Neg (NEGATIVE); Barbiturate Scree,Urine Neg (NEGATIVE); Benzodiazephine Screen, Urine Neg (NEGATIVE); Cannabinoid Screen, Urine Neg (NEGATIVE); Cocaine Screen, Urine Neg (NEGATIVE); Phencyclidine Screen, Urine Neg (NEGATIVE)
[2024-11-23 19:04] LABS: COVID19 ANTIGEN SOFIA FIA NEGATIVE (NEGATIVE)
--- NOTE | 2024-11-23 19:16 | DVHSR ---
APPROVED REPORT EXAM: Two-dimensional and M-mode echocardiogram with Doppler and color Doppler. Blood Pressure: 134/91 mmHg INDICATION a- fib, systolic chf RISK FACTORS Obesity: Height: 5'0, Weight: 181 DIMENSIONS LVDd6.2 (3.8-5.7cm)LA (2D)5.2 (1.9-4.0cm)Aortic Root3.6 (2.0-3.7cm) LVDs5.2 (2.5-4.0cm)LA (MM) (1.9-4.0cm)Aortic Cusp Exc1.6 (1.5-2.0cm) EF (%) 25.0 (55-70%)Rt. Atrium5.0 (1.9-4.0cm)Asc. Aorta3.5 cm IVSd0.8 (0.7-1.1cm)RV (D)4.6 (1.8-2.4cm) PWd1.0 (0.7-1.1cm) Mitral Valve MitralMitral Stenosis E wave1.05m/sMV Mean GR.1mmHg A wavem/sMV Peak GR.74mmHg E/A ratio0.02D MVAcm2 Aortic Valve Aortic ValveAortic Stenosis V10.46m/Blaine Mean GR.mmHg V20.72m/Blaine Peak GR.2mmHg LVOT Diameter1.8 (1.8-2.4cm)Doppler AVA1.62cm2 Tricuspid Valve TR Velocity3.21m/s [id number] Conclusion Four-chamber dilatation was observed. Left ventricle: Left ventricle was dilated. Mild concentric left ventricular hypertrophy was seen. Diffuse hypokinesis of left ventricle was seen. LVEF was around 30%. Left ventricular filling pres sure were considered elevated. Right ventricle was dilated with preserved systolic function. Both atria were dilated Aortic valve was trileaflet. There was no aortic stenosis/insufficiency. Mitral annular calcificati on was observed. There was [id number]-[id number] mitral regurgitation. There was no significant mitral s tenosis. There was moderate tricuspid regurgitation. There was trivial pulmonary valve insufficienc y. Right ventricular systolic pressure was assessed around 50 mm Hg. [id number] generalized richard cardial effusion was observed.
[2024-11-24] VITALS (9 sets, daily range): BP systolic 120–143; BP diastolic 75–98; PULSE 94–116; RESP 18–20; TEMP 97.4–98.4; O2SAT 90–100
--- NOTE | 2024-11-24 06:38 | DVHPN2 ---
Progress Note - Dictate Date Seen: Nov 24, 2024 Medical Necessity Reason Pt with a Central, PICC or Fol: No vital signs Vital Sign Date Time Temp Pulse Resp B/P (MAP) Pulse Ox O2 Delivery O2 Flow Rate FiO2 11/24/24 05:00 97.9 102 19 143/91 (108) 99 97.9 11/23/24 08:00 Nasal Cannula* 2 28 Total Intake and Output 11/23/24 11/23/24 11/24/24 15:00 23:00 07:00 Intake Total 600 ml 866.6 ml Balance 600 ml 866.6 ml medications Current Medications Medications Dose Ordered Sig/Norberto Route Start Time Stop Time Status Last Admin Dose Admin Acetaminophen/ Hydrocodone Bitart 1 tab Q4HP PRN PO 11/22/24 14:15 Hold 11/23/24 12:32 1 TAB Ondansetron HCl 4 mg Q4HP PRN IV 11/22/24 14:15 Docusate Sodium 100 mg BIDPRN PRN PO 11/22/24 14:15 Acetaminophen 650 mg Q6HP PRN PO 11/22/24 14:15 Nitroglycerin 0.4 mg Q5MINP PRN SL 11/22/24 14:15 Morphine Sulfate 2 mg Q30M PRN IV 11/22/24 14:15 Diagnostic Test (Pha) 1 strip ACHS 11/22/24 22:00 11/23/24 22:52 1 STRIP Insulin Human Regular HS SC 11/22/24 22:00 11/23/24 22:48 8 UNITS Insulin Human Regular AC SC 11/23/24 07:00 11/23/24 17:52 3 UNITS Dextrose 50 ml UD PRN IV 11/22/24 17:15 Clopidogrel Bisulfate 75 mg DAILY PO 11/23/24 10:00 11/23/24 09:20 75 MG Empaglifozin 10 mg DAILY PO 11/23/24 10:00 11/23/24 09:20 10 MG Atorvastatin Calcium 80 mg HS PO 11/22/24 22:00 11/23/24 22:28 80 MG Metoprolol Succinate 100 mg DAILY PO 11/23/24 10:00 11/23/24 09:19 100 MG Sertraline HCl 25 mg DAILY PO 11/23/24 10:00 11/23/24 09:22 25 MG Gabapentin 100 mg DAILY PO 11/23/24 10:00 11/23/24 09:18 100 MG Sacubitril/ Valsartan 1 tab BID PO 11/22/24 22:00 11/23/24 22:27 1 TAB Apixaban 5 mg BID PO 11/22/24 22:00 11/23/24 22:28 5 MG Spironolactone 25 mg DAILY PO 11/23/24 10:00 11/23/24 09:20 25 MG Furosemide 20 mg BIDD IV 11/23/24 12:00 11/23/24 19:33 20 MG Morphine Sulfate 1 mg Q6HP PRN IV 11/23/24 17:00 11/23/24 17:32 1 MG laboratory and microbiology Laboratory Tests 11/23/24 06:04 Test 11/23/24 06:04 Range/Units Serum Glucose 217 H 74-106 mg/dL Assessment/Plan Patient is a 69-year-old female who presented to the hospital with chest discomfort and shortness of breath. EMS found the patient with atrial fibrillation with RVR and heart rate in the 130s and oxygen saturation of 80s. Patient is admitted with acute respiratory failure and atrial fibrillation with RVR. Cardiology is involved for cardiac aspects of care. Patient is known to our practice from before. It is of note that in early August of 2024, the patient presented to [facility] for chest pain/inferior wall STEMI. At that time, other hopper filler (Dr. Baird) performed cardiac catheterization for her. At that point, PCI (balloon angioplasty) of LCX/OM, followed by thrombectomy of the same vessels was performed. During the same procedure, patient had thrombus moving into LAD. At that point, thrombectomy of the LAD was also performed. It is of note that the patient had been non-compliant with her outside medications (as per daughter) prior to that visit (including Xarelto for atrial fibrillation) and that presentation could have been secondary to emboli into coronaries. It is of note that in February 2023 during MARCIO, the patient was found to have left atrial appendage thrombus. Not in acute distress. Not using accessory muscles of breathing. Mucosa is pink and wet. No carotid bruit. No goiter. Lungs are clear to auscultation. Cardiac: Irregular, no thrill. S3 gallop is heard. 3+ systolic murmur in the apex is heard. Abdomen is soft. There is no gross mass. There is no hepatomegaly. Extremities reveal 1+ edema bilaterally. Past medical history includes diabetes mellitus, hypertension, hyperlipidemia, persistent AFib (should be on long-term anticoagulation, Xarelto), neuropathy, morbid obesity, hypothyroidism, nonalcoholic fatty liver disease, old history of ventral hernia, and old history of cholecystectomy//hernia repair and hysterectomy. 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 In February 2023, MARCIO had revealed left atrial appendage thrombus. She did have IA/STEMI (inferior wall) on August 21, 2024. Does have history of noncompliance secondary to poor memory (as per daughter). Echocardiogram of January 2023 (performed in the office) revealed ejection fraction of 30% Echocardiogram of June 23, 2024 (performed in the office) revealed ejection fraction of 60-65%, mild biatrial enlargement, trace TR/MR Echocardiogram of August 23, 2024 (performed in [facility]) reported ejection fraction of 25-30%, severe left atrial enlargement, moderate right atrial enlargement, gwel-ne-knjzvizj mitral regurgitation, right ventricular systolic pressure 46 mm Hg Echocardiogram of September 11, 2024 (performed in [facility]) reported ejection fraction of 25-30%, dilated LV, moderate LVH, RV dysfunction, biatrial enlargement, severe MAC, mild mitral stenosis, mild mitral regurgitation, trivial to small pericardial effusion, right ventricular systolic pressure 51mmHg Cardiac catheterization (status post STEMI) of August 21, 2024 (performed in [facility]): Status post PCI/balloon angioplasty of LCX/OM, followed by thrombectomy of the same vessels. During the same procedure thrombus went inside LAD and thrombectomy of LAD thrombus was also performed. Patient was started on Plavix/Xarelto at that point. WBC: 7.0 - 6.7 Hemoglobin: 12.1 - 11.6 BNP: 2268.66 Troponin (high sensitive): 44 - 39 - 35 Creatinine: 0.95 - 0.99 Potassium: 4.9 - 4.5 Chest x-ray revealed: IMPRESSION: Cardiomegaly with pulmonary edema. Echocardiogram revealed: Four-chamber dilatation was observed. Left ventricle: Left ventricle was dilated. Mild concentric left ventricular hypertrophy was seen. Diffuse hypokinesis of left ventricle was seen. LVEF was around 30%. Left ventricular filling pressure were considered elevated. Right ventricle was dilated with preserved systolic function. Both atria were dilated. Aortic valve was trileaflet. There was no aortic stenosis/insufficiency. Mitral annular calcification was observed. There was [id number] mitral regurgitation. There was no significant mitral stenosis. There was moderate tricuspid regurgitation. There was trivial pulmonary valve insufficiency. Right ventricular systolic pressure was assessed around 50 mm Hg. Ycecu-bd-zrvqsvnt generalized pericardial effusion was observed. Patient is a 69-year-old female who presented with shortness of breath and chest discomfort. She is found to have atrial fibrillation with RVR. Has been kept on anticoagulation as outpatient. Chest discomfort, considered atypical Acute on chronic systolic heart failure Ischemic cardiomyopathy, status post previous balloon angioplasty of LCX/OM Paroxysmal atrial fibrillation (on chronic anticoagulation), Medical non-adherence Diabetes mellitus II CARDIAC SUGGESTIONS FOR MANAGEMENT: Recognizing clinical presentation, ACS at this point is not considered No indication for repeat ischemic workup at present time To proceed with optimized medical therapy and risk factor modification during the interim Recognizing comorbidities, continuation of long-term anticoagulation therapy is advised To proceed with GDMT for systolic heart failure as concurrent conditions permit Recognizing EF of 25-30%, continuation of Kestra life vest upon DC is advised Proceed with IV diuretic therapy (on Lasix 40mg twice daily as for now) Proceed with close observation for overt signs of fluid overload Proceed with strict intakes, outputs, and daily weights Proceed with supplemental oxygen as warranted Dual therapy (Eliquis + Plavix) Toprol- XL: 100 mg daily Atorvastatin 40mg once daily Aldactone 25mg once daily Jardiance 10mg once daily Hold Losartan Entresto: 24/26 mg PO BID Eliquis: 5 mg PO BID, Plavix: 75 mg daily (no need for ASA) Oral Amiodarone 200 mg PO BID Has Life Vest Counseled at length on importance of adherence to medical therapy Proceed with close rate and rhythm surveillance Proceed with close hemodynamic surveillance Proceed with optimized blood pressure control Transfuse to sustain HGB level above 7.0 Sustain Magnesium level greater than 2.0 Sustain Potassium level greater than 4.0 Follow up renal function and electrolytes Management in telemetry Will proceed to follow from a cardiac perspective Further recommendations per clinical progression Further evaluation and management depends on the above and clinical course A total of 55 minutes was spent reviewing the patient record, examining the patient, making a diagnostic and therapeutic plan, discussing this plan with medical personnel, following up on diagnostic studies and following the patient for clinical stability excluding any and all procedures. At least 50% of this time was spent in direct, [id number] contact. Thank you for allowing me to participate in this patient's care. Further recommendations will depend on patient's clinical course. Please do not hesitate to contact me if you have any questions or concerns. This medical document was created using electronic medical record system with [employer] computerized dictation system. Although this document has been carefully reviewed, there may still be some phonetic and typographical errors. These areas are purely typographical due to the imperfection of the software programs, and do not reflect any compromise in the patient's medical care. Plan discussed with: Patient, Other (nurse) MAXIMINO KIRK MD Nov 24, 2024 06:38
[2024-11-24 07:22] LABS: Chloride 101 mmol/L (98-107); Potassium 4.2 mmol/L (3.5-5.1)
[2024-11-24 07:23] LABS: Anion Gap 8 (5-15); Carbon Dioxide 27 mmol/L (20-31)
[2024-11-24 07:29] LABS: BUN/Creatinine Ratio 32.0 (10.0-20.0); Blood Urea Nitrogen 33 mg/dL (9-23); Calcium 8.5 mg/dL (8.7-10.4); Glucose 172 mg/dL (74-106); Sodium 136 mmol/L (136-145)
[2024-11-24 07:30] LABS: Hematocrit 36.3 % (36.0-46.0); Hemoglobin 11.9 g/dL (12.2-16.2); Mean Corpuscular Hemoglobin 29.3 pg (28.0-32.0); Mean Corpuscular Volume 89.9 fL (80.0-100.0); Nucleated Red Blood Cells % 0.0 %
[2024-11-24] MEDS: AMIODARONE HCL 200 MG TAB PO SCH (09:01)
--- NOTE | 2024-11-24 19:54 | DVHPNRES ---
Progress Note Date Seen: Nov 24, 2024 Resident Creating Document: CARMELITA LOYOLA RESIDENT Medical Necessity Reason Pt with a Central, PICC or Fol: No Subjective Review of Systems Patient is a 69-year-old female with past medical history of hypertension, hyperlipidemia, CHF, COPD, diabetes mellitus, atrial fibrillation, CAD, who came to the ER with chief complaints of shortness of breath and chest pain, which was 8/10 in intensity, nonradiating, bilateral eg swelling. Patient is a resident at [facility]. patient had a prior NV, in August of 2024, with 1 stent placement. And thrombectomy Of LAD done. as per daughter she states that patient has not been compliant with her home medications, entire MARCIO patient was found to have left arterial appendage thrombus. Past surgical history: Cholecystectomy , hernia repair, hysterectomy, PTCA Personal history: Denies smoking, occasionally social drinker in the past, denies any drug use Lives in rehab center in [facility]. 11/23/2024 Patient seen at bedside. Patient is alert x4, in no distress, on room air, states she does not use home oxygen, according to her daughter states that she is not adherent to her medications and has been having shortness of breath with minimal activity, today she complained of left shoulder pain, denied any chest pain, nausea, vomiting, headaches, dizziness. Patient is in AFib with RVR. Cardiology was consulted and recommended to proceed with GDMT for systolic heart failure. In August echo showed EF of 25-30%. Patient uses a life vest. Patient is with strict I&O, proceed with supplemental oxygen as needed, amiodarone was started. 11/24/2024 Patient seen at bedside. Patient is a test for, no distress, on room air patient denies any shortness of breath, palpitations, chest pain, states her left shoulder pain has reduced. patient is switched to oral amiodarone 200 mg p.o. b.i.d.. Patient was ambulated to see heart rate and maximum heart rate was 117 after ambulating. Cardiology on board. Objective vital signs Vital Sign Date Time Temp Pulse Resp B/P (MAP) Pulse Ox O2 Delivery O2 Flow Rate FiO2 11/24/24 17:04 126/79 11/24/24 16:39 98.2 94 18 95 98.2 11/24/24 08:00 Room Air* 0 21 Total Intake and Output 11/23/24 11/23/24 11/24/24 15:00 23:00 07:00 Intake Total 600 ml 866.6 ml Balance 600 ml 866.6 ml medications Current Medications Medications Dose Ordered Sig/Norberto Route Start Time Stop Time Status Last Admin Dose Admin Acetaminophen/ Hydrocodone Bitart 1 tab Q4HP PRN PO 11/22/24 14:15 Hold 11/23/24 12:32 1 TAB Ondansetron HCl 4 mg Q4HP PRN IV 11/22/24 14:15 Docusate Sodium 100 mg BIDPRN PRN PO 11/22/24 14:15 Acetaminophen 650 mg Q6HP PRN PO 11/22/24 14:15 Nitroglycerin 0.4 mg Q5MINP PRN SL 11/22/24 14:15 Morphine Sulfate 2 mg Q30M PRN IV 11/22/24 14:15 Diagnostic Test (Pha) 1 strip ACHS 11/22/24 22:00 11/24/24 17:14 1 STRIP Insulin Human Regular HS SC 11/22/24 22:00 11/23/24 22:48 8 UNITS Insulin Human Regular AC SC 11/23/24 07:00 11/24/24 17:27 9 UNITS Dextrose 50 ml UD PRN IV 11/22/24 17:15 Clopidogrel Bisulfate 75 mg DAILY PO 11/23/24 10:00 11/24/24 09:03 75 MG Empaglifozin 10 mg DAILY PO 11/23/24 10:00 11/24/24 08:59 10 MG Atorvastatin Calcium 80 mg HS PO 11/22/24 22:00 11/23/24 22:28 80 MG Metoprolol Succinate 100 mg DAILY PO 11/23/24 10:00 11/24/24 09:05 100 MG Sertraline HCl 25 mg DAILY PO 11/23/24 10:00 11/24/24 09:03 25 MG Gabapentin 100 mg DAILY PO 11/23/24 10:00 11/24/24 09:03 100 MG Sacubitril/ Valsartan 1 tab BID PO 11/22/24 22:00 11/24/24 09:01 1 TAB Apixaban 5 mg BID PO 11/22/24 22:00 11/24/24 08:59 5 MG Spironolactone 25 mg DAILY PO 11/23/24 10:00 11/24/24 08:59 25 MG Furosemide 20 mg BIDD IV 11/23/24 12:00 11/24/24 17:04 20 MG Morphine Sulfate 1 mg Q6HP PRN IV 11/23/24 17:00 11/23/24 17:32 1 MG Amiodarone HCl 200 mg Q12HR PO 11/24/24 10:00 11/24/24 09:01 200 MG Examination General: Patient alert and oriented in person, place and time. Patient following commands. HEENT: Normocephalic, atraumatic, moist mucous membranes Respiratory/pulmonary: Bilateral basilar crackles Cardiovascular: Normal heart sounds S1 and S2 with no associated murmurs Abdomen: Abdomen nondistended, there is no pain to palpation in any of the abdominal quadrants, no palpable masses. Extremities: +1 pitting edema Peripheral Pulses: 3+ Radial (R). 3+ Radial (L). 3+ Dorsalis pedis (R). 3+ Dorsalis pedis(L) Skin: No rashes or pruritus, there is no sacral edema present at this time. Neurological: Intact cranial nerves with no focal neurologic deficits laboratory and microbiology Laboratory Tests 11/24/24 05:56 Test 11/24/24 05:56 Range/Units Serum Glucose 172 H 74-106 mg/dL Microbiology Date/Time Source Procedure Growth Status 11/23/24 00:00 Nose MRSA Screen - Final Complete Problem List/Assessment/Plan Problem List/Assessment/Plan # Acute on chronic exacerbation systolic heart failure NYHA- 3 # NSTEMI type 2 # - ejection fraction of 25-30% in August 2024 - BNP :2268 - past NV in August 2024, status post PCI - cardiology consulted, and recommended to proceed with GDMT - Dual therapy (Eliquis + Plavix) -Toprol- XL: 100 mg daily -Atorvastatin 40mg once daily -Aldactone 25mg once daily -Jardiance 10mg once daily -IV Amiodarone was changed to p.o. amiodarone 200 mg b.i.d. -Entresto: 24/26 mg PO BID -furosemide 20 mg IV # history of hypertension # history of hyperlipidemia - continue home medications # diabetes mellitus type 2, HbA1c:9.7 - moderate ISS # Transaminitis - monitor labs # noncompliance - patient counseled on importance of taking medications as prescribed for greater than 13 minutes Goals of care addressed with the patient for more than 27 minutes: Full code status Case discussed with Dr. Watt , patient and nurse Plan discussed with: Patient Date of Service: Nov 24, 2024 Billing Provider: RAUL WATT MD Common Visit Codes: [id number] INP/OBS CARE(HIGH) CARMELITA LOYOLA RESIDENT Nov 24, 2024 19:54 RAUL WATT MD Nov 25, 2024 00:00
[2024-11-25 01:00] VITALS: BP 130/91; PULSE 102; RESP 19; TEMP 98.1; O2SAT 95
[2024-11-25 05:00] VITALS: BP 122/89; PULSE 85; RESP 19; TEMP 98.3; O2SAT 94
[2024-11-25 08:00] VITALS: PULSE 103
[2024-11-25 08:17] LABS: Anion Gap 8 (5-15); Carbon Dioxide 29 mmol/L (20-31); Chloride 103 mmol/L (98-107); Potassium 3.8 mmol/L (3.5-5.1); Sodium 140 mmol/L (136-145)
[2024-11-25 08:22] LABS: Calcium 8.6 mg/dL (8.7-10.4)
[2024-11-25 08:23] LABS: BUN/Creatinine Ratio 31.4 (10.0-20.0)
[2024-11-25 08:27] LABS: Blood Urea Nitrogen 27 mg/dL (9-23); Glucose 139 mg/dL (74-106)
--- NOTE | 2024-11-25 08:27 | DVHPN2 ---
Progress Note - Dictate Date Seen: Nov 25, 2024 Medical Necessity Reason Pt with a Central, PICC or Fol: No vital signs Vital Sign Date Time Temp Pulse Resp B/P (MAP) Pulse Ox O2 Delivery O2 Flow Rate FiO2 11/25/24 08:00 Room Air* 0 21 11/25/24 05:37 122/89 11/25/24 05:00 98.3 85 19 94 98.3 Total Intake and Output 11/24/24 11/24/24 11/25/24 15:00 23:00 07:00 Intake Total 1930 ml 750 ml Balance 1930 ml 750 ml medications Current Medications Medications Dose Ordered Sig/Norberto Route Start Time Stop Time Status Last Admin Dose Admin Acetaminophen/ Hydrocodone Bitart 1 tab Q4HP PRN PO 11/22/24 14:15 Hold 11/23/24 12:32 1 TAB Ondansetron HCl 4 mg Q4HP PRN IV 11/22/24 14:15 Docusate Sodium 100 mg BIDPRN PRN PO 11/22/24 14:15 Acetaminophen 650 mg Q6HP PRN PO 11/22/24 14:15 Nitroglycerin 0.4 mg Q5MINP PRN SL 11/22/24 14:15 Morphine Sulfate 2 mg Q30M PRN IV 11/22/24 14:15 Diagnostic Test (Pha) 1 strip ACHS 11/22/24 22:00 11/25/24 05:45 1 STRIP Insulin Human Regular HS SC 11/22/24 22:00 11/24/24 21:19 3 UNITS Insulin Human Regular AC SC 11/23/24 07:00 11/25/24 05:45 2 UNITS Dextrose 50 ml UD PRN IV 11/22/24 17:15 Clopidogrel Bisulfate 75 mg DAILY PO 11/23/24 10:00 11/24/24 09:03 75 MG Empaglifozin 10 mg DAILY PO 11/23/24 10:00 11/24/24 08:59 10 MG Atorvastatin Calcium 80 mg HS PO 11/22/24 22:00 11/24/24 21:12 80 MG Metoprolol Succinate 100 mg DAILY PO 11/23/24 10:00 11/24/24 09:05 100 MG Sertraline HCl 25 mg DAILY PO 11/23/24 10:00 11/24/24 09:03 25 MG Gabapentin 100 mg DAILY PO 11/23/24 10:00 11/24/24 09:03 100 MG Sacubitril/ Valsartan 1 tab BID PO 11/22/24 22:00 11/24/24 21:12 1 TAB Apixaban 5 mg BID PO 11/22/24 22:00 11/24/24 21:12 5 MG Spironolactone 25 mg DAILY PO 11/23/24 10:00 11/24/24 08:59 25 MG Furosemide 20 mg BIDD IV 11/23/24 12:00 11/25/24 05:37 20 MG Morphine Sulfate 1 mg Q6HP PRN IV 11/23/24 17:00 11/23/24 17:32 1 MG Amiodarone HCl 200 mg Q12HR PO 11/24/24 10:00 11/24/24 21:12 200 MG laboratory and microbiology Laboratory Tests 11/25/24 06:15 11/24/24 05:56 Test 11/25/24 06:15 Range/Units Serum Glucose Pending Assessment/Plan Patient is a 69-year-old female who presented to the hospital with chest discomfort and shortness of breath. EMS found the patient with atrial fibrillation with RVR and heart rate in the 130s and oxygen saturation of 80s. Patient is admitted with acute respiratory failure and atrial fibrillation with RVR. Cardiology is involved for cardiac aspects of care. Patient is known to our practice from before. It is of note that in early August of 2024, the patient presented to [facility] for chest pain/inferior wall STEMI. At that time, other briquette machine operator helper (Dr. Baird) performed cardiac catheterization for her. At that point, PCI (balloon angioplasty) of LCX/OM, followed by thrombectomy of the same vessels was performed. During the same procedure, patient had thrombus moving into LAD. At that point, thrombectomy of the LAD was also performed. It is of note that the patient had been non-compliant with her outside medications (as per daughter) prior to that visit (including Xarelto for atrial fibrillation) and that presentation could have been secondary to emboli into coronaries. It is of note that in February 2023 during [facility], the patient was found to have left atrial appendage thrombus. Not in acute distress. Not using accessory muscles of breathing. Mucosa is pink and wet. No carotid bruit. No goiter. Lungs are clear to auscultation. Cardiac: Irregular, no thrill. S3 gallop is heard. 3+ systolic murmur in the apex is heard. Abdomen is soft. There is no gross mass. There is no hepatomegaly. Extremities reveal 1+ edema bilaterally. Past medical history includes diabetes mellitus, hypertension, hyperlipidemia, persistent AFib (should be on long-term anticoagulation, Xarelto), neuropathy, morbid obesity, hypothyroidism, nonalcoholic fatty liver disease, old history of ventral hernia, and old history of cholecystectomy//hernia repair and hysterectomy. 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 In February 2023, M[facility]IO had revealed left atrial appendage thrombus. She did have CA/STEMI (inferior wall) on August 21, 2024. Does have history of noncompliance secondary to poor memory (as per daughter). Echocardiogram of January 2023 (performed in the office) revealed ejection fraction of 30% Echocardiogram of June 23, 2024 (performed in the office) revealed ejection fraction of 60-65%, mild biatrial enlargement, trace TR/MR Echocardiogram of August 23, 2024 (performed in [facility]) reported ejection fraction of 25-30%, severe left atrial enlargement, moderate right atrial enlargement, qmdj-zv-clratobj mitral regurgitation, right ventricular systolic pressure 46 mm Hg Echocardiogram of September 11, 2024 (performed in [facility]) reported ejection fraction of 25-30%, dilated LV, moderate LVH, RV dysfunction, biatrial enlargement, severe MAC, mild mitral stenosis, mild mitral regurgitation, trivial to small pericardial effusion, right ventricular systolic pressure 51mmHg Cardiac catheterization (status post STEMI) of August 21, 2024 (performed in [facility]): Status post PCI/balloon angioplasty of LCX/OM, followed by thrombectomy of the same vessels. During the same procedure thrombus went inside LAD and thrombectomy of LAD thrombus was also performed. Patient was started on Plavix/Xarelto at that point. WBC: 7.0 - 6.7 - 7.1 Hemoglobin: 12.1 - 11.6 - 11.9 BNP: 2268.66 Troponin (high sensitive): 44 - 39 - 35 Creatinine: 0.95 - 0.99 - 1.03 - today's pending Potassium: 4.9 - 4.5 - 4.2 - 3.8 UDS: non-revealing Chest x-ray revealed: IMPRESSION: Cardiomegaly with pulmonary edema. Echocardiogram revealed: Four-chamber dilatation was observed. Left ventricle: Left ventricle was dilated. Mild concentric left ventricular hypertrophy was seen. Diffuse hypokinesis of left ventricle was seen. LVEF was around 30%. Left ventricular filling pressure were considered elevated. Right ventricle was dilated with preserved systolic function. Both atria were dilated. Aortic valve was trileaflet. There was no aortic stenosis/insufficiency. Mitral annular calcification was observed. There was xpid-do-afcrkarm mitral regurgitation. There was no significant mitral stenosis. There was moderate tricuspid regurgitation. There was trivial pulmonary valve insufficiency. Right ventricular systolic pressure was assessed around 50 mm Hg. Rkjvm-kq-qfgknpvt generalized pericardial effusion was observed. Patient is a 69-year-old female who presented with shortness of breath and chest discomfort. She is found to have atrial fibrillation with RVR. Has been kept on anticoagulation as outpatient. Chest discomfort, considered atypical Acute on chronic systolic heart failure Ischemic cardiomyopathy, status post previous balloon angioplasty of LCX/OM Paroxysmal atrial fibrillation (on chronic anticoagulation), Medical non-adherence Diabetes mellitus II CARDIAC SUGGESTIONS FOR MANAGEMENT: Recognizing clinical presentation, ACS at this point is not considered No indication for repeat ischemic workup at present time To proceed with optimized medical therapy and risk factor modification during the interim Recognizing comorbidities, continuation of long-term anticoagulation therapy is advised To proceed with GDMT for systolic heart failure as concurrent conditions permit Recognizing EF of 25-30%, continuation of Kestra life vest upon DC is advised Proceed with IV diuretic therapy (on Lasix 40mg twice daily as for now) Proceed with close observation for overt signs of fluid overload Proceed with strict intakes, outputs, and daily weights Proceed with supplemental oxygen as warranted Dual therapy (Eliquis + Plavix) Toprol- XL: 100 mg daily Atorvastatin 40mg once daily Aldactone 25mg once daily Jardiance 10mg once daily Entresto: 24/26 mg PO BID Eliquis: 5 mg PO BID, Plavix: 75 mg daily (no need for ASA) Oral Amiodarone 200 mg PO BID Has Life Vest Counseled at length on importance of adherence to medical therapy Proceed with close rate and rhythm surveillance Proceed with close hemodynamic surveillance Proceed with optimized blood pressure control Transfuse to sustain HGB level above 7.0 Sustain Magnesium level greater than 2.0 Sustain Potassium level greater than 4.0 Follow up renal function and electrolytes Cardiac dalton is stable and can be followed as outpatient Management in telemetry Will proceed to follow from a cardiac perspective Further recommendations per clinical progression Further evaluation and management depends on the above and clinical course A total of 55 minutes was spent reviewing the patient record, examining the patient, making a diagnostic and therapeutic plan, discussing this plan with medical personnel, following up on diagnostic studies and following the patient for clinical stability excluding any and all procedures. At least 50% of this time was spent in direct, gnvk-au-ngrz contact. Thank you for allowing me to participate in this patient's care. Further recommendations will depend on patient's clinical course. Please do not hesitate to contact me if you have any questions or concerns. This medical document was created using electronic medical record system with [email or web address] computerized dictation system. Although this document has been carefully reviewed, there may still be some phonetic and typographical errors. These areas are purely typographical due to the imperfection of the software programs, and do not reflect any compromise in the patient's medical care. Plan discussed with: Patient, Other (nurse) MAXIMINO KIRK MD Nov 25, 2024 08:27
[2024-11-25 09:05] VITALS: BP 136/80; PULSE 105; RESP 19; TEMP 97.9; O2SAT 93
--- NOTE | 2024-11-25 10:08 | ECG ---
[facility] Test Date: 2024-11-22 Test Time: 11:05:02 Pat Name: ERIC LINDA Department: ED Room: 0279T Gender: F Rental Sales Agent: MANUEL : 1955 Requested By: VAHE PHIPPS Order Number: [id number] Reading MD: Measurements Intervals [place] Rate: 130 P: 131 NE: 114 QRS: 59 QRSD: 103 T: 0 QT: 335 QTc: 493 Interpretive Statements Sinus tachycardia Borderline T abnormalities, diffuse leads Borderline prolonged QT interval Baseline wander in lead(s) V3,V5,V6 Please click the below link to view image of tracing.
--- NOTE | 2024-11-25 10:08 | ECG ---
[facility] Test Date: 2024-11-22 Test Time: 10:12:06 Pat Name: ERIC LINDA Department: ED Room: 0279T Gender: F Director Of Officiating: po : 1955 Requested By: VAHE PHIPPS Order Number: [id number] Reading MD: Measurements Intervals [place] Rate: 130 P: 0 ID: 0 QRS: 68 QRSD: 103 T: 85 QT: 346 QTc: 509 Interpretive Statements Atrial fibrillation Borderline T abnormalities, lateral leads Prolonged QT interval Please click the below link to view image of tracing.
--- NOTE | 2024-11-25 12:59 | ECG ---
[facility] Test Date: 2024-11-22 Test Time: 13:09:19 Pat Name: ERIC LINDA Department[facility] ED Room: 0279T Gender: F Manager Inside: MANUEL : 1955 Requested By: VAHE PHIPPS Order Number: [id number] Reading MD: Measurements Intervals [place] Rate: 116 P: 0 PA: 0 QRS: -44 QRSD: 108 T: 150 QT: 421 QTc: 586 Interpretive Statements Atrial fibrillation Left axis deviation Nonspecific T abnormalities, lateral leads Prolonged QT interval Please click the below link to view image of tracing.
== END 2024-11-25 12:24 | DRG 280 ==
LOC: EDSEX 10:12 → EDBD 10:12 → ER 10:12 → OVERFLOW 14:06 → TELE-WESTW 23:34
PROVIDERS: ADMIT Internal Medicine; ATTEND Emergency Medicine
DX: I11.0 Hypertensive heart disease with heart failure (principal); I50.43 Acute on chronic combined systolic (congestive) and diastolic (congestive) heart failure; I21.A1 Myocardial infarction type 2; J96.00 Acute respiratory failure, unspecified whether with hypoxia or hypercapnia; I31.39 Other pericardial effusion (noninflammatory); J44.9 Chronic obstructive pulmonary disease, unspecified; I48.91 Unspecified atrial fibrillation; I34.81 Nonrheumatic mitral (valve) annulus calcification; I07.1 Rheumatic tricuspid insufficiency; E66.01 Morbid (severe) obesity due to excess calories; E03.9 Hypothyroidism, unspecified; E11.40 Type 2 diabetes mellitus with diabetic neuropathy, unspecified; I34.0 Nonrheumatic mitral (valve) insufficiency; E78.5 Hyperlipidemia, unspecified; I25.5 Ischemic cardiomyopathy; Z20.822 Contact with and (suspected) exposure to COVID-19; I25.10 Atherosclerotic heart disease of native coronary artery without angina pectoris; Z98.61 Coronary angioplasty status; Z91.199 Patient's noncompliance with other medical treatment and regimen due to unspecified reason; Z90.710 Acquired absence of both cervix and uterus; Z90.49 Acquired absence of other specified parts of digestive tract; Z87.891 Personal history of nicotine dependence; Z79.899 Other long term (current) drug therapy; Z79.84 Long term (current) use of oral hypoglycemic drugs; Z79.82 Long term (current) use of aspirin; Z79.02 Long term (current) use of antithrombotics/antiplatelets; Z79.01 Long term (current) use of anticoagulants
CPT/HCPCS: 36415; 71045; 80048; 80053; 80307; 81001; 82962; 83036; 83605; 83735; 83880; 84443; 84484; 85025; 85610; 85730; 87081; 87426; 87804; 93005; 93306; 96365; 96375; G0378; J1815

== ENCOUNTER 2025-03-30 09:01 | Emergency (ER) | payer MEDICARE, MEDICAID ==
[~2025-03-30] VITALS: Ht 157.5 cm; Wt 74.4 kg
[~2025-03-30 09:01] MED LIST changes: -AMOX500C2 PO; -LOSA-535 PO; -MET50T PO; -METH2.5T SC; -METH2.5T62 PO; +POM SC; -RIVA20TA PO
[2025-03-30 09:02] VITALS: BP 164/65; PULSE 56; RESP 15; TEMP 98; O2SAT 96
--- NOTE | 2025-03-30 10:50 | ED.PDOC ---
HPI Comments 69 year old female with PMHx of CKD stage 4, HTN, and CHF presents to the ED for chief complaint of a wound on right leg. Pt states that wound appeared one month ago when patient popped a pimple and began scratching at it, causing irritation and redness. Pt was seen earlier today at urgent care for rash but states that she was referred to the ED for elevated blood pressure and further evaluation of wounds. Pt in the ED has noted red fleshy wound, and notes persistent pain. Pt denies associated symptoms of itchiness, numbness, fever or chills, with no noted exacerbating or relieving factors. Pt has elevated blood pressure of 154/62 with otherwise stable vitals. Pt denies any other symptoms at this time. Chief Complaint: Wound Check Time Seen by MD: 10:47 Primary Care Provider: ? Reviewed Notes: Nurses Notes Allergies: Coded Allergies: NO KNOWN ALLERGIES (Unverified , 08/20/19) Home Meds Active Scripts Sacubitril-Valsartan (Entresto 24-26 mg) 1 Tab Tab, 2 TAB PO BID, #180 TAB Prov:LENA PATTERSON MD 02/18/23 Carvedilol (Coreg) 12.5 Mg Tab, 1 TAB PO BID, #180 TAB 1 Refill Prov:LENA PATTERSON MD 02/18/23 Amiodarone Hcl (Amiodarone Hcl) 200 Mg Tab, 1 TAB PO BID, #180 TAB 5 Refills Prov:LENA PATTERSON MD 02/18/23 Reported Medications Patients Own Medication (PATIENTS OWN MEDICATION) ., 50 MG SC DAILY PTS OWN MED-OBTAIN FROM PT AND SEND TO RX DRUG:METHOTREXATE 50 MG FREQ:DAILY RX# EXP: DATE DISP: TECH: RPH: 11/23/24 Latanoprost (LATANOPROST) 0.005 % [place], 1 DROP EACHEYE QPM, #7.5 ML 3 Refills 09/14/24 Insulin Glargine (Basaglar Kwikpen) 100 Unit/Ml Inj, 100 UNIT SC, INJ 09/14/24 Metoprolol Succinate (Metoprolol Succinate Er) 100 Mg Tab, 1 TAB PO DAILY 09/14/24 Sertraline Hcl (Sertraline Hcl) 25 Mg Tab, 1 TAB PO DAILY, #30 TAB 2 Refills 09/11/24 Folic Zcjj-Jgqvhmnegb-Pgjebpyh (Folbic) Tab, 1 TAB PO DAILY, #90 TAB 1 Refill 09/11/24 Clopidogrel Bisulfate (CLOPIDOGREL) 75 Mg Tab, 1 TAB PO DAILY, #90 TAB 1 Refill 09/11/24 Atorvastatin Calcium (ATORVASTATIN CALCIUM) 80 Mg Tab, 1 TAB PO DAILY, #30 TAB 5 Refills 09/11/24 Aspirin (Aspir-81) 81 Mg Tab, 1 TAB PO DAILY, #30 TAB 5 Refills 09/11/24 Gabapentin (Gabapentin) 100 Mg Cap, 1 CAP PO DAILY 02/13/23 Hydrochlorothiazide W/Triamter (Dyazide 37.5/25MG) 1 Cap Cp, 1 CAP PO DAILY 02/13/23 Amlodipine Besylate (Amlodipine Besylate) 10 Mg Tab, 0.5 TAB PO DAILY 02/13/23 Metformin Hydrochloride (Metformin Hcl) 1,000 Mg Tab, 1 TAB PO BID 02/13/23 Glipizide (Glipizide) 10 Mg Tab, 1 TAB PO BID 02/13/23 Dronedarone Hydrochloride (Multaq) 400 Mg Tab, 1 TAB PO BID 02/13/23 Empagliflozin (Jardiance) 10 Mg Tab, 1 TAB PO DAILY 02/13/23 Apixaban Base (ELIQUIS) 5 Mg Tab, 1 TAB PO BID 02/13/23 Information Source: Patient, Relative (daughter) Mode of Arrival: Ambulatory Complexity: Simple Laceration Length (cm): 0 Past Medical History PAST MEDICAL HISTORY: AFIB, CAD, CHF, DM, High Lipids, HTN, [place] Surgical History: Cholecystectomy, , Hernia Repair, Hysterectomy, PTCA BUSINESS MANAGEMENT INTERN History: No Pertinent BUSINESS MANAGEMENT INTERN History Family History Family History: Family hx of heart zion Social History Smoker: Non-Smoker Alcohol: Denies ETOH Use Drugs: Denies Drug Use Lives In: Home Constitutional: denies: chills, diaphoresis, fatigue, fever, malaise, sweats, weakness, others EENTM: denies: blurred vision, double vision, ear bleeding, ear discharge, ear drainage, ear pain, ear ringing, eye pain, eye redness, hearing loss, mouth pain, mouth swelling, nasal discharge, nose bleeding, nose congestion, nose pain, photophobia, tearing, throat pain, throat swelling, voice changes, others Respiratory: denies: cough, hemoptysis, orthopnea, SOB at rest, shortness of breath, SOB with excertion, stridor, wheezing, others Cardiovascular: denies: chest pain, dizzy spells, diaphoresis, Dyspnea on exertion, edema, irregular heart beat, left arm pain, lightheadedness, palpitations, PND, syncope, others Gastrointestinal: denies: abdomen distended, abdominal pain, blood streaked bowels, constipated, diarrhea, dysphagia, difficulty swallowing, hematemesis, m wanda, nausea, poor appetite, poor fluid intake, rectal bleeding, rectal pain, vomiting, others Genitourinary: denies: abnormal vagina bleeding, burning, dyspareunia, dysuria, flank pain, frequency, hematuria, incontinence, pain, , vagina discharge, urgency, others Neurological: denies: dizziness, fainting, headache, left sided numbness, left sided weakness, numbness, paresthesia, pre-existing deficit, right sided numbness, right sided weakness, seizure, speech problems, tingling, tremors, weakness, others Musculoskeletal: denies: back pain, gout, joint pain, joint swelling, muscle pain, muscle stiffness, neck pain, others Integumetry: reports: change in color, rash, wounds; denies: bruises, change in hair/nails, dryness, laceration, lesions, lumps, others Allergic/Immunocompromised: denies: Difficulty Healing, Frequent Infections, Hives, Itching, others Hematologic/Lymphatic: denies: anemia, blood clots, easy bleeding, easy bruising, swollen glands, others Endocrine: denies: excessive hunger, excessive sweating, excessive thirst, excessive urination, flushing, intolerance to cold, intolerance to heat, unexplained weight gain, unexplained weight loss, others Psychiatric: denies: anxiety, bipolar disorder, depression, hopeless, panic disorder, schizophrenia, sleepless, suicidal, others All Other Systems: Reviewed and Negative Physical Exam General Appearance: No Apparent Distress, Normal HEENT: Normal ENT Inspection, Pharynx Normal, TMs Normal Neck: Full Range of Motion, Non-Tender, Normal, Normal Inspection Respiratory: Chest Non-Tender, Lungs Clear, No Accessory Muscle Use, No Respiratory Distress, Normal Breath Sounds Cardiovascular: No Edema, No JVD, No Murmur, No Gallop, Normal Peripheral Pulses, Regular Rate/Rhythm Breast Exam: Deferred Gastrointestinal: No Organomegaly, Non Tender, No Pulsatile Mass, Normal Bowel Sounds, Soft Genitalia: Deferred Pelvic: Deferred Rectal: Deferred Extremities: No calf tenderness, Normal capillary refill, Normal inspection, Normal range of motion, Non-tender, No pedal edema Neurologic: Alert, ophthalmic aide II-XII nml as Tested, No Motor Deficits, Normal Affect, Normal Mood, No Sensory Deficits Cerebellar Function: Normal Reflexes: Normal Skin: Bruises, Rash, Wounds (2cm alceration to the right calf with surrounding erythema) Lymphatic: No Adenopathy Was a procedure done? Was a procedure done?: No Differential diagnosis Suture Removal: Cellulitis, Wound Dehiscence Generic Laceration: Hematoma X-Ray, Labs, Meds, VS Vital Signs Date Time Temp Pulse Resp B/P (MAP) Pulse Ox O2 Delivery O2 Flow Rate FiO2 03/30/25 09:02 98.0 56 15 164/65 96 98.0 Time of 1ST Reevaluation: 11:27 Reevaluation 1ST: Unchanged Patient Education/Counseling: Diagnosis, Treatment Family Education/Counseling: Diagnosis, Treatment Departure 1 Departure Time of Disposition: 12:28 (Patient likely with cellulitis and lower extremity. We will discharge patient home with outpatient follow up) Impression: Primary Impression: Cellulitis Disposition: 01 HOME / SELF CARE / HOMELESS Condition: Stable Additional Instructions: You have cellulitis. This is a skin infection. You were prescribed antibiotics. Please take as directed. You can take tylenol and motrin as needed for pain. It is important that you follow up with your regular doctor within one week to ensure you are doing well. If your symptoms worsen or you have any other concerns then please return to the ER. e-Prescriptions Sulfamethoxazole W/Trimethopri (Bactrim Ds Tablet) 1 Tab Tb 1 TAB PO BID for 7 Days, #14 TAB Prov: ANGLE KEMP MD 03/30/25 Discharged With: Self Critical Care Note Critical Care Time?: No Stability Stability form required: No Heart Score Heart Score: Heart Score Response (Comments) Value History N/A 0 EKG N/A 0 Age N/A 0 Risk Factors N/A 0 Troponin N/A 0 Total 0 I personally scribed for ANGLE KEMP MD ([email or web address]) on 03/30/25 at 10:50. Electronically submitted by Leandra Dias (PPIMENTEL). I personally scribed for ANGLE KEMP MD ([facility]) on 03/30/25 at 10:53. Electronically submitted by Leandra Dias (PPIMENTEL). I personally scribed for ANGLE KEMP MD ([facility]) on 03/30/25 at 11:14. Electronically submitted by Leandra Dias (PPIMENTEL). I personally scribed for ANGLE KEMP MD ([facility]) on 03/30/25 at 12:13. El ectronically submitted by Leandra Dias (PPIMENTEL). ANGLE KEMP MD Mar 30, 2025 10:50
[2025-03-30] MEDS ORDERED: BACDST PO (12:29)
== END 2025-03-30 12:30 | disposition home or self-care (01) ==
LOC: ER 09:01
DX: S81.811A Laceration without foreign body, right lower leg, initial encounter (principal); L03.90 Cellulitis, unspecified; I13.0 Hypertensive heart and chronic kidney disease with heart failure and stage 1 through stage 4 chronic kidney disease, or unspecified chronic kidney disease; E11.22 Type 2 diabetes mellitus with diabetic chronic kidney disease; N18.4 Chronic kidney disease, stage 4 (severe); I50.9 Heart failure, unspecified; E78.5 Hyperlipidemia, unspecified; I48.91 Unspecified atrial fibrillation; I25.10 Atherosclerotic heart disease of native coronary artery without angina pectoris; Z79.899 Other long term (current) drug therapy; Z90.49 Acquired absence of other specified parts of digestive tract; Z79.82 Long term (current) use of aspirin; Z79.02 Long term (current) use of antithrombotics/antiplatelets; Z79.01 Long term (current) use of anticoagulants; Z90.710 Acquired absence of both cervix and uterus; Z79.84 Long term (current) use of oral hypoglycemic drugs; Z98.890 Other specified postprocedural states; X58.XXXA Exposure to other specified factors, initial encounter; Y93.89 Activity, other specified; Y92.89 Other specified places as the place of occurrence of the external cause; Y99.8 Other external cause status